=== PATIENT | male | born 1930 | race Caucasian/White ===

== ENCOUNTER → 2016-05-02 | Outpatient (CLI) | payer OTHER, MEDICARE ==
[~2016-05-02] MED LIST: ADVIN25050 INH; ASPCH81X PO; CARV12.52 PO; CZR25 PO; ERGO1CAP35 PO; FLM4 PO; FLUT0.15 NAE; FRRS300 PO; FRS/40 PO; HMLI SC; HYDR-5688 PO; INSDGIPEN SQ; INSU100I2 SC; INSUINJ4 SQ; IPRASOL4 INH; ISOS30TA13 PO; ISOS30TA35 PO; KETO2CRE14 TOP; LOSA1TAB PO; LSX20 PO; LSX40 PO; LSX80 PO; OMEP40CA PO; OMEP40CA41 PO; OXGN; POTA1TAB97 PO; POTA20TA13 PO; PRED1SUS3 OPL; PRVC40 PO; ROPI0.25 PO; SPRIN/30 INH; ZRX5 PO
[2016-05-02 10:17] LABS: ALT/SGPT 15 U/L (12-78); BLOOD UREA NITROGEN 44 mg/dl (7-18); BUN/CREATININE RATIO 25.9 (10-20); CALCIUM 8.9 mg/dl (8.5-10.1); CARBON DIOXIDE 29 mmol/L (21-32); CHLORIDE 101 mmol/L (98-107); CHOLESTEROL 156 mg/dl (0-200); GLUCOSE 115 mg/dl (70-99); POTASSIUM 4.3 mmol/L (3.5-5.1); SODIUM 139 mmol/L (136-145)
[2016-05-02 10:22] LABS: ESTIMATED AVERAGE GLUCOSE 154 mg/dl; HA1C FLAG Normal (Normal)
[2016-05-02 10:27] LABS: ALB/GLOB RATIO 0.9 (0.9-2); ALKALINE PHOSPHATASE 86 U/L (45-117); AST/SGOT 13 U/L (15-37); HDL CHOLESTEROL 39 mg/dl; LDL CHOLESTEROL CALCULATED 99 mg/dl; TRIGLYCERIDES 89 mg/dl (0-150); VERY LOW DENSITY LIPOPROT CALC 18 mg/dl
[2016-05-02 10:43] LABS: RATIO 17.4 mcg/mg (0-30.0)
== END | disposition home or self-care (01) ==
LOC: C.LABSPEC 10:38
PROVIDERS: ATTEND Nurse Practitioner Family
DX: E11.21 Type 2 diabetes mellitus with diabetic nephropathy (principal)

== ENCOUNTER → 2016-05-14 | Outpatient (CLI) | payer OTHER, MEDICARE ==
[2016-05-14 13:10] LABS: HEMATOCRIT 34.1 % (42-52); MEAN CELL VOLUME 93.4 fL (80-100); MEAN CORPUSCULAR HEMOGLOBIN 27.7 pg (25-34); MEAN CORPUSCULAR HGB CONC 29.6 g/dl (32-36); MEAN PLATELET VOLUME 11.5 fL (7.4-10.4); PLATELET COUNT 184 K/uL (130-400); RED BLOOD COUNT 3.65 M/uL (4.7-6.1); WHITE BLOOD COUNT 8.29 K/uL (4.8-10.8)
[2016-05-14 13:27] LABS: URINE APPEARANCE CLEAR (CLEAR); URINE BILIRUBIN NEG (NEG); URINE COLOR YELLOW; URINE EPITHELIAL CELL AUTO 0-5 /lpf (0-5); URINE NITRITE NEG (NEG); URINE SPECIFIC GRAVITY 1.011 (1.000-1.030); UROBILINOGEN NEG (NEG)
[2016-05-14 13:32] LABS: MANUAL MICROSCOPIC REQUIRED? NO; REVIEW REQ? NO
[2016-05-14 13:44] LABS: ALKALINE PHOSPHATASE 84 U/L (45-117); ALT/SGPT 16 U/L (12-78); AST/SGOT 12 U/L (15-37); BLOOD UREA NITROGEN 35 mg/dl (7-18); CALCIUM 9.5 mg/dl (8.5-10.1); CARBON DIOXIDE 33 mmol/L (21-32); CHLORIDE 103 mmol/L (98-107); GLUCOSE 42 mg/dl (70-99); POTASSIUM 4.3 mmol/L (3.5-5.1); SODIUM 142 mmol/L (136-145)
[2016-05-14 13:51] LABS: URINE PROTIEN/CREAT RATIO 0.1 (0-0.2); URINE TOTAL PROTEIN 7.1 mg/dl (0-11.9)
== END | disposition home or self-care (01) ==
LOC: C.LAB1850 11:15
PROVIDERS: ATTEND Internal Medicine Nephrology
DX: Z00.00 Encounter for general adult medical examination without abnormal findings (principal); E55.9 Vitamin D deficiency, unspecified; E11.22 Type 2 diabetes mellitus with diabetic chronic kidney disease; I12.9 Hypertensive chronic kidney disease with stage 1 through stage 4 chronic kidney disease, or unspecified chronic kidney disease; D64.9 Anemia, unspecified; R60.9 Edema, unspecified; N18.3 Chronic kidney disease, stage 3 (moderate)

== ENCOUNTER 2016-06-07 11:38 | Inpatient (IN) | payer OTHER, MEDICARE ==
[~2016-06-07] VITALS: Ht 177.8 cm; Wt 106.7 kg
[~2016-06-07 11:38] MED LIST changes: -ADVIN25050 INH; -CZR25 PO; -FLM4 PO; -FRRS300 PO; -INSDGIPEN SQ; -INSU100I2 SC; -ISOS30TA35 PO; -LSX20 PO; -LSX40 PO; -LSX80 PO; -OMEP40CA41 PO; -OXGN; -POTA20TA13 PO; -SPRIN/30 INH; -ZRX5 PO
--- NOTE | 2016-06-07 12:30 | EMERGENCY ROOM VISIT NOTE ---
History Report prepared by Lobo: Christopher Medina Under the Supervision of: Dr. Ilir Hampton M.D. First contact with patient: 12:18 Chief Complaint: RESPIRATORY DISTRESS Stated Complaint: SHORTNESS OF BREATH Nursing Triage Summary: Patient arrives via ALS from [facility] with complaints of SOB, worsens on exertion. HX of COPD and CHF. EMS reports patients pulse ox was in 80's at doc. office -- 2L applied and increased to 94% according to EMS. Bilateral wheezes noted along with dim lung sounds. History of Present Illness The patient is an 85 year old male with a history of COPD, CHF, a heart attack, and bypass surgery who presents to the Emergency Room via ALS with complaints of worsening shortness of breath that started a couple months ago. Per the patient's family, the patient is chronically short of breath, but his breathing has gotten much worse recently. The patient's shortness of breath is worsened on exertion. The patient has been treated for this shortness of breath in the past. 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 He notes that he has had a bit of coughing this morning, but not too much lately. The patient has anemia, and had blood work drawn yesterday. There is speculation that the patient is losing blood somehow, and he is very low on iron. His hemoglobin yesterday was 9. He does not wear oxygen at home, but he is in the high 80s currently. The patient denies any fevers, chest pain or new leg swelling. He does take at least 20 mg Lasix per day. He has used many inhalers, and has a nebulizer, which he uses 3 times per day. The patient is diabetic. He is not on any blood thinners. Source of History: patient, family Onset: A couple months ago Position: other (global - sob) Symptom Intensity: oxygen is in high 80s Timing: worsening Modifying Factors (Worsening): exertion Associated Symptoms: + cough, No chest pain, No fevers Note: Associated symptoms: Denies any new leg swelling. Review of Systems See HPI for pertinent positives & negatives. A total of 10 systems reviewed and were otherwise negative. Past Medical & Surgical Medical Problems: (1) CHF (congestive heart failure) (2) COPD (chronic obstructive pulmonary disease) (3) Diabetes (4) Heart disease Surgical Problems: (1) H/O heart bypass surgery Old medical records were reviewed. Nurse's notes were reviewed and I agree with. He does have a history of CHF. He is unsure if he has gained weight. He does not wear home oxygen Family History Family history omitted secondary to advanced age. Social History Smoking Status: Former Smoker Alcohol Use: none Drug Use: none Marital Status: Occupation Status: retired Current/Historical Medications Scheduled Aspirin (Aspirin Chewable), 81 MG PO QAM Carvedilol (Coreg), 12.5 MG PO BID Ergocalciferol (Vitamin D Cap), 50,000 INTER.UNIT PO WK Furosemide (Lasix), 1 TAB PO BID Insulin Glargine (Lantus Solostar Pen), 55 UNITS SQ HS Insulin Lispro (Humalog), 30 UNITS SC AC Isosorbide Mononitrate (Imdur), 30 MG PO QAM Ketoconazole 2% (Nizoral 2%), 1 APPLN TOP BID Losartan Potassium (Cozaar), 0.5 TAB PO QAM Omeprazole (Prilosec), 40 MG PO QAM Potassium Chloride (K-Tab), 1 TAB PO QAM Pravastatin Sod (Pravastatin Sodium), 1 TAB PO QPM Prednisolone Acetate 1% Oph (Pred Forte 1% Oph), 1 DROP OPL QAM Ropinirole (Requip), 0.25 MG PO HS Scheduled PRN Fluticasone Propionate (Nasal) (Flonase Allergy Relief), 2 SPRAY ELEUTERIO DAILY PRN for ALLERGY RELIEF Hydrocodone/Acetaminophen 5MG/325MG ([place] 5MG/325MG), 1-2 TABLET PO Q4H PRN for Pain Ipratropium-Albuterol (Duoneb), 1 TREATMENT INH Q6H PRN for Shortness of Breath Allergies Coded Allergies: Sulfa Antibiotics (Verified Allergy, Mild, RASH, 01/05/16) Atorvastatin (Verified Adverse Reaction, Mild, MYALGIA, 01/05/16) Enalapril (Verified Adverse Reaction, Mild, COUGH, 01/05/16) Simvastatin (Verified Adverse Reaction, Mild, MYALGIA, 01/05/16) Physical Exam Vital Signs Date Time Temp Pulse Resp B/P Pulse Ox O2 Delivery O2 Flow Rate FiO2 06/07/16 13:35 76 18 111/58 96 Nasal Cannula 2.0 06/07/16 13:05 74 20 114/58 96 Nasal Cannula 2.0 06/07/16 12:00 95 Nasal Cannula 2.0 06/07/16 11:54 97 Nasal Cannula 2.0 06/07/16 11:54 97 Nasal Cannula 2.0 06/07/16 11:54 36.8 87 20 127/68 86 Room Air 06/07/16 11:50 80 Physical Exam General: Well developed well nourished non ill appearing older male in no acute distress, resting comfortably on supplemental oxygen. Normal speech HEENT: Normal cephalic atraumatic. Pupils are equal round and reactive to light. Extraocular movements are intact. Oropharynx is pink with moist mucous membranes. No swelling of the mouth lips or tongue. Neck: Supple with a midline trachea. No meningeal signs or stiffness, no JVD or bruits. No Stridor. Chest: Crackles in bases, otherwise clear. Heart: regular rate and rhythm. Abdomen: Soft nontender, nondistended without rebound guarding or rigidity. Extremities: Bilateral pitting edema, left greater than right. No calf tenderness or assymetry Spine/Back. Non tender to palpation. No CVA tenderness Skin: Good turgor without rashes. Neurologic exam: Cranial nerves two through 12 are intact. Motor and sensation are intact and symmetrical throughout. Medical Decision & Procedures ER Provider Diagnostic Interpretation: X-ray results as stated below per interpretation by me and the radiologist: SINGLE VIEW CHEST CLINICAL HISTORY: Atypical chest pain. FINDINGS: An AP, portable, upright chest radiograph is compared to study dated 11/30/2014. The examination is degraded by portable technique and patient rotation. The patient is status post midline sternotomy. The heart is enlarged and there is atherosclerotic calcification of the thoracic aorta. There is pulmonary vascular congestion and mild interstitial edema. No focal airspace consolidation or large pleural effusion is identified. No pneumothorax is seen. The skeletal structures are osteopenic. Degenerative change is noted throughout the thoracic spine. IMPRESSION: Cardiomegaly with evidence of congestive failure and interstitial edema. Electronically signed by: Sheldon Oliva M.D. 06/07/2016 12:45 PM Dictated Date/Time: 06/07/2016 12:43 PM Laboratory Results 06/07/16 13:00 Red Blood Count 3.22, Mean Corpuscular Volume 93.5, Mean Corpuscular Hemoglobin 28.0, Mean Corpuscular Hemoglobin Concent 29.9, Mean Platelet Volume 10.6, Neutrophils (%) (Auto) 69.5, Lymphocytes (%) (Auto) 16.1, Monocytes (%) (Auto) 11.6, Eosinophils (%) (Auto) 1.5, Basophils (%) (Auto) 0.7, Neutrophils # (Auto ) 4.95, Lymphocytes # (Auto) 1.15, Monocytes # (Auto) 0.83, Eosinophils # (Auto ) 0.11, Basophils # (Auto) 0.05 06/07/16 13:00 Test 06/07/16 12:42 06/07/16 13:00 06/07/16 13:03 Bedside Glucose 174 mg/dl (70-99) White Blood Count 7.13 K/uL (4.8-10.8) Red Blood Count 3.22 M/uL (4.7-6.1) Hemoglobin 9.0 g/dL (14.0-18.0) Hematocrit 30.1 % (42-52) Mean Corpuscular Volume 93.5 fL (80-100) Mean Corpuscular Hemoglobin 28.0 pg (25-34) Mean Corpuscular Hemoglobin Concent 29.9 g/dl (32-36) Platelet Count 149 K/uL (130-400) Mean Platelet Volume 10.6 fL (7.4-10.4) Neutrophils (%) (Auto) 69.5 % Lymphocytes (%) (Auto) 16.1 % Monocytes (%) (Auto) 11.6 % Eosinophils (%) (Auto) 1.5 % Basophils (%) (Auto) 0.7 % Neutrophils # (Auto) 4.95 K/uL (1.4-6.5) Lymphocytes # (Auto) 1.15 K/uL (1.2-3.4) Monocytes # (Auto) 0.83 K/uL (0.11-0.59) Eosinophils # (Auto) 0.11 K/uL (0-0.5) Basophils # (Auto) 0.05 K/uL (0-0.2) RDW Standard Deviation 54.1 fL (36.4-46.3) RDW Coefficient of Variation 15.6 % (11.5-14.5) Immature Granulocyte % (Auto) 0.6 % Immature Granulocyte # (Auto) 0.04 K/uL (0.00-0.02) Prothrombin Time 12.7 SECONDS (9.0-12.0) Prothromb Time International Ratio 1.2 (0.9-1.1) Activated Partial Thromboplast Time 28.3 SECONDS (21.0-31.0) Partial Thromboplastin Ratio 1.1 Anion Gap 3.0 mmol/L (3-11) Est Creatinine Clear Calc Drug Dose 45.3 ml/min Estimated GFR () 48.2 Estimated GFR (Non- 41.6 BUN/Creatinine Ratio 28.7 (10-20) Calcium Level 9.0 mg/dl (8.5-10.1) Total Bilirubin 0.5 mg/dl (0.2-1) Direct Bilirubin 0.2 mg/dl (0-0.2) Aspartate Amino Transf (AST/SGOT) 17 U/L (15-37) Alanine Aminotransferase (ALT/SGPT) 18 U/L (12-78) Alkaline Phosphatase 82 U/L (45-117) Total Creatine Kinase 73 U/L (39-308) Creatine Kinase MB 4.6 ng/ml (0.5-3.6) Creatine Kinase MB Ratio 6.3 (0-3.0) Total Protein 7.1 gm/dl (6.4-8.2) Albumin 3.4 gm/dl (3.4-5.0) Lipase 120 U/L (73-393) Thyroid Stimulating Hormone (TSH) 4.590 uIu/ml (0.300-4.500) Bedside Troponin I 0.620 ng/ml (0-0.045) [id number]-Type Natriuretic Peptide 2851 pg/ml (0-1800) Laboratory studies as stated above per my review. Medications Administered Medications (Trade) Dose Ordered Sig/Dafne Route Start Time Stop Time Status Last Admin Dose Admin Albuterol Sulfate (Ventolin 0.083% 2.5MG/3ML Neb) 2.5 mg NOW STAT INH 06/07/16 12:31 06/07/16 12:33 DC 06/07/16 12:47 2.5 MG Furosemide (Lasix Inj) 20 mg NOW STAT IV 06/07/16 13:28 06/07/16 13:29 DC 06/07/16 13:34 20 MG ECG Indication: SOB/dyspnea Rate (beats per minute): 75 Findings: PAC (occasional), other (mild widening of QRS with nonspecific intraventricular conduction delay, nonspecific T-wave abnormalities) Comparison ECG Date: compared to May 19 2012, normal sinus rhythm has replaced atrial fibrillation ED Course 1219: Past medical records reviewed. The patient was evaluated in room A9B, and a complete history and physical examination were performed. 1231: Ordered Ventolin 0.083% 2.5MG/3ML Neb 2.5 mg INH. 1323: Upon reevaluation, the patient is resting comfortably. I discussed the results and treatment plan with the patient. She verbalized agreement of the treatment plan. The patient will be evaluated for further management. 1328: Ordered Lasix Inj 20 mg IV. 1344: I discussed the patient with Dr. Jolene SILVER hospitalist - he will evaluate the patient for further treatment. Medical Decision Differentials include, but are not limited to; CHF, COPD, cardiac disease, anemia, electrolyte or metabolic abnormality. This patient comes in as described above. He was placed in room A9. Here for treatment evaluation of increasing shortness of breath. He appears well on exam however when he exerts himself, he gets dyspnea on exertion. He does have some peripheral edema. He is on Lasix and he fdoes seem to take its intermittently. IV access established, EKG, and chest x-ray was obtained. He does have some crackles in the bases. On exam chest x-ray confirms CHF. BNP was also elevated troponin was also mildly elevated. He's had no chest pain. His EKG does not appear ischemic. He does have elevated BUN and creatinine however this is about baseline is potassium is mildly elevated at 5.2. He was given Lasix 20 mg IV. I do think he needs to be admitted for diuresis further treatment and evaluation and cardiac evaluation. I have consulted Dr. Stevenson who will see the patient and the ER and admit him for these measures. Consults Time Called: 1330 Consulting Physician: Dr. Jolene SILVER hospitalist Returned Call: 1342 I discussed the patient with Dr. Jolene dai - he will evaluate the patient for further treatment. Impression Primary Impression: CHF (congestive heart failure) Additional Impressions: Shortness of breath Hypoxemia Scribe Attestation The scribe's documentation has been prepared under my direction and personally reviewed by me in its entirety. I confirm that the note above accurately reflects all work, treatment, procedures, and medical decision making performed by me. Departure Information Dispostion Being Evaluated By Hospitalist Eren Ross M.D. (PCP) Patient Instructions Asthma - [facility], COPD - [facility], Croup - [facility], My [facility] Problem Qualifiers
[2016-06-07] MEDS ORDERED: ALBUTEROL 0.083% NEBU SOLN 3 ML VIAL INH STA (12:31)
--- NOTE | 2016-06-07 12:47 | DIAGNOSTIC IMAGING REPORT ---
SINGLE VIEW CHEST CLINICAL HISTORY: Atypical chest pain. FINDINGS: An AP, portable, upright chest radiograph is compared to study dated 11/30/2014. The examination is degraded by portable technique and patient rotation. The patient is status post midline sternotomy. The heart is enlarged and there is atherosclerotic calcification of the thoracic aorta. There is pulmonary vascular congestion and mild interstitial edema. No focal airspace consolidation or large pleural effusion is identified. No pneumothorax is seen. The skeletal structures are osteopenic. Degenerative change is noted throughout the thoracic spine. IMPRESSION: Cardiomegaly with evidence of congestive failure and interstitial edema. Electronically signed by: Sheldon Oliva M.D. 06/07/2016 12:45 PM Dictated Date/Time: 06/07/2016 12:43 PM
[2016-06-07 13:22] LABS: BASO % 0.7 %; BASO ABS # 0.05 K/uL (0-0.2); COMPLETE YES; EOS % 1.5 %; HEMATOCRIT 30.1 % (42-52); IG% 0.6 %; LYMPH % 16.1 %; LYMPH ABS # 1.15 K/uL (1.2-3.4); MEAN CELL VOLUME 93.5 fL (80-100); MEAN CORPUSCULAR HGB CONC 29.9 g/dl (32-36); MEAN PLATELET VOLUME 10.6 fL (7.4-10.4); MONO % 11.6 %; NEUT % 69.5 %; PLATELET COUNT 149 K/uL (130-400); RED BLOOD COUNT 3.22 M/uL (4.7-6.1); WHITE BLOOD COUNT 7.13 K/uL (4.8-10.8)
[2016-06-07 13:24] LABS: POINT OF CARE TROPONIN I 0.62 ng/ml (0-0.045)
[2016-06-07] MEDS ORDERED: FUROSEMIDE 40 MG/4 ML VIAL IV STA (13:28)
[2016-06-07 13:32] LABS: INR 1.2 (0.9-1.1); PARTIAL THROMBOPLASTIN RATIO 1.1; PROTHROMBIN TIME (PATIENT) 12.7 SECONDS (9.0-12.0)
[2016-06-07 13:39] LABS: BUN/CREATININE RATIO 28.7 (10-20); CREATININE 1.5 mg/dl (0.60-1.40); POTASSIUM 5.2 mmol/L (3.5-5.1)
[2016-06-07 13:50] LABS: CKMB/CK RATIO 6.3 (0-3.0); THYROID STIMULATING HORMONE 4.59 uIu/ml (0.300-4.500)
--- NOTE | 2016-06-07 14:54 | History and Physical ---
History & Physical Date & Time of Service: Jun 07, 2016 at 14:03 Chief Complaint: Shortness Of Breath Primary Care Physician: Eren Turner M.D. History of Present Illness Source: patient 85 year old male presents with 6 week history of progressively worsening SOB and lightheaded/dizziness, without LOC/falls. Associated with mild nausea, but no vomiting. Patient admits to having low energy. At baseline, patient denies exertional symptoms. He was able to walk and perform activities of daily living. Stairs were avoided, but patient claims he was able to do them slowly. Patient denies chest pain, diaphoresis, palpitations, cyanosis. Patient has had issues with sleep, he feels restless, which has been ongoing for a couple of months. Sleeps with a CPAP every night. Does not have home oxygen. Unable to lie flat in bed, but otherwise denies PND. Patient was prescribed Lasix 40mg, but has only been taking 40mg intermittently. On most days he is only taking 20mg to avoid spending excessive times in the bathroom urinating. Some education of patient required as patient was told that he needs to take Lasix in the morning, but avoided the 40mg because urination was impeding morning plans. Patient advised to take the 40mg at home after he returns from morning errands. Patient weighs himself very sporadically. But admits that he has experienced leg swelling and his clothes fit more tightly in the last 2 months. Patient says his baseline iron levels are 9-10. He is not on iron supplementation, but does take centrum multivitamin OTC. Patient denies blood in stool or urine, excessive bruising or bleeds otherwise. Previously similar episode of SOB 3-4 years ago, patient was found to have low iron then. Patient was given IV iron weekly x 6 weeks. He denies cause of low iron found at that time. He had a colonoscopy at the time, and patient states nothing abnormal was detected. Rent And Miscellaneous Remittance Clerk: Dr. Gann Solar Installer: Dr. Ferreira Past Medical/Surgical History Medical Problems: (1) CHF (congestive heart failure) Status: Resolved (2) COPD (chronic obstructive pulmonary disease) Status: Chronic (3) Diabetes Status: Chronic (4) Heart disease Status: Resolved Surgical Problems: (1) H/O heart bypass surgery Status: Resolved Social History Smoking Status: Former Smoker (ex- smoker of 1 year. 35 pack year history) Drug Use: none Marital Status: Housing status: lives with significant other Occupational Status: retired Immunizations History of Influenza Vaccine: Yes Influenza Vaccine Date: Nov 26, 2011 History of Tetanus Vaccine?: Unknown History of Pneumococcal: Yes History of Hepatitis B Vaccine: Unknown Multi-Drug Resistant Organisms History of MDRO: No Allergies Coded Allergies: Sulfa Antibiotics (Verified Allergy, Intermediate, RASH, 06/07/16) Atorvastatin (Verified Adverse Reaction, Mild, MYALGIA, 06/07/16) Enalapril (Verified Adverse Reaction, Mild, COUGH, 06/07/16) Simvastatin (Verified Adverse Reaction, Mild, MYALGIA, 06/07/16) Home Medications Scheduled Aspirin (Aspirin Chewable), 81 MG PO QAM Carvedilol (Coreg), 12.5 MG PO BID Furosemide (Furosemide), 1 TAB PO BID Insulin Glargine (Lantus Solostar), 55 UNITS SQ HS Insulin Lispro (Human) (Humalog Kwikpen), 30 UNITS SC AC Isosorbide Mononitrate Ext Rel (Imdur Ext Rel), 1 TAB PO DAILY Losartan Potassium (Losartan Potassium), 1 TAB PO DAILY Metolazone (Metolazone), 1 TAB PO DAILY Omeprazole (Prilosec), 1 TAB PO DAILY Potassium Chloride Microencaps (Potassium Chloride Er), 1 TAB PO DAILY Tiotropium [place] (Spiriva Handihaler), 1 PUFF INH DAILY Scheduled PRN Fluticasone Propionate (Nasal) (Flonase Allergy Relief), 2 SPRAY ELEUTERIO DAILY PRN for ALLERGY RELIEF Ipratropium-Albuterol (Duoneb), 1 TREATMENT INH Q6H PRN for Shortness of Breath Review of Systems Constitutional: + fatigue, + weakness, No chills, No fever, No sweats Respiratory: + cough (present at baseline), + dyspnea on exertion, + shortness of breath, No dyspnea at rest Cardiovascular: + edema, + orthopnea, No PND, No chest pain Abdomen: + nausea, No GI bleeding, No constipation, No diarrhea, No vomiting Musculoskeletal: + joint pain (ongoing) Genitourinary - Male: No dysuria, No hematuria Allergic / Immunologic: No environmental allergies, No food allergies, No seasonal allergies Physical Exam Vital Signs Date Time Temp Pulse Resp B/P Pulse Ox O2 Delivery O2 Flow Rate FiO2 06/07/16 13:35 76 18 111/58 96 Nasal Cannula 2.0 06/07/16 13:05 74 20 114/58 96 Nasal Cannula 2.0 06/07/16 12:00 95 Nasal Cannula 2.0 06/07/16 11:54 97 Nasal Cannula 2.0 06/07/16 11:54 97 Nasal Cannula 2.0 06/07/16 11:54 36.8 87 20 127/68 86 Room Air 06/07/16 11:50 80 General Appearance: WD/WN, + mild distress Head: normocephalic, atraumatic Eyes: normal inspection, PERRL, EOMI, sclerae normal, + pertinent finding ( conjunctival pallor) ENT: pharynx normal Neck: supple, no adenopathy, thyroid normal, + JVD Respiratory/Chest: chest non-tender, no accessory muscle use, + respiratory distress, + decreased breath sounds (bibasilar), + crackles Cardiovascular: regular rate, rhythm, normal peripheral pulses, + JVD, + systolic murmur Abdomen/GI: normal bowel sounds, non tender, + distended Extremities/Musculoskelatal: no calf tenderness, + pedal edema, + swelling Neurologic/Psych: alert, normal mood/affect, oriented x 3 Skin: normal color, warm/dry, + pertinent finding (skin changes consistent with chronic venous inufficiency) Diagnostics Laboratory Results Results Past 24 Hours Test 06/07/16 12:42 06/07/16 13:00 06/07/16 13:03 Range/Units Bedside Glucose 174 70-99 mg/dl White Blood Count 7.13 4.8-10.8 K/uL Red Blood Count 3.22 4.7-6.1 M/uL Hemoglobin 9.0 14.0-18.0 g/dL Hematocrit 30.1 42-52 % Mean Corpuscular Volume 93.5 80-100 fL Mean Corpuscular Hemoglobin 28.0 25-34 pg Mean Corpuscular Hemoglobin Concent 29.9 32-36 g/dl Platelet Count 149 130-400 K/uL Mean Platelet Volume 10.6 7.4-10.4 fL Neutrophils (%) (Auto) 69.5 % Lymphocytes (%) (Auto) 16.1 % Monocytes (%) (Auto) 11.6 % Eosinophils (%) (Auto) 1.5 % Basophils (%) (Auto) 0.7 % Neutrophils # (Auto) 4.95 1.4-6.5 K/uL Lymphocytes # (Auto) 1.15 1.2-3.4 K/uL Monocytes # (Auto) 0.83 0.11-0.59 K/uL Eosinophils # (Auto) 0.11 0-0.5 K/uL Basophils # (Auto) 0.05 0-0.2 K/uL RDW Standard Deviation 54.1 36.4-46.3 fL RDW Coefficient of Variation 15.6 11.5-14.5 % Immature Granulocyte % (Auto) 0.6 % Immature Granulocyte # (Auto) 0.04 0.00-0.02 K/uL Prothrombin Time 12.7 9.0-12.0 SECONDS Prothromb Time International Ratio 1.2 0.9-1.1 Activated Partial Thromboplast Time 28.3 21.0-31.0 SECONDS Partial Thromboplastin Ratio 1.1 Sodium Level 142 136-145 mmol/L Potassium Level 5.2 3.5-5.1 mmol/L Chloride Level 107 98-107 mmol/L Carbon Dioxide Level 32 21-32 mmol/L Anion Gap 3.0 3-11 mmol/L Blood Urea Nitrogen 43 7-18 mg/dl Creatinine 1.50 0.60-1.40 mg/dl Est Creatinine Clear Calc Drug Dose 45.3 ml/min Estimated GFR () 48.2 Estimated GFR (Non- 41.6 BUN/Creatinine Ratio 28.7 10-20 Random Glucose 167 70-99 mg/dl Calcium Level 9.0 8.5-10.1 mg/dl Total Bilirubin 0.5 0.2-1 mg/dl Direct Bilirubin 0.2 0-0.2 mg/dl Aspartate Amino Transf (AST/SGOT) 17 15-37 U/L Alanine Aminotransferase (ALT/SGPT) 18 12-78 U/L Alkaline Phosphatase 82 45-117 U/L Total Creatine Kinase 73 39-308 U/L Creatine Kinase MB 4.6 0.5-3.6 ng/ml Creatine Kinase MB Ratio 6.3 0-3.0 Total Protein 7.1 6.4-8.2 gm/dl Albumin 3.4 3.4-5.0 gm/dl Lipase 120 73-393 U/L Thyroid Stimulating Hormone (TSH) 4.590 0.300-4.500 uIu/ml Bedside Troponin I 0.620 0-0.045 ng/ml [id number]-Type Natriuretic Peptide 2851 0-1800 pg/ml other (Cardiomegaly with evidence of congestive failure and interstitial) EKG Normal sinus rhythm with PACs, ST & T wave abnormality, , consider inferior ischemia T wave inversion less evident in Inferior leads T wave inversion now evident in Lateral leads Abnormal ECG Compared with ECG of 19-MAY-2012 15:07, Sinus rhythm has replaced Atrial fibrillation other (Normal sinus rhythm with PACs, T wave inversion in lateral leads) Impression Assessment and Plan 85 year old male admitted for acute on chronic CHF with elevated troponin and EKG changes noted. Acute CHF with hypoxemia - Switch from Lasix 40mg daily to Lasix IV 40mg BID - Continue metolazone 5mg half hour before morning dose of lasix - Continue KCl supplementation - Monitor BMP - Strict I/O's, daily weights, AHA and salt restricted diet - O2 via NC as per protocol Anemia - Anemia workup: ferritin, TIBC, retic count, ESR, B12, folate, FOBT - Monitor H/H - Consider hematology vs. GI consult BPH - Started on Tamsulosin 0.4mg HS upon admission COPD - Continue Spiriva and DuoNeb DM - Continue Glargine 55units HS and hold Humalog 30units before meals. Start insulin sliding scale ACHS MS s/p CABG in 1988 - Serial trops q8h x 2 more - Cardiology consult in view of elevated initial troponin - Repeat EKG - Echo - Continue aspirin 81mg daily, carvedilol 12.5mg BID, Imdur 30 mg qAM, pravastatin 40mg qPM, Losartan 12.5mg qAM ATILIO - CPAP overnight GERD - Pantoprazole PO 40mg qAM DVT prophylaxis - SCDs Code Status: Full code Dispo: Telemetry Level of Care Telemetry Advanced Directives Existing Advance Directive: No Existing Living Will: Yes Existing Power of Department Supervisor: No Existing Health Care Proxy: No Resuscitation Status FULL RESUSCITATION VTE Prophylaxis VTE Risk Assessment Done? Y/N: Yes Risk Level: Moderate Given or contraindicated: SCD's Social Service Consult None Apply Assessment and Plan Attending Addendum: I have physically seen and examined this patient, have directed their medical care, have supervised the medical residents activities, and agree with the H&P as noted above, with the following changes: NONE
[2016-06-07] MEDS ORDERED: ACETAMINOPHEN 325 MG TAB PO PRN (15:15)
[2016-06-07] MEDS ORDERED: ALBUT/IPRATROP 3MG/0.5MG NEB 3 ML VIAL INH PRN (15:15)
[2016-06-07] MEDS ORDERED: ALUMINUM/MAGNESIUM/SIMETH (MAALOX MAX) 30 ML UDC PO PRN (15:15)
[2016-06-07] MEDS ORDERED: MAGNESIUM HYDROXIDE SUSP 30 ML UDC PO PRN (15:15)
[2016-06-07] MEDS ORDERED: ONDANSETRON INJ 2 MG/ML 2 ML VIAL IV PRN (15:15)
[2016-06-07] MEDS ORDERED: HYDROCODONE/ACETAMOPHEN 5/325MG TAB PO PRN (15:15)
[2016-06-07] MEDS ORDERED: SPRIN/30 INH (15:23)
[2016-06-07] MEDS ORDERED: INSDGIPEN SQ (15:23)
[2016-06-07] MEDS ORDERED: ZRX5 PO (15:23)
[2016-06-07] MEDS ORDERED: INSU100I2 SC (15:23)
[2016-06-07] MEDS ORDERED: POTA20TA13 PO (15:23)
[2016-06-07] MEDS ORDERED: OMEP40CA41 PO (15:23)
[2016-06-07] MEDS ORDERED: ISOS30TA35 PO (15:23)
[2016-06-07] MEDS ORDERED: CZR25 PO (15:23)
[2016-06-07] MEDS ORDERED: LSX40 PO (15:23)
[2016-06-07] MEDS ORDERED: POLYETHYLENE (MIRALAX) 17 GM PACK PO PRN (16:00)
[2016-06-07] MEDS ORDERED: INSULIN ASPART 100 UNITS/ML 3 ML PEN SC SCH (16:00)
[2016-06-07] MEDS ORDERED: GLUCOSE 40% GEL 15 GM TUBE PO PRN (16:15)
[2016-06-07] MEDS ORDERED: GLUCOSE 10 TABS/TUBE PO PRN (16:15)
[2016-06-07] MEDS ORDERED: DEXTROSE 50% 50 ML SYR IV PRN (16:15)
[2016-06-07] MEDS ORDERED: GLUCAGON FOR INJ 1 MG VIAL SQ PRN (16:15)
[2016-06-07 17:01] VITALS: BP 132/74; PULSE 88; TEMP 36.5; O2SAT 98
[2016-06-07 17:04] VITALS: O2SAT 98; BMI 34.5
[2016-06-07 18:00] LABS: FERRITIN 31.2 ng/ml (8.0-388.0)
[2016-06-07] MEDS: INSULIN ASPART 100 UNITS/ML 3 ML PEN SC SCH ×2 (18:12→21:03)
[2016-06-07 18:21] VITALS: BP 132/74; PULSE 88; TEMP 36.5; O2SAT 98
[2016-06-07 19:34] VITALS: BP 139/76; PULSE 94; TEMP 36.5; O2SAT 97
[2016-06-07] MEDS: TAMSULOSIN HCL 0.4 MG CAP PO SCH (20:47)
[2016-06-07] MEDS: PRAVASTATIN SOD 40 MG TAB PO SCH (20:48)
[2016-06-07] MEDS: ROPINIROLE HCL 0.25 MG TAB PO SCH (20:48)
[2016-06-07] MEDS: CARVEDILOL 12.5 MG TAB PO SCH (20:49)
[2016-06-07] MEDS: FUROSEMIDE INJ 40 MG in SYRINGE 0 ML IV SCH (20:50)
[2016-06-07] MEDS: INSULIN GLARGINE SOLOSTAR 100 UNITS/ML 3 ML PEN SQ SCH (21:03)
[2016-06-07] MEDS: KETOCONAZOLE 2% CR 15 GM TUBE EXT SCH (21:06)
[2016-06-07 23:50] VITALS: BP 134/71; PULSE 87; TEMP 36.3; O2SAT 95
[2016-06-08] VITALS (8 sets, daily range): BP systolic 110–138; BP diastolic 58–72; PULSE 67–87; TEMP 35.8–36.6; O2SAT 90–98
[2016-06-08] MEDS: KETOCONAZOLE 2% CR 15 GM TUBE EXT SCH ×2 (07:29→20:55)
[2016-06-08 07:30] LABS: BUN/CREATININE RATIO 28.9 (10-20); CALCIUM 8.9 mg/dl (8.5-10.1); CREATININE 1.5 mg/dl (0.60-1.40); POTASSIUM 4.7 mmol/L (3.5-5.1)
[2016-06-08] MEDS: FUROSEMIDE INJ 40 MG in SYRINGE 0 ML IV SCH ×2 (07:30→17:22)
[2016-06-08] MEDS: ISOSORBIDE MONONITRATE 30 MG TABCR PO SCH (07:30)
[2016-06-08] MEDS: CARVEDILOL 12.5 MG TAB PO SCH ×2 (07:30→20:56)
[2016-06-08] MEDS: LOSARTAN POTASSIUM 25 MG TAB PO SCH (07:31)
[2016-06-08] MEDS: METOLAZONE 5 MG TAB PO SCH (07:32)
[2016-06-08] MEDS: PANTOprazole SOD 40 MG TAB PO SCH (07:32)
[2016-06-08] MEDS: ASPIRIN 81 MG ECTAB PO SCH (07:33)
[2016-06-08] MEDS: TIOTROPIUM BROMIDE 5 PUFF/90 MCG INH INH SCH (07:33)
[2016-06-08] MEDS: PrednisoLONE ACET 1% OP SUSP 5 ML BTL OPL SCH (07:34)
[2016-06-08 07:40] LABS: HEMATOCRIT 32.3 % (42-52); MEAN CELL VOLUME 95.8 fL (80-100); MEAN CORPUSCULAR HEMOGLOBIN 27.6 pg (25-34); MEAN CORPUSCULAR HGB CONC 28.8 g/dl (32-36); MEAN PLATELET VOLUME 11.3 fL (7.4-10.4); PLATELET COUNT 149 K/uL (130-400); RED BLOOD COUNT 3.37 M/uL (4.7-6.1); WHITE BLOOD COUNT 6.93 K/uL (4.8-10.8)
[2016-06-08 07:59] LABS: BASO % 0.6 %; BASO ABS # 0.04 K/uL (0-0.2); COMPLETE YES; IG% 0.4 %; LYMPH % 15.9 %; MONO % 9.4 %; NEUT % 72.7 %
[2016-06-08] MEDS ORDERED: POTASSIUM CHLORIDE 20 MEQ TABCR PO SCH (08:00)
[2016-06-08] MEDS: INSULIN ASPART 100 UNITS/ML 3 ML PEN SC SCH ×4 (08:30→20:59)
[2016-06-08] MEDS ORDERED: NON-FORMULARY MEDICATION (Omeprazole (Prilosec) 40 MG) PO SCH (09:00)
[2016-06-08] MEDS ORDERED: POTASSIUM CHLORIDE PO SCH (09:00)
[2016-06-08] MEDS ORDERED: FUROSEMIDE INJ 40 MG in SYRINGE 0 ML IV SCH (09:00)
--- NOTE | 2016-06-08 09:07 | Clinical Documentation Query ---
IVIS Castle : CLINICAL DOCUMENTATION QUERIES QUERY 1 OF 3 Patient is an 85 year old male admitted for evaluation and treatment of CHF, not otherwise specified. Most recent echocardiogram (05/07) demonstrated a moderately dilated LV with moderately reduced systolic function. Estimated LVEF at this time was 30-35%. Class I diastolic dysfunction also noted. He is being treated with IV Lasix, oral Metazolone, and will be monitored on telemetry with I/O, daily weights, a salt restricted diet, supplemental O2, and serial chemistries. Please specify as able. In your clinical opinion is this patient being managed for: (x ) Acute on chronic systolic congestive heart failure ( ) Other explanation of clinical findings (Please Explain) ( ) Unable to determine (Please Define) ( ) Need to Discuss ( ) Not Agree The medical record reflects the following clinical findings, treatment, and risk factors. Clinical Indicators: As above Treatment:He is being treated with IV Lasix, oral Metazolone, and will be monitored on telemetry with I/O, daily weights, a salt restricted diet, supplemental O2, and serial chemistries Risk Factors:Age, noncompliance, chronic systolic CHF QUERY 2 OF 3 Serum troponin noted to be elevated in the range of 0.807 ng/ml initially, down to 0.416 ng/ml. Initial EKG with ST and T wave abnormalities in inferior leads. Cardiology has been consulted, he is to have an echocardiogram, and is on ASA, Carvedilol, Imdur, Losartan, and Pravastatin in addition to supplemental oxygen. Please clarify as clinically appropriate when/as able. In your clinical opinion is this patient being managed for: ( x ) Myocardial demand ischemia ( ) NSTEMI ( ) Other explanation of clinical findings (Please Explain) ( ) Unable to determine (Please Define) ( ) Need to Discuss ( ) Not Agree The medical record reflects the following clinical findings, treatment, and risk factors. Clinical Indicators: As above Treatment:Cardiology has been consulted, he is to have an echocardiogram, and is on ASA, Carvedilol, Imdur, Losartan, and Pravastatin in addition to supplemental oxygen Risk Factors: Age, acute on chronic systolic CHF, DM, heart disease, COPD QUERY 3 OF 3 Admission BUN and creatinine of 43 mg/dl and 1.50 mg/dl. EMR review demonstrates an estimated GFR range of 36-51 ml/min dating back to 05/15/12. He is being monitored with serial chemistries. Please clarify as clinically appropriate. In your clinical opinion is this patient being managed for: (x ) Chronic kidney disease, stage 3 ( ) Other explanation of clinical findings (Please Explain) ( ) Unable to determine (Please Define) ( ) Need to Discuss ( ) Not Agree The medical record reflects the following clinical findings, treatment, and risk factors. Clinical Indicators: As above Treatment: Serial chemistries Risk Factors: Age, chronic systolic CHF, DM, medications Please clarify and document your clinical opinion in the progress notes and discharge summary. Terms such as "probable", "suspected", "likely", "questionable", "possible", or "still to be ruled out" are acceptable. IF IN AGREEMENT, YOU MUST DOCUMENT ABOVE DIAGNOSTIC STATEMENT IN DAILY PROGRESS NOTES AND DISCHARGE SUMMARY. This document is not part of the patient's record. Thank You, Ilir Zee, LARISSA [phone]
--- NOTE | 2016-06-08 10:17 | Cardiology Consultation ---
Cardiology Consultation Date of Consultation: Jun 08, 2016. Requesting Physician: Dr. Carlton Attending Physician: Dr. Gann Reason for Consultation: Elevated troponin, history of HI Pt evaluation today including: conversation w/ patient, physical exam, chart review, lab review, review of studies, review of inpatient medication list, conversation w/ attending History of Present Illness Mr. Rivera is an 85-year-old male with a past medical history significant for coronary artery disease (CABG x2 in 1996), cardiomyopathy (EF 40-45%), chronic combined systolic and diastolic CHF, mild aortic stenosis, hypertension, hypercholesterolemia, chronic renal insufficiency, insulin dependent diabetes mellitus, and obstructive sleep apnea who presented to the ED yesterday with complaints of worsening dyspnea on exertion over the previous month. Patient has chronic dyspnea with more exertional activities, but over the last few weeks , he has been noting dyspnea with his activities of daily living. He has also noted lower extremity edema as well as abdominal bloating. He denies shortness of breath at rest, orthopnea, or PND. He does not weigh himself regularly at home. He has not been following a low sodium diet and admits to eating potato chips. He has only been taking 40 mg Lasix daily instead of his prescribed 80 mg daily due to frequent urination. He continues with Metolazone 5 mg daily. He denies any chest discomfort or other anginal type symptoms. He notes lightheadedness upon initially standing, which resolves within 1 minute. This has been an ongoing complaint and is stable in nature. He denies syncope, presyncope, palpitations, abnormal bleeding, or cerebrovascular symptoms. Review of Systems: As noted in HPI. All other 10 point ROS otherwise negative. Family History Noncontributory given his own disease. Social History Smoking Status: Former Smoker History of Alcohol Use: Yes (1 DRINK PER DAY) Quit smoking 1 year ago, but previously smoked for 75 years. He drinks 1 alcoholic beverage daily. He denies drug use. Allergies Coded Allergies: Sulfa Antibiotics (Verified Allergy, Intermediate, RASH, 06/07/16) Atorvastatin (Verified Adverse Reaction, Mild, MYALGIA, 06/07/16) Enalapril (Verified Adverse Reaction, Mild, COUGH, 06/07/16) Simvastatin (Verified Adverse Reaction, Mild, MYALGIA, 06/07/16) Medications Current Inpatient Medications Medications (Trade) Dose Ordered Sig/[place] Route Start Time Stop Time Status Last Admin Dose Admin Acetaminophen (Tylenol Tab) 650 mg Q4H PRN PO 06/07/16 15:15 07/07/16 15:14 Al Hydrox/Mg Hydrox/Simethicone (Maalox Max Susp) 15 ml Q4H PRN PO 06/07/16 15:15 07/07/16 15:14 Magnesium Hydroxide (Milk Of Magnesia Susp) 30 ml Q6H PRN PO 06/07/16 15:15 07/07/16 15:14 Polyethylene (Miralax Powder Packet) 17 gm DAILY PRN PO 06/07/16 16:00 07/07/16 15:59 Ondansetron HCl (Zofran Inj) 4 mg Q6H PRN IV 06/07/16 15:15 07/07/16 15:14 Aspirin (Ecotrin Tab) 81 mg QAM PO 06/08/16 08:00 07/08/16 08:59 06/08/16 07:33 81 MG Carvedilol (Coreg Tab) 12.5 mg BID PO 06/07/16 20:00 07/07/16 20:59 06/08/16 07:30 12.5 MG Ergocalciferol (Vitamin D Cap) 50,000 interunit Th@0900 PO 06/14/16 09:00 07/14/16 08:59 Fluticasone Propionate (Flonase Nasal [place]) 2 sprays DAILY PRN ELEUTERIO 06/07/16 15:15 07/07/16 15:14 Acetaminophen/ Hydrocodone Bitart ([place] 5/325 Tab) 1 tab Q4H PRN PO 06/07/16 15:15 06/21/16 15:14 Insulin Glargine (Lantus Solostar Pen) 55 unit HS SQ 06/07/16 21:00 07/07/16 20:59 06/07/16 21:03 55 UNIT Albuterol/ Ipratropium (Duoneb) 3 ml Q6R PRN INH 06/07/16 15:15 07/07/16 15:14 Isosorbide Mononitrate (Imdur Ext Rel Tab) 30 mg QAM PO 06/08/16 08:00 07/08/16 08:59 06/08/16 07:30 30 MG Ketoconazole (Nizoral 2% Crm) 1 appln BID EXT 06/07/16 20:00 06/17/16 20:59 06/08/16 07:29 1 APPLN Losartan Potassium (coZAAR TAB) 12.5 mg QAM PO 06/08/16 08:00 07/08/16 08:59 06/08/16 07:31 12.5 MG Pravastatin Sodium (Pravachol Tab) 40 mg QPM PO 06/07/16 21:00 07/07/16 20:59 06/07/16 20:48 40 MG Prednisolone Acetate (Pred Forte 1% Oph Susp) 1 drops QAM OPL 06/08/16 08:00 07/08/16 08:59 06/08/16 07:34 1 DROPS Ropinirole HCl 0.25 mg 0.25 mg HS PO 06/07/16 21:00 07/07/16 20:59 06/07/16 20:48 0.25 MG Furosemide/Syringe (Lasix Inj/ Syringe) 4 ml @ 4 mls/min BID17 IV 06/07/16 21:00 07/07/16 20:59 06/08/16 07:30 4 MLS/MIN Tiotropium [place] (Spiriva Handihaler Inhaler) 1 puff DAILY INH 06/08/16 08:00 07/08/16 08:59 06/08/16 07:33 1 PUFF Tamsulosin HCl (Flomax Cap) 0.4 mg HS PO 06/07/16 21:00 07/07/16 20:59 06/07/16 20:47 0.4 MG Metolazone (Zaroxolyn Tab) 5 mg DAILY@0830 PO 06/08/16 08:30 07/08/16 08:29 06/08/16 07:32 5 MG Insulin Aspart (novoLOG ASPART) SLIDING SCALE If C... ACHS SC 06/07/16 21:00 07/07/16 20:59 06/08/16 08:30 5 UNITS Glucose (Glucose 40% Gel) UD PRN PO 06/07/16 16:15 07/07/16 16:14 Glucose (Glucose Chew Tab) 1 tabs UD PRN PO 06/07/16 16:15 07/07/16 16:14 Dextrose (Dextrose 50% 50ML Syringe) 50 ml UD PRN IV 06/07/16 16:15 07/07/16 16:14 Glucagon (Glucagon Inj) 1 mg UD PRN SQ 06/07/16 16:15 07/07/16 16:14 Pantoprazole Sodium (Protonix Tab) 40 mg QAM PO 06/08/16 08:00 07/08/16 08:59 06/08/16 07:32 40 MG Physical Exam Vital Signs Past 12 Hours Date Time Temp Pulse Resp B/P Pulse Ox O2 Delivery O2 Flow Rate FiO2 06/08/16 09:07 93 Nasal Cannula 2.0 06/08/16 07:15 36.5 87 16 138/69 90 2.0 06/08/16 04:50 35.8 67 18 110/71 98 BiPAP 06/08/16 04:00 CPAP 2.0 06/08/16 00:01 CPAP 2.0 06/07/16 23:50 36.3 87 18 134/71 95 CPAP Constitutional: Alert, oriented, in no acute distress HEENT: Head is atraumatic and normocephalic. EOMs intact. Sclera anicteric. Face is symmetric. No perioral cyanosis. Mucous membranes moist. Neck: Supple, jugular venous pressure difficult to asses given thick neck Pulmonary: Normal respiratory effort, bibasilar crackles Cardiac: Regular rate and rhythm, normal S1 and S2, no gallops, no rubs, 1/6 basal systolic murmur Extremities: Trace right lower extremity edema. +1 left lower extremity edema. No clubbing or cyanosis. Pulses intact. Abdomen: Obese. Normal bowel sounds, soft, non-tender, no abdominal mass palpated Skin: Chronic venous stasis skin changes of bilateral lower extremities Neurological: Oriented to person, place, and time Data Laboratory Results: Last 24 Hours Test 06/07/16 12:42 06/07/16 13:00 06/07/16 13:03 06/07/16 17:20 Bedside Glucose 174 mg/dl White Blood Count 7.13 K/uL Red Blood Count 3.22 M/uL Hemoglobin 9.0 g/dL Hematocrit 30.1 % Mean Corpuscular Volume 93.5 fL Mean Corpuscular Hemoglobin 28.0 pg Mean Corpuscular Hemoglobin Concent 29.9 g/dl Platelet Count 149 K/uL Mean Platelet Volume 10.6 fL Neutrophils (%) (Auto) 69.5 % Lymphocytes (%) (Auto) 16.1 % Monocytes (%) (Auto) 11.6 % Eosinophils (%) (Auto) 1.5 % Basophils (%) (Auto) 0.7 % Neutrophils # (Auto) 4.95 K/uL Lymphocytes # (Auto) 1.15 K/uL Monocytes # (Auto) 0.83 K/uL Eosinophils # (Auto) 0.11 K/uL Basophils # (Auto) 0.05 K/uL RDW Standard Deviation 54.1 fL RDW Coefficient of Variation 15.6 % Immature Granulocyte % (Auto) 0.6 % Immature Granulocyte # (Auto) 0.04 K/uL Erythrocyte Sedimentation Rate 10 mm/hr Absolute Reticulocyte Count 0.09 10^6/uL Percent Reticulocyte Count 2.8 % Prothrombin Time 12.7 SECONDS Prothromb Time International Ratio 1.2 Activated Partial Thromboplast Time 28.3 SECONDS Partial Thromboplastin Ratio 1.1 Sodium Level 142 mmol/L Potassium Level 5.2 mmol/L Chloride Level 107 mmol/L Carbon Dioxide Level 32 mmol/L Anion Gap 3.0 mmol/L Blood Urea Nitrogen 43 mg/dl Creatinine 1.50 mg/dl Est Creatinine Clear Calc Drug Dose 45.3 ml/min Estimated GFR () 48.2 Estimated GFR (Non- 41.6 BUN/Creatinine Ratio 28.7 Random Glucose 167 mg/dl Calcium Level 9.0 mg/dl Total Bilirubin 0.5 mg/dl Direct Bilirubin 0.2 mg/dl Aspartate Amino Transf (AST/SGOT) 17 U/L Alanine Aminotransferase (ALT/SGPT) 18 U/L Alkaline Phosphatase 82 U/L Total Creatine Kinase 73 U/L Creatine Kinase MB 4.6 ng/ml Creatine Kinase MB Ratio 6.3 Troponin I 0.807 ng/ml 0.869 ng/ml Total Protein 7.1 gm/dl Albumin 3.4 gm/dl Lipase 120 U/L Thyroid Stimulating Hormone (TSH) 4.590 uIu/ml Bedside Troponin I 0.620 ng/ml UT-Xbi-T-Type Natriuretic Peptide 2851 pg/ml Total Iron Binding Capacity 437 mcg/dl Ferritin 31.2 ng/ml Test 06/07/16 17:36 06/07/16 19:40 06/07/16 20:27 06/07/16 22:23 Bedside Glucose 220 mg/dl 199 mg/dl Vitamin B12 Level 614 pg/mL Folate 18.57 ng/mL Troponin I 0.666 ng/ml Test 06/08/16 00:29 06/08/16 06:26 06/08/16 07:57 Bedside Glucose 165 mg/dl 135 mg/dl White Blood Count 6.93 K/uL Red Blood Count 3.37 M/uL Hemoglobin 9.3 g/dL Hematocrit 32.3 % Mean Corpuscular Volume 95.8 fL Mean Corpuscular Hemoglobin 27.6 pg Mean Corpuscular Hemoglobin Concent 28.8 g/dl Platelet Count 149 K/uL Mean Platelet Volume 11.3 fL Neutrophils (%) (Auto) 72.7 % Lymphocytes (%) (Auto) 15.9 % Monocytes (%) (Auto) 9.4 % Eosinophils (%) (Auto) 1.0 % Basophils (%) (Auto) 0.6 % Neutrophils # (Auto) 5.04 K/uL Lymphocytes # (Auto) 1.10 K/uL Monocytes # (Auto) 0.65 K/uL Eosinophils # (Auto) 0.07 K/uL Basophils # (Auto) 0.04 K/uL RDW Standard Deviation 54.2 fL RDW Coefficient of Variation 15.6 % Immature Granulocyte % (Auto) 0.4 % Immature Granulocyte # (Auto) 0.03 K/uL Nucleated RBC Absolute Count (auto) 0.02 K/uL Nucleated Red Blood Cells % 0.3 % Sodium Level 141 mmol/L Potassium Level 4.7 mmol/L Chloride Level 104 mmol/L Carbon Dioxide Level 33 mmol/L Anion Gap 4.0 mmol/L Blood Urea Nitrogen 43 mg/dl Creatinine 1.50 mg/dl Est Creatinine Clear Calc Drug Dose 44.3 ml/min Estimated GFR () 48.2 Estimated GFR (Non- 41.6 BUN/Creatinine Ratio 28.9 Random Glucose 129 mg/dl Calcium Level 8.9 mg/dl Troponin I 0.416 ng/ml CXR: Cardiomegaly with evidence of congestive failure and interstitial edema. EKG 06/07/16: Normal sinus rhythm with PACs. Inferior T wave abnormality. EKG 06/08/16: Normal sinus rhythm. Inferior T wave abnormality. Telemetry reviewed: Sinus rhythm with occasional PVCs Echo 09/18/16: Mildly reduced LV systolic function. EF 40-45%. Inferior wall motion abnormality. Mild aortic stenosis, mitral regurgitation, and tricuspid regurgitation. Assessment & Plan ASSESSMENT/PLAN: 1. Acute on chronic combined systolic and diastolic CHF: He presented with increased SANCHEZ, edema, and abdominal bloating. CXR shows pulmonary vascular congestion, and his BNP was elevated at 2851. The exacerbation is likely due to dietary indiscretion as well as noncompliance with his medication since he has only been taking half his prescribed Lasix dose. He continues to appear hypervolemic on exam. Agree with echocardiogram to ensure his LV systolic function is stable and there are no new wall motion abnormalities. Continue Lasix 40 mg IV BID and Metolazone 5 mg daily 30 mins prior to morning Lasix dose. If he does not received adequate diuresis with this dose, recommending increasing his Lasix to 80 mg IV BID. Recommend close monitoring of I&O's as well as PRP. He was educated on the importance of low sodium diet and daily weights. 2. Elevated troponin: His Troponin peaked at 0.869 and has subsequently trended down. The elevation is likely due to hypervolemia. He denies anginal symptoms, and ECG shows no acute ischemic change. Continue with diuresis as noted above. Echocardiogram pending. 3. Coronary artery disease: He denies angina. Continue aspirin, statin, beta eladio, long acting nitrate, and ARB. Echocardiogram pending. 4. Hypertension: His blood pressure has been well controlled. Continue current therapy. Thank you for allowing us to see this patient in consultation. The patient was seen and discussed with Dr. Gann, and the plan was made in collaboration with him. Attending Pt seen and examined. Agree with Ms. Bobo's assessment and plan.
--- NOTE | 2016-06-08 11:16 | Hospitalist Progress Note ---
Hospitalist Progress Note Date of Service Jun 08, 2016. (Dafne Allred PA-C) Subjective Pt evaluation today including: conversation w/ patient, physical exam, chart review, lab review, review of studies, review of inpatient medication list Patient admits to feeling slightly lightheaded upon standing. Still feeling somewhat short of breath. Particularly winded with exertion. Denies any chest pain or pressure. No heart palpitations. Denies any cough. No fever or chills. Additional Comments: 6 system review negative. Please see pertinent positives in the history of present illness section. (Dafne Allred PA-C) Objective Vital Signs Date Time Temp Pulse Resp B/P Pulse Ox O2 Delivery O2 Flow Rate FiO2 06/08/16 09:07 93 Nasal Cannula 2.0 06/08/16 07:15 36.5 87 16 138/69 90 2.0 06/08/16 04:50 35.8 67 18 110/71 98 BiPAP 06/08/16 04:00 CPAP 2.0 06/08/16 00:01 CPAP 2.0 06/07/16 23:50 36.3 87 18 134/71 95 CPAP 06/07/16 20:20 Nasal Cannula 2.0 06/07/16 19:34 36.5 94 18 139/76 97 Nasal Cannula 2.0 06/07/16 18:21 36.5 88 22 98 2.0 06/07/16 17:04 98 Nasal Cannula 2.0 06/07/16 17:01 36.5 88 22 132/74 98 Nasal Cannula 2.0 06/07/16 15:10 81 22 113/57 97 Nasal Cannula 2.0 06/07/16 13:35 76 18 111/58 96 Nasal Cannula 2.0 06/07/16 13:05 74 20 114/58 96 Nasal Cannula 2.0 06/07/16 12:00 95 Nasal Cannula 2.0 06/07/16 11:54 97 Nasal Cannula 2.0 06/07/16 11:54 97 Nasal Cannula 2.0 06/07/16 11:54 36.8 87 20 127/68 86 Room Air 06/07/16 11:50 80 (Dafne Allred PA-C) Physical Exam General Appearance: + mild distress (mild respiratory distress) Eyes: EOMI ENT: + pertinent finding (oral mucosa slightly dry. No exudate noted.) Neck: no JVD Respiratory/Chest: + pertinent finding (decreased breath sounds at the bases bilaterally. No wheezing or rhonchi.) Cardiovascular: + pertinent finding (occasionally irregular. No murmur auscultated.) Abdomen: normal bowel sounds, non tender, soft Extremities: + pertinent finding (pitting edema in the lower extremities left greater than right. No erythema, warmth or tenderness appreciated.) Neurologic/Psychiatric: no motor/sensory deficits, oriented x 3 Skin: warm/dry (Dafne Allred PA-C) Laboratory Results 06/08/16 06:26 Red Blood Count 3.37, Mean Corpuscular Volume 95.8, Mean Corpuscular Hemoglobin 27.6, Mean Corpuscular Hemoglobin Concent 28.8, Mean Platelet Volume 11.3, Neutrophils (%) (Auto) 72.7, Lymphocytes (%) (Auto) 15.9, Monocytes (%) (Auto) 9.4, Eosinophils (%) (Auto) 1.0, Basophils (%) (Auto) 0.6, Neutrophils # (Auto) 5.04, Lymphocytes # (Auto) 1.10, Monocytes # (Auto) 0.65, Eosinophils # (Auto) 0.07, Basophils # (Auto) 0.04 06/08/16 06:26 Test 06/07/16 13:00 06/07/16 13:03 06/07/16 17:20 06/07/16 19:40 Erythrocyte Sedimentation Rate 10 mm/hr (0-14) Absolute Reticulocyte Count 0.09 10^6/uL (0.02-0.10) Percent Reticulocyte Count 2.8 % (0.5-2.0) Prothrombin Time 12.7 SECONDS (9.0-12.0) Prothromb Time International Ratio 1.2 (0.9-1.1) Activated Partial Thromboplast Time 28.3 SECONDS (21.0-31.0) Partial Thromboplastin Ratio 1.1 Total Bilirubin 0.5 mg/dl (0.2-1) Direct Bilirubin 0.2 mg/dl (0-0.2) Aspartate Amino Transf (AST/SGOT) 17 U/L (15-37) Alanine Aminotransferase (ALT/SGPT) 18 U/L (12-78) Alkaline Phosphatase 82 U/L (45-117) Total Creatine Kinase 73 U/L (39-308) Creatine Kinase MB 4.6 ng/ml (0.5-3.6) Creatine Kinase MB Ratio 6.3 (0-3.0) Total Protein 7.1 gm/dl (6.4-8.2) Albumin 3.4 gm/dl (3.4-5.0) Lipase 120 U/L (73-393) Thyroid Stimulating Hormone (TSH) 4.590 uIu/ml (0.300-4.500) Bedside Troponin I 0.620 ng/ml (0-0.045) AS-Jlc-[id number]-Type Natriuretic Peptide 2851 pg/ml (0-1800) Total Iron Binding Capacity 437 mcg/dl (250-450) Ferritin 31.2 ng/ml (8.0-388.0) Vitamin B12 Level 614 pg/mL (211-911) Folate 18.57 ng/mL (>5.38) Test 06/08/16 06:26 06/08/16 07:57 White Blood Count 6.93 K/uL (4.8-10.8) Red Blood Count 3.37 M/uL (4.7-6.1) Hemoglobin 9.3 g/dL (14.0-18.0) Hematocrit 32.3 % (42-52) Mean Corpuscular Volume 95.8 fL (80-100) Mean Corpuscular Hemoglobin 27.6 pg (25-34) Mean Corpuscular Hemoglobin Concent 28.8 g/dl (32-36) Platelet Count 149 K/uL (130-400) Mean Platelet Volume 11.3 fL (7.4-10.4) Neutrophils (%) (Auto) 72.7 % Lymphocytes (%) (Auto) 15.9 % Monocytes (%) (Auto) 9.4 % Eosinophils (%) (Auto) 1.0 % Basophils (%) (Auto) 0.6 % Neutrophils # (Auto) 5.04 K/uL (1.4-6.5) Lymphocytes # (Auto) 1.10 K/uL (1.2-3.4) Monocytes # (Auto) 0.65 K/uL (0.11-0.59) Eosinophils # (Auto) 0.07 K/uL (0-0.5) Basophils # (Auto) 0.04 K/uL (0-0.2) RDW Standard Deviation 54.2 fL (36.4-46.3) RDW Coefficient of Variation 15.6 % (11.5-14.5) Immature Granulocyte % (Auto) 0.4 % Immature Granulocyte # (Auto) 0.03 K/uL (0.00-0.02) Nucleated RBC Absolute Count (auto) 0.02 K/uL (0-0) Nucleated Red Blood Cells % 0.3 % Anion Gap 4.0 mmol/L (3-11) Est Creatinine Clear Calc Drug Dose 44.3 ml/min Estimated GFR () 48.2 Estimated GFR (Non- 41.6 BUN/Creatinine Ratio 28.9 (10-20) Calcium Level 8.9 mg/dl (8.5-10.1) Troponin I 0.416 ng/ml (0-0.045) Bedside Glucose 135 mg/dl (70-99) Last 24 Hours Test 06/07/16 12:42 06/07/16 13:00 06/07/16 13:03 06/07/16 17:20 Bedside Glucose 174 mg/dl White Blood Count 7.13 K/uL Red Blood Count 3.22 M/uL Hemoglobin 9.0 g/dL Hematocrit 30.1 % Mean Corpuscular Volume 93.5 fL Mean Corpuscular Hemoglobin 28.0 pg Mean Corpuscular Hemoglobin Concent 29.9 g/dl Platelet Count 149 K/uL Mean Platelet Volume 10.6 fL Neutrophils (%) (Auto) 69.5 % Lymphocytes (%) (Auto) 16.1 % Monocytes (%) (Auto) 11.6 % Eosinophils (%) (Auto) 1.5 % Basophils (%) (Auto) 0.7 % Neutrophils # (Auto) 4.95 K/uL Lymphocytes # (Auto) 1.15 K/uL Monocytes # (Auto) 0.83 K/uL Eosinophils # (Auto) 0.11 K/uL Basophils # (Auto) 0.05 K/uL RDW Standard Deviation 54.1 fL RDW Coefficient of Variation 15.6 % Immature Granulocyte % (Auto) 0.6 % Immature Granulocyte # (Auto) 0.04 K/uL Erythrocyte Sedimentation Rate 10 mm/hr Absolute Reticulocyte Count 0.09 10^6/uL Percent Reticulocyte Count 2.8 % Prothrombin Time 12.7 SECONDS Prothromb Time International Ratio 1.2 Activated Partial Thromboplast Time 28.3 SECONDS Partial Thromboplastin Ratio 1.1 Sodium Level 142 mmol/L Potassium Level 5.2 mmol/L Chloride Level 107 mmol/L Carbon Dioxide Level 32 mmol/L Anion Gap 3.0 mmol/L Blood Urea Nitrogen 43 mg/dl Creatinine 1.50 mg/dl Est Creatinine Clear Calc Drug Dose 45.3 ml/min Estimated GFR () 48.2 Estimated GFR (Non- 41.6 BUN/Creatinine Ratio 28.7 Random Glucose 167 mg/dl Calcium Level 9.0 mg/dl Total Bilirubin 0.5 mg/dl Direct Bilirubin 0.2 mg/dl Aspartate Amino Transf (AST/SGOT) 17 U/L Alanine Aminotransferase (ALT/SGPT) 18 U/L Alkaline Phosphatase 82 U/L Total Creatine Kinase 73 U/L Creatine Kinase MB 4.6 ng/ml Creatine Kinase MB Ratio 6.3 Troponin I 0.807 ng/ml 0.869 ng/ml Total Protein 7.1 gm/dl Albumin 3.4 gm/dl Lipase 120 U/L Thyroid Stimulating Hormone (TSH) 4.590 uIu/ml Bedside Troponin I 0.620 ng/ml QG-Atb-[id number]-Type Natriuretic Peptide 2851 pg/ml Total Iron Binding Capacity 437 mcg/dl Ferritin 31.2 ng/ml Test 06/07/16 17:36 06/07/16 19:40 06/07/16 20:27 06/07/16 22:23 Bedside Glucose 220 mg/dl 199 mg/dl Vitamin B12 Level 614 pg/mL Folate 18.57 ng/mL Troponin I 0.666 ng/ml Test 06/08/16 00:29 06/08/16 06:26 06/08/16 07:57 Bedside Glucose 165 mg/dl 135 mg/dl White Blood Count 6.93 K/uL Red Blood Count 3.37 M/uL Hemoglobin 9.3 g/dL Hematocrit 32.3 % Mean Corpuscular Volume 95.8 fL Mean Corpuscular Hemoglobin 27.6 pg Mean Corpuscular Hemoglobin Concent 28.8 g/dl Platelet Count 149 K/uL Mean Platelet Volume 11.3 fL Neutrophils (%) (Auto) 72.7 % Lymphocytes (%) (Auto) 15.9 % Monocytes (%) (Auto) 9.4 % Eosinophils (%) (Auto) 1.0 % Basophils (%) (Auto) 0.6 % Neutrophils # (Auto) 5.04 K/uL Lymphocytes # (Auto) 1.10 K/uL Monocytes # (Auto) 0.65 K/uL Eosinophils # (Auto) 0.07 K/uL Basophils # (Auto) 0.04 K/uL RDW Standard Deviation 54.2 fL RDW Coefficient of Variation 15.6 % Immature Granulocyte % (Auto) 0.4 % Immature Granulocyte # (Auto) 0.03 K/uL Nucleated RBC Absolute Count (auto) 0.02 K/uL Nucleated Red Blood Cells % 0.3 % Sodium Level 141 mmol/L Potassium Level 4.7 mmol/L Chloride Level 104 mmol/L Carbon Dioxide Level 33 mmol/L Anion Gap 4.0 mmol/L Blood Urea Nitrogen 43 mg/dl Creatinine 1.50 mg/dl Est Creatinine Clear Calc Drug Dose 44.3 ml/min Estimated GFR () 48.2 Estimated GFR (Non- 41.6 BUN/Creatinine Ratio 28.9 Random Glucose 129 mg/dl Calcium Level 8.9 mg/dl Troponin I 0.416 ng/ml (Dafne Allred PA-C) Assessment and Plan 85-year-old male presents emergency department with a few weeks of dyspnea on exertion Acute on chronic systolic/diastolic heart failure/acute respiratory failure with hypoxia -Continue diuresis with Lasix 40 mg IV BID -Strict I and O's -Appreciate cardiology consult. I will increase Lasix tomorrow to 80 IV twice a day if he is not adequately diuresing -Continue metolazone -Follow-up echo Elevated troponin-likely secondary to heart failure mixed with renal insufficiency. No anginal symptoms. Trending down. History of coronary artery disease, CABG 2 -Continue aspirin 81 mg daily, Imdur ER 30 mg daily, carvedilol 12.5 mg BID, pravastatin 40 mg daily and losartan 12.5 mg daily Anemia-normocytic normochromic -Vitamin B-12 and folate levels within normal limits -TIBC and ferritin also within normal limits -Follow up fecal occult blood -No need for transfusion at this point Chronic kidney disease stage III-creatinine is at baseline 1.5 Diabetes mellitus type 2 -Continue Lantus 55 units at night and Humalog 30 units TID with meals -Additional coverage with insulin sliding scale is provided DVT prophylaxis -Heparin 5000 u subQ BID -TEDS, SCDs CODE STATUS -LEVEL I FULL CODE (Dafne Allred, PATatyana) Attending Attestation: Pt seen/examined, chart reviewed, care plan d/w LUIS M Allred. I agree w/ the oates components of her documentation. Still w/ dyspnea at rest/exertion & orthopnea. tele stable overnight. VSS no fever minimal diuresis to date gen - dyspneic neck - due to neck size unable to assess JVD heart - RRR, s1, s2, 2/6 systolic murmur RUSB lungs - crackles bases, end-exp wheeze, tachypnea abd - distended, BS+, liver edge not palpable ext - edema present, 2-3+ on left, 1-2+ on right labs - Cr 1.5 noted minor elevations in troponins A/P: 1. acute/chronic systolic/diastolic CHF - due to med/diet noncompliance. Cont lasix diuresis. 2. anemia - ferritin level low-normal. Suspect iron deficiency. Start supplementation. 3. T2DM - cont basal-bolus insulin. 4. CKD stage 3 - daily BMP. 5. ATILIO - CPAP. updated PT, OT while here Lobo Heard MD (Lobo Heard MD)
--- NOTE | 2016-06-08 17:01 | ECHOCARDIOGRAM REPORT ---
*NOTICE TO RECEIVING [employer] This information is strictly Confidential and protected under [place] law. [place] law prohibits you from making any further disclosure of this information unless further disclosure is expressly permitted by the written consent of the person to whom it pertains or is authorized by law. A general authorization for the release of medical or other information is not sufficient for this purpose. Hospital accepts no responsibility if the information is made available to any other person, INCLUDING THE PATIENT. Interpretation Summary * Name: PARVEZ TUTTLE Study Date: 06/08/2016 02:30 PM BP: 118/58 mmHg * Patient Location: [facility] HR: 79 * : 1930 (M/d/yyyy) Gender: Male Height: 70 in * Age: 85 yrs Ethnicity: [place] Weight: 258 lb * Ordering Physician: Bertha Carlton. * Referring Physician: Self, Referred * Performed By: [facility] * * Reason For Study: CHF * BSA: 2.3 m2 * -- Conclusions -- * The left ventricle is moderately dilated. * There is mild concentric left ventricular hypertrophy. * Left ventricular systolic function is moderately reduced. * Diastolic dysfunction, Grade III, consistent with marked congestive heart failure. * There are regional wall motion abnormalities as specified. * The left atrium is borderline dilated. * Mild aortic regurgitation. * Mild valvular aortic stenosis. * Degree of may be underestimated due to reduced LV function * There is moderate mitral regurgitation. * Right ventricular systolic pressure is elevated at >60mmHg. * Mild aortic root dilatation. * Compared to a study from 2013, the aortic root measures larger and the pulmonary pressures are higher, otherwise minimal change Procedure Details * A complete two-dimensional transthoracic echocardiogram was performed (2D, M-mode, Doppler and color flow Doppler). Left Ventricle * The left ventricle is moderately dilated. * There is mild concentric left ventricular hypertrophy. * Ejection Fraction = 25-30%. * Left ventricular systolic function is moderately reduced. * Diastolic dysfunction, Grade III, consistent with marked congestive heart failure. * There are regional wall motion abnormalities as specified. * Inferior wall and septum are severely hypokinetic. Right Ventricle * The right ventricle is normal in size and function. Atria * The left atrium is borderline dilated. * Right atrial size is normal. Mitral Valve * The mitral valve is grossly normal. * There is moderate mitral regurgitation. Tricuspid Valve * The tricuspid valve is not well visualized, but is grossly normal. * There is mild tricuspid regurgitation. * Right ventricular systolic pressure is elevated at >60mmHg. Aortic Valve * Mild valvular aortic stenosis. * Degree of may be underestimated due to reduced LV function * Mild aortic regurgitation. Great Vessels * Mild aortic root dilatation. Pericardium/Pleural * There is no pericardial effusion. Great Vessels * Dilated inferior vena cava with reduced collapsability with sniff indicates an elevated right atrial pressure of 15 mmHg MMode 2D Measurements and Calculations IVSd 1.3 cm IVSs 1.6 cm LVIDd 6.5 cm LVIDs 5.8 cm LVPWd 1.2 cm LVPWs 1.5 cm IVS/LVPW 1.1 FS 9.9 % EDV(Teich) 212.5 ml ESV(Teich) 167.6 ml EF(Teich) 21.1 % EDV(cubed) 268.8 ml ESV(cubed) 196.8 ml EF(cubed) 26.8 % % IVS thick 24.5 % % LVPW thick 25.7 % LV mass(C)d 383.8 grams LV mass(C)dI 165.0 grams/m\S\2 LV mass(C)s 443.9 grams LV mass(C)sI 190.9 grams/m\S\2 SV(Teich) 44.9 ml SI(Teich) 19.3 ml/m\S\2 SV(cubed) 72.1 ml SI(cubed) 31.0 ml/m\S\2 Ao root diam 4.3 cm Ao root area 14.2 cm\S\2 ACS 1.3 cm LA dimension 4.0 cm LA/Ao 0.94 LVOT diam 2.1 cm LVOT area 3.5 cm\S\2 LVAd ap4 45.0 cm\S\2 LVLd ap4 9.6 cm EDV(MOD-sp4) 174.7 ml EDV(sp4-el) 178.7 ml LVAs ap4 38.9 cm\S\2 LVLs ap4 8.6 cm ESV(MOD-sp4) 143.5 ml ESV(sp4-el) 149.7 ml EF(MOD-sp4) 17.9 % EF(sp4-el) 16.2 % LVAd ap2 58.1 cm\S\2 LVLd ap2 9.9 cm EDV(MOD-sp2) 277.9 ml EDV(sp2-el) 290.5 ml LVAs ap2 50.8 cm\S\2 LVLs ap2 10.0 cm ESV(MOD-sp2) 211.4 ml ESV(sp2-el) 219.3 ml EF(MOD-sp2) 23.9 % EF(sp2-el) 24.5 % LVLd %diff 2.5 % EDV(MOD-bp) 221.7 ml LVLs %diff 13.9 % ESV(MOD-bp) 189.6 ml EF(MOD-bp) 14.5 % SV(MOD-sp4) 31.2 ml SI(MOD-sp4) 13.4 ml/m\S\2 SV(MOD-sp2) 66.5 ml SI(MOD-sp2) 28.6 ml/m\S\2 SV(MOD-bp) 32.1 ml SI(MOD-bp) 13.8 ml/m\S\2 SV(sp4-el) 28.9 ml SI(sp4-el) 12.4 ml/m\S\2 SV(sp2-el) 71.2 ml SI(sp2-el) 30.6 ml/m\S\2 Doppler Measurements and Calculations MV E max erinn 146.0 cm/sec MV A max erinn 71.0 cm/sec MV E/A 2.1 MV P1/2t max erinn 146.0 cm/sec MV P1/2t 55.1 msec MVA(P1/2t) 4.0 cm\S\2 MV dec slope 775.4 cm/sec\S\2 MV dec time 0.14 sec Ao V2 max 224.7 cm/sec Ao max PG 20.2 mmHg Ao max PG (full) 17.6 mmHg Ao V2 mean 150.3 cm/sec Ao mean PG 10.7 mmHg Ao V2 VTI 48.0 cm LAURIE(V,A) 1.2 cm\S\2 LAURIE(V,D) 1.2 cm\S\2 AI max erinn 359.5 cm/sec AI max PG 51.7 mmHg AI dec slope 405.7 cm/sec\S\2 AI P1/2t 259.6 msec LV V1 max PG 2.6 mmHg LV V1 max 80.9 cm/sec MR max erinn 453.3 cm/sec MR max PG 82.2 mmHg SV(Ao) 682.3 ml SI(Ao) 293.3 ml/m\S\2 PA V2 max 96.5 cm/sec PA max PG 3.7 mmHg TR max erinn 333.9 cm/sec
[2016-06-08] MEDS: ROPINIROLE HCL 0.25 MG TAB PO SCH (20:56)
[2016-06-08] MEDS: TAMSULOSIN HCL 0.4 MG CAP PO SCH (20:56)
[2016-06-08] MEDS: PRAVASTATIN SOD 40 MG TAB PO SCH (20:57)
[2016-06-08] MEDS: INSULIN GLARGINE SOLOSTAR 100 UNITS/ML 3 ML PEN SQ SCH (21:00)
[2016-06-08] MEDS: HEPARIN SOD 5000 UNIT/0.5 ML CARP SQ SCH (21:00)
[2016-06-09] VITALS (9 sets, daily range): BP systolic 111–122; BP diastolic 54–68; PULSE 71–83; TEMP 36.3–36.8; O2SAT 90–98
[2016-06-09 05:58] LABS: HEMATOCRIT 30.8 % (42-52); MEAN CELL VOLUME 94.2 fL (80-100); MEAN CORPUSCULAR HEMOGLOBIN 27.2 pg (25-34); MEAN CORPUSCULAR HGB CONC 28.9 g/dl (32-36); MEAN PLATELET VOLUME 10.7 fL (7.4-10.4); PLATELET COUNT 143 K/uL (130-400); RED BLOOD COUNT 3.27 M/uL (4.7-6.1); WHITE BLOOD COUNT 5.66 K/uL (4.8-10.8)
[2016-06-09 06:14] LABS: BUN/CREATININE RATIO 34.4 (10-20); CALCIUM 8.9 mg/dl (8.5-10.1); CREATININE 1.4 mg/dl (0.60-1.40); POTASSIUM 4.2 mmol/L (3.5-5.1)
[2016-06-09 06:15] LABS: BASO % 0.7 %; BASO ABS # 0.04 K/uL (0-0.2); COMPLETE YES; EOS % 1.8 %; HYPOCHROMIA PRESENT; IG% 0.2 %; LARGE PLATELETS 2+; LYMPH % 17.8 %; LYMPH ABS # 1.01 K/uL (1.2-3.4); MONO % 15.9 %; NEUT % 63.6 %
[2016-06-09] MEDS: INSULIN ASPART 100 UNITS/ML 3 ML PEN SC SCH ×4 (06:30→21:01)
[2016-06-09] MEDS: TIOTROPIUM BROMIDE 5 PUFF/90 MCG INH INH SCH (07:58)
[2016-06-09] MEDS: PrednisoLONE ACET 1% OP SUSP 5 ML BTL OPL SCH (07:58)
[2016-06-09] MEDS: METOLAZONE 5 MG TAB PO SCH (08:00)
[2016-06-09] MEDS: LOSARTAN POTASSIUM 25 MG TAB PO SCH (08:00)
[2016-06-09] MEDS: PANTOprazole SOD 40 MG TAB PO SCH (08:00)
[2016-06-09] MEDS: ASPIRIN 81 MG ECTAB PO SCH (08:02)
[2016-06-09] MEDS: ISOSORBIDE MONONITRATE 30 MG TABCR PO SCH (08:02)
[2016-06-09] MEDS: KETOCONAZOLE 2% CR 15 GM TUBE EXT SCH ×2 (08:03→20:55)
[2016-06-09] MEDS: CARVEDILOL 12.5 MG TAB PO SCH ×2 (08:03→20:55)
[2016-06-09] MEDS: HEPARIN SOD 5000 UNIT/0.5 ML CARP SQ SCH ×2 (08:06→21:03)
[2016-06-09] MEDS ORDERED: FUROSEMIDE INJ 80 MG in SYRINGE 0 ML IV SCH (09:00)
[2016-06-09] MEDS: BISACODYL 5 MG TABEC PO SCH (09:17)
[2016-06-09] MEDS: FERROUS SULFATE 325 MG TAB PO SCH ×2 (09:17→17:45)
[2016-06-09] MEDS: DOCUSATE SODIUM 100 MG CAP PO SCH ×2 (09:17→20:55)
--- NOTE | 2016-06-09 11:01 | Hospitalist Progress Note ---
Hospitalist Progress Note Date of Service Jun 09, 2016. (Dafne Allred PA-C) Subjective Pt evaluation today including: conversation w/ patient, conversation w/ family , physical exam, chart review, lab review, conversation w/ finance consultant, review of inpatient medication list Patient thinks that his breathing is much improved today. He does complain that he had a terrible night sleep. The bed was uncomfortable. He was woken up several times. He also had to urinate many times during the night. He very much wants to be discharged today. He denies any chest pain or pressure. He has not yet had a bowel movement. He denies any heart palpitations. Additional Comments: 6 system review negative. Please see pertinent positives in the history of present illness section. (Dafne Allred PA-C) Objective Vital Signs Date Time Temp Pulse Resp B/P Pulse Ox O2 Delivery O2 Flow Rate FiO2 06/09/16 08:00 92 Nasal Cannula 2.0 06/09/16 04:31 36.4 82 20 115/65 94 CPAP 06/09/16 04:17 CPAP 06/09/16 00:57 CPAP 06/08/16 23:57 36.3 77 18 124/72 96 CPAP 06/08/16 21:33 84 93 2.0 06/08/16 20:10 Nasal Cannula 2.0 06/08/16 19:42 36.4 80 20 110/68 96 Nasal Cannula 2.5 06/08/16 16:10 Nasal Cannula 2.0 06/08/16 15:44 36.3 83 16 124/65 97 Nasal Cannula 2.5 06/08/16 11:55 36.6 85 16 118/58 95 2.0 (Dafne Allred PA-C) Physical Exam General Appearance: no apparent distress ENT: + pertinent finding (oral mucosa dry. No exudate noted.) Neck: no JVD Respiratory/Chest: + pertinent finding (mildly decreased breath sounds at the bases bilaterally. No rales auscultated. No wheezing or rhonchi.) Cardiovascular: regular rate, rhythm, no murmur, + pertinent finding Abdomen: normal bowel sounds, non tender, soft Extremities: + pertinent finding (pedal edema in the lower extremities improved from yesterday. Trace pitting edema still present in the left lower extremity.) Neurologic/Psychiatric: no motor/sensory deficits, oriented x 3 Skin: warm/dry (Dafne Allred, TRENA) Laboratory Results 06/09/16 05:23 Red Blood Count 3.27, Mean Corpuscular Volume 94.2, Mean Corpuscular Hemoglobin 27.2, Mean Corpuscular Hemoglobin Concent 28.9, Mean Platelet Volume 10.7, Neutrophils (%) (Auto) 63.6, Lymphocytes (%) (Auto) 17.8, Monocytes (%) (Auto) 15.9, Eosinophils (%) (Auto) 1.8, Basophils (%) (Auto) 0.7, Neutrophils # (Auto ) 3.60, Lymphocytes # (Auto) 1.01, Monocytes # (Auto) 0.90, Eosinophils # (Auto ) 0.10, Basophils # (Auto) 0.04 06/09/16 05:23 Test 06/09/16 05:23 06/09/16 08:08 White Blood Count 5.66 K/uL (4.8-10.8) Red Blood Count 3.27 M/uL (4.7-6.1) Hemoglobin 8.9 g/dL (14.0-18.0) Hematocrit 30.8 % (42-52) Mean Corpuscular Volume 94.2 fL (80-100) Mean Corpuscular Hemoglobin 27.2 pg (25-34) Mean Corpuscular Hemoglobin Concent 28.9 g/dl (32-36) Platelet Count 143 K/uL (130-400) Mean Platelet Volume 10.7 fL (7.4-10.4) Neutrophils (%) (Auto) 63.6 % Lymphocytes (%) (Auto) 17.8 % Monocytes (%) (Auto) 15.9 % Eosinophils (%) (Auto) 1.8 % Basophils (%) (Auto) 0.7 % Neutrophils # (Auto) 3.60 K/uL (1.4-6.5) Lymphocytes # (Auto) 1.01 K/uL (1.2-3.4) Monocytes # (Auto) 0.90 K/uL (0.11-0.59) Eosinophils # (Auto) 0.10 K/uL (0-0.5) Basophils # (Auto) 0.04 K/uL (0-0.2) RDW Standard Deviation 52.9 fL (36.4-46.3) RDW Coefficient of Variation 15.4 % (11.5-14.5) Immature Granulocyte % (Auto) 0.2 % Immature Granulocyte # (Auto) 0.01 K/uL (0.00-0.02) Large Platelets 2+ Hypochromasia PRESENT Anion Gap 3.0 mmol/L (3-11) Est Creatinine Clear Calc Drug Dose 47.4 ml/min Estimated GFR () 52.4 Estimated GFR (Non- 45.2 BUN/Creatinine Ratio 34.4 (10-20) Calcium Level 8.9 mg/dl (8.5-10.1) Bedside Glucose 84 mg/dl (70-99) Last 24 Hours Test 06/08/16 11:21 06/08/16 17:09 06/08/16 20:09 06/09/16 05:23 Bedside Glucose 205 mg/dl 219 mg/dl 198 mg/dl White Blood Count 5.66 K/uL Red Blood Count 3.27 M/uL Hemoglobin 8.9 g/dL Hematocrit 30.8 % Mean Corpuscular Volume 94.2 fL Mean Corpuscular Hemoglobin 27.2 pg Mean Corpuscular Hemoglobin Concent 28.9 g/dl Platelet Count 143 K/uL Mean Platelet Volume 10.7 fL Neutrophils (%) (Auto) 63.6 % Lymphocytes (%) (Auto) 17.8 % Monocytes (%) (Auto) 15.9 % Eosinophils (%) (Auto) 1.8 % Basophils (%) (Auto) 0.7 % Neutrophils # (Auto) 3.60 K/uL Lymphocytes # (Auto) 1.01 K/uL Monocytes # (Auto) 0.90 K/uL Eosinophils # (Auto) 0.10 K/uL Basophils # (Auto) 0.04 K/uL RDW Standard Deviation 52.9 fL RDW Coefficient of Variation 15.4 % Immature Granulocyte % (Auto) 0.2 % Immature Granulocyte # (Auto) 0.01 K/uL Large Platelets 2+ Hypochromasia PRESENT Sodium Level 142 mmol/L Potassium Level 4.2 mmol/L Chloride Level 102 mmol/L Carbon Dioxide Level 37 mmol/L Anion Gap 3.0 mmol/L Blood Urea Nitrogen 48 mg/dl Creatinine 1.40 mg/dl Est Creatinine Clear Calc Drug Dose 47.4 ml/min Estimated GFR () 52.4 Estimated GFR (Non- 45.2 BUN/Creatinine Ratio 34.4 Random Glucose 75 mg/dl Calcium Level 8.9 mg/dl Test 06/09/16 07:43 06/09/16 08:08 Bedside Glucose 58 mg/dl 84 mg/dl (Dafne Allred PA-C) Assessment and Plan 85-year-old male presents emergency department with a few weeks of dyspnea on exertion Acute on chronic systolic/diastolic heart failure/acute respiratory failure with hypoxia -Echo reviewed. Diastolic dysfunction III. EF reduced from a previous echo to 25-30%. Inferior wall and septum severely hypokinetic -Patient was noncompliant with Lasix at home. His home dose is supposed to be 40 mg twice daily. He admits to skipping doses altogether. It caused him to urinate too much. -Currently patient is on Lasix 80 mg IV BID. Only diuresed 700 mL's. -Discussed with cardiology, Begin Lasix drip Elevated troponin-probably secondary to HF. No anginal sx History of coronary artery disease, CABG 2 -Continue aspirin 81 mg daily, Imdur ER 30 mg daily, carvedilol 12.5 mg BID, pravastatin 40 mg daily and losartan 12.5 mg daily Anemia-normocytic normochromic. Slight decrease in Hgb 8.9 -Vitamin B-12 and folate levels within normal limits -TIBC and ferritin also within normal limits, however ferritin is on the low side -Begin FeSO4 325 mg BID -Patient apparently gets iron transfusions as an outpt -Patient had a normal colonoscopy in 2012 -Follow up fecal occult blood Chronic kidney disease stage III-stable Diabetes mellitus type 2-got hypoglycemic this am. Didn't eat much dinner last night. Usually has breakfast at 6 AM -Decrease Lantus to 45 units at night -Patient is not getting his Humalog, which I agree with -Insulin sliding scale -Resume Lantus 55 units at night upon DC DVT prophylaxis -Heparin 5000 u subQ BID -TEDS, SCDs CODE STATUS -LEVEL I FULL CODE (Dafne Allred PA-C) Attending Attestation: Pt seen/examined, chart reviewed, care plan d/w LUIS M Allred. I agree w/ the oates components of her documentation. Pt feels better w/ less dyspnea. Still w/ o2 requirement. No bowel movement yet. VSS no fever still w minimal diuresis to date gen - dyspneic but less than yesterday neck - due to neck size unable to assess JVD heart - RRR, s1, s2, 2/6 systolic murmur RUSB lungs - crackles bases, end-exp wheeze - no change from prior abd - distended, BS+, liver edge not palpable ext - edema present, 2+ on left, trace on right labs - Cr 1.4 A/P: 1. acute/chronic systolic/diastolic CHF - due to med/diet noncompliance. Cont lasix diuresis but change to lasix drip 10mg/hr due to poor diuresis to date. Consider BB, ARB, metazolone. 2. anemia - ferritin level low-normal. Suspect iron deficiency. Start supplementation. 3. T2DM - cont basal-bolus insulin. Had hypoglycemia overnight - agree w/ reduction in lantus dosing. 4. CKD stage 3 - daily BMP. 5. ATILIO - CPAP. 6. constipation - bowel regimen. 7. type 2 IN / myocardial demand ischemia - 2nd to #1 above. PT, OT while here Lobo Heard MD (Lobo Heard MD)
[2016-06-09] MEDS ORDERED: FUROSEMIDE INJ 100 MG in DEXTROSE 5% 100ML 90 ML IV PRN (11:45)
[2016-06-09] MEDS ORDERED: NURSING VERBAL MED ORDER ONE (17:45)
[2016-06-09] MEDS: PRAVASTATIN SOD 40 MG TAB PO SCH (20:55)
[2016-06-09] MEDS: ROPINIROLE HCL 0.25 MG TAB PO SCH (20:55)
[2016-06-09] MEDS: TAMSULOSIN HCL 0.4 MG CAP PO SCH (20:55)
[2016-06-09] MEDS ORDERED: INSULIN GLARGINE SOLOSTAR 100 UNITS/ML 3 ML PEN SQ SCH (21:00)
[2016-06-10] VITALS (8 sets, daily range): BP systolic 103–127; BP diastolic 52–68; PULSE 77–90; TEMP 36.4–36.8; O2SAT 90–98
[2016-06-10 06:12] LABS: BUN/CREATININE RATIO 31.9 (10-20); CALCIUM 8.9 mg/dl (8.5-10.1); CREATININE 1.6 mg/dl (0.60-1.40); MAGNESIUM 2.3 mg/dl (1.8-2.4)
[2016-06-10] MEDS: ASPIRIN 81 MG ECTAB PO SCH (07:51)
[2016-06-10] MEDS: DOCUSATE SODIUM 100 MG CAP PO SCH ×2 (07:52→20:36)
[2016-06-10] MEDS: CARVEDILOL 12.5 MG TAB PO SCH ×2 (07:52→20:36)
[2016-06-10] MEDS: PANTOprazole SOD 40 MG TAB PO SCH (07:52)
[2016-06-10] MEDS: LOSARTAN POTASSIUM 25 MG TAB PO SCH (07:53)
[2016-06-10] MEDS: METOLAZONE 5 MG TAB PO SCH (07:53)
[2016-06-10] MEDS: FERROUS SULFATE 325 MG TAB PO SCH ×2 (07:53→17:55)
[2016-06-10] MEDS: BISACODYL 5 MG TABEC PO SCH (07:54)
[2016-06-10] MEDS: PrednisoLONE ACET 1% OP SUSP 5 ML BTL OPL SCH (07:54)
[2016-06-10] MEDS: ISOSORBIDE MONONITRATE 30 MG TABCR PO SCH (07:54)
[2016-06-10] MEDS: TIOTROPIUM BROMIDE 5 PUFF/90 MCG INH INH SCH (07:57)
[2016-06-10] MEDS: KETOCONAZOLE 2% CR 15 GM TUBE EXT SCH ×2 (07:58→20:37)
[2016-06-10] MEDS: HEPARIN SOD 5000 UNIT/0.5 ML CARP SQ SCH ×2 (08:10→20:30)
[2016-06-10] MEDS ORDERED: FUROSEMIDE INJ 40 MG in SYRINGE 0 ML IV STA (08:12)
[2016-06-10] MEDS: INSULIN ASPART 100 UNITS/ML 3 ML PEN SC SCH ×4 (08:35→20:29)
[2016-06-10] MEDS ORDERED: FUROSEMIDE INJ 100 MG in DEXTROSE 5% 100ML 90 ML IV SCH (10:15)
--- NOTE | 2016-06-10 10:16 | Hospitalist Progress Note ---
Hospitalist Progress Note Date of Service Jun 10, 2016. (Dafne Allred PA-C) Subjective Pt evaluation today including: conversation w/ patient, conversation w/ family , physical exam, chart review, lab review, review of inpatient medication list Pt reports breathing has much improved. Beginning slightly winded with physical exertion like walking in the hallway. Denies any chest pain or shortness of breath. No fever or chills. Denies any cough. Admits to some burning coming from the catheter. Additional Comments: 6 system review negative. Please see pertinent positives in the history of present illness section. (Dafne Allred PA-C) Objective Vital Signs Date Time Temp Pulse Resp B/P Pulse Ox O2 Delivery O2 Flow Rate FiO2 06/10/16 07:30 36.7 84 20 103/52 93 Nasal Cannula 3.0 06/10/16 04:00 36.6 80 20 117/64 97 CPAP 06/10/16 04:00 CPAP 06/10/16 00:22 CPAP 06/10/16 00:12 36.6 77 18 127/62 98 CPAP 06/09/16 21:29 76 94 2.0 06/09/16 20:12 Nasal Cannula 2.0 06/09/16 19:35 36.6 80 18 122/56 97 3.0 06/09/16 16:52 71 114/68 06/09/16 16:00 94 Nasal Cannula 2.0 06/09/16 15:11 36.8 83 20 114/54 98 06/09/16 12:09 36.3 81 20 111/65 90 2.0 06/09/16 12:00 93 Nasal Cannula 2.0 (Dafne Allred PA-C) Physical Exam General Appearance: no apparent distress Eyes: EOMI ENT: + pertinent finding (oral mucosa slightly dry) Neck: no JVD Respiratory/Chest: + pertinent finding (mild Rales at the bases bilaterally. No wheezing. Mild tachypnea noted. Overall improved from yesterday.) Cardiovascular: regular rate, rhythm Abdomen: normal bowel sounds, non tender, soft Extremities: + pertinent finding (trace pitting edema in the left lower extremity. No significant edema noted in the right lower extremity.) Neurologic/Psychiatric: no motor/sensory deficits, oriented x 3 Skin: warm/dry (Dafne Allred PA-C) Laboratory Results 06/10/16 05:18 Test 06/10/16 05:18 06/10/16 07:50 Anion Gap 2.0 mmol/L (3-11) Est Creatinine Clear Calc Drug Dose 41.5 ml/min Estimated GFR () 44.6 Estimated GFR (Non- 38.4 BUN/Creatinine Ratio 31.9 (10-20) Calcium Level 8.9 mg/dl (8.5-10.1) Magnesium Level 2.3 mg/dl (1.8-2.4) Bedside Glucose 86 mg/dl (70-99) Last 24 Hours Test 06/09/16 11:23 06/09/16 16:27 06/09/16 20:12 06/10/16 05:18 Bedside Glucose 198 mg/dl 259 mg/dl 298 mg/dl Sodium Level 140 mmol/L Potassium Level 4.0 mmol/L Chloride Level 98 mmol/L Carbon Dioxide Level 40 mmol/L Anion Gap 2.0 mmol/L Blood Urea Nitrogen 51 mg/dl Creatinine 1.60 mg/dl Est Creatinine Clear Calc Drug Dose 41.5 ml/min Estimated GFR () 44.6 Estimated GFR (Non- 38.4 BUN/Creatinine Ratio 31.9 Random Glucose 95 mg/dl Calcium Level 8.9 mg/dl Magnesium Level 2.3 mg/dl Test 06/10/16 07:50 Bedside Glucose 86 mg/dl (Dafne Allred PA-C) Assessment and Plan 85-year-old male presents emergency department with a few weeks of dyspnea on exertion Acute on chronic systolic/diastolic heart failure/acute respiratory failure with hypoxia -Echo reviewed. Diastolic dysfunction III. EF reduced from a previous echo to 25-30%. Inferior wall and septum severely hypokinetic -Patient was noncompliant with Lasix at home. His home dose is supposed to be 40 mg twice daily. He admits to skipping doses altogether. It caused him to urinate too much. -Lasix 80 mg IV BID changed to a Lasix drip yesterday. It was discontinued last night due to high urine output -Resume Lasix drip at decreased rate 5 mg per hour--> titrated up 2 mg as need for urine output approx 55 ml per hr Elevated troponin-probably secondary to HF. No anginal sx History of coronary artery disease, CABG 2 -Continue aspirin 81 mg daily, Imdur ER 30 mg daily, carvedilol 12.5 mg BID, pravastatin 40 mg daily and losartan 12.5 mg daily Anemia-normocytic normochromic. Hgb stable -follows with heme/onc and occasionally gets Fe infusions. Hasn't had one in several weeks -Continue FeS04 325 mg po BID with stool softener -follow H&H daily -f/u with heme/onc next week already scheduled-->may need Fe infusion at that time Chronic kidney disease stage III-mild bump in Cr to 1.6. Overall handling diuresis well -Follow PRP Diabetes mellitus type 2-no further hypoglycemia -resume home dose of Lantus 55 u HS -Continue Insulin sliding scale -Resume humalog with meals upon d/c DVT prophylaxis -Heparin 5000 u subQ BID -TEDS, SCDs CODE STATUS -LEVEL I FULL CODE (Dafne Allred, PAChadC) Attending Attestation: Pt seen/examined, chart reviewed, care plan d/w LUIS M Allred. I agree w/ the oates components of her documentation. Pt again feels better today. Less dyspnea. PT notes suggest his O2 sats dropped to the 80s during ambulation. He is anxious to return home. Denies chest pain. VSS no fever neg 1.8 liters last 24 hrs gen - mildly dyspneic but no increased work of breathing neck - due to neck size difficult to determine JVD but appears he does have JVD heart - RRR, s1, s2, 2/6 systolic murmur RUSB lungs - crackles bases - about 1/[address] up back, wheezes improved/less abd - distended but improved in comparison to yesterday, BS+, liver edge not palpable ext - edema trace on right, 1-2+ on left skin - stasis changes b/l legs labs - Cr 1.6 A/P: 1. acute/chronic systolic/diastolic CHF - due to med/diet noncompliance. Cont lasix diuresis with lasix drip Drip was stopped overnight due to brisk diuresis Would resume but cut rate to 5mg/hr Consider BB, ARB, metazolone. 2. anemia - ferritin level low-normal c/w Fe deficiency apparently gets Fe infusions by heme/onc Will give oral supplementation while hospitalized 3. T2DM - cont basal-bolus insulin. Hypoglycemia resolved so resume outpatient regimen/dosing. 4. CKD stage 3 - daily BMP. Cr slightly up today - follow. 5. ATILIO - CPAP. 6. constipation - bowel regimen. 7. type 2 [place] / myocardial demand ischemia - 2nd to #1 above. PT, OT evals appreciated -- too early to tell about home vs rehab left message for on home answering machine on 06/10/16 Lobo Heard MD (Lobo Heard MD)
[2016-06-10 15:19] LABS: URINE APPEARANCE CLEAR (CLEAR); URINE BILIRUBIN NEG (NEG); URINE COLOR YELLOW; URINE EPITHELIAL CELL AUTO 0-5 /lpf (0-5); URINE NITRITE NEG (NEG); UROBILINOGEN NEG (NEG)
[2016-06-10 15:25] LABS: MANUAL MICROSCOPIC REQUIRED? NO; REVIEW REQ? NO
[2016-06-10] MEDS ORDERED: PHENAZOPYRIDINE HCL 100 MG TAB PO ONE (17:30)
[2016-06-10] MEDS: INSULIN GLARGINE SOLOSTAR 100 UNITS/ML 3 ML PEN SQ SCH (20:30)
[2016-06-10] MEDS: TAMSULOSIN HCL 0.4 MG CAP PO SCH (20:36)
[2016-06-10] MEDS: PRAVASTATIN SOD 40 MG TAB PO SCH (20:36)
[2016-06-10] MEDS: ROPINIROLE HCL 0.25 MG TAB PO SCH (20:37)
[2016-06-10] MEDS: FUROSEMIDE INJ 100 MG in DEXTROSE 5% 100ML 90 ML IV PRN (23:32)
[2016-06-11] VITALS (13 sets, daily range): BP systolic 95–134; BP diastolic 51–69; PULSE 74–83; TEMP 36.3–37.1; O2SAT 80–96
[2016-06-11] MEDS: INSULIN ASPART 100 UNITS/ML 3 ML PEN SC SCH ×4 (06:30→21:08)
[2016-06-11] MEDS: KETOCONAZOLE 2% CR 15 GM TUBE EXT SCH ×2 (07:46→21:00)
[2016-06-11] MEDS: TIOTROPIUM BROMIDE 5 PUFF/90 MCG INH INH SCH (07:47)
[2016-06-11] MEDS: PrednisoLONE ACET 1% OP SUSP 5 ML BTL OPL SCH (07:48)
[2016-06-11] MEDS: PANTOprazole SOD 40 MG TAB PO SCH (07:49)
[2016-06-11] MEDS: CARVEDILOL 12.5 MG TAB PO SCH ×2 (07:49→21:00)
[2016-06-11] MEDS: LOSARTAN POTASSIUM 25 MG TAB PO SCH (07:49)
[2016-06-11] MEDS: METOLAZONE 5 MG TAB PO SCH (07:49)
[2016-06-11] MEDS: DOCUSATE SODIUM 100 MG CAP PO SCH ×2 (07:50→20:59)
[2016-06-11] MEDS: FERROUS SULFATE 325 MG TAB PO SCH ×2 (07:50→17:15)
[2016-06-11] MEDS: ISOSORBIDE MONONITRATE 30 MG TABCR PO SCH (07:50)
[2016-06-11 07:51] LABS: BUN/CREATININE RATIO 33.1 (10-20); CALCIUM 9.1 mg/dl (8.5-10.1); CREATININE 1.5 mg/dl (0.60-1.40); MAGNESIUM 2.1 mg/dl (1.8-2.4); POTASSIUM 3.5 mmol/L (3.5-5.1)
[2016-06-11] MEDS: ASPIRIN 81 MG ECTAB PO SCH (07:51)
[2016-06-11] MEDS: HEPARIN SOD 5000 UNIT/0.5 ML CARP SQ SCH ×2 (07:52→21:06)
[2016-06-11] MEDS: BISACODYL 5 MG TABEC PO SCH (07:52)
--- NOTE | 2016-06-11 09:45 | CARDIOLOGY PROGRESS NOTE ---
DATE: 06/11/2016 SUBJECTIVE: Mr. Rivera is resting in the bedside chair without complaints of chest pain or dyspnea. He had a restless night sleep. OBJECTIVE: VITAL SIGNS: Blood pressure is 116/64 with a regular pulse of 77. Respiratory rate is 18. The patient is afebrile at 36.9 degrees Celsius. Saturations are 90% on 1.5 liters nasal cannula. NECK: Supple with full carotid upstrokes. No obvious bruits. Jugular venous pressure is flat at 90 degrees. No thyromegaly. CARDIOVASCULAR: Reveals a regular rhythm with distant heart sounds. A 2/6 basal systolic ejection murmur is noted. LUNGS: Clear without rales, rhonchi, or wheezes. ABDOMEN: Benign without bruits. EXTREMITIES: Reveal intact radial artery pulses bilaterally. 1+ pretibial edema is noted. Hypopigmentation also noted. LABORATORY DATA: Electrolytes note a sodium of 141, potassium 3.5, chloride 97, bicarbonate 42, BUN 50, creatinine 1.5, and glucose 66. medical scientist notes sinus rhythm with occasional PACs and PVCs. IMPRESSION AND PLAN: 1. 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 He has noticed a significant diuresis. We have had a long discussion regarding salt and fluid restricted diet. We have also discussed the importance of compliance with his diuretic regimen. Daily weights and sliding scale diuretics also explained in detail. The patient's son is at the bedside and voices an understanding. 2. Ischemic cardiomyopathy -- ejection fraction 25%-30%. Continue carvedilol and losartan. 3. Coronary artery disease -- echocardiogram notes an inferior wall motion abnormality. 4. Mild aortic stenosis -- with mild aortic insufficiency. 5. Hypertension -- controlled. 6. Hypercholesterolemia -- continue pravastatin. 7. Status post coronary artery bypass graft x2 -- 1996. 8. Chronic renal failure. 9. Diabetes mellitus. 10. Obstructive sleep apnea.
--- NOTE | 2016-06-11 10:54 | Hospitalist Progress Note ---
Hospitalist Progress Note Date of Service Jun 11, 2016. (Winter Lazaro ., PA-C) Subjective Pt evaluation today including: conversation w/ patient, conversation w/ family (Son ), physical exam, chart review, lab review, review of studies, review of inpatient medication list Voiding: vuong catheter in place (draining yellow/clear urine ) Patient states he is feeling well. He is eating and drinking OK. He worked with PT this AM without significant difficulty. +SOB- improving Patient denies any fever, chills, sweats, lightheadedness, dizziness, vision changes, CP, palpitations, edema, wheezing, cough, abdominal pain, nausea, vomiting, diarrhea, urinary symptoms, melena, numbness/tingling, weakness, muscle/joint pain, anxiety/depression, active bleeding, or new skin discoloration/changes. (Winter Lazaro ., PA-C) Medications Current Inpatient Medications Medications (Trade) Dose Ordered Sig/Dafne Route Start Time Stop Time Status Last Admin Dose Admin Acetaminophen (Tylenol Tab) 650 mg Q4H PRN PO 06/07/16 15:15 07/07/16 15:14 Al Hydrox/Mg Hydrox/Simethicone (Maalox Max Susp) 15 ml Q4H PRN PO 06/07/16 15:15 07/07/16 15:14 Magnesium Hydroxide (Milk Of Magnesia Susp) 30 ml Q6H PRN PO 06/07/16 15:15 07/07/16 15:14 Polyethylene (Miralax Powder Packet) 17 gm DAILY PRN PO 06/07/16 16:00 07/07/16 15:59 Ondansetron HCl (Zofran Inj) 4 mg Q6H PRN IV 06/07/16 15:15 07/07/16 15:14 Aspirin (Ecotrin Tab) 81 mg QAM PO 06/08/16 08:00 07/08/16 08:59 06/11/16 07:51 81 MG Carvedilol (Coreg Tab) 12.5 mg BID PO 06/07/16 20:00 07/07/16 20:59 06/11/16 07:49 12.5 MG Ergocalciferol (Vitamin D Cap) 50,000 interunit Th@0900 PO 06/14/16 09:00 07/14/16 08:59 Fluticasone Propionate (Flonase Nasal [place]) 2 sprays DAILY PRN ELEUTERIO 06/07/16 15:15 07/07/16 15:14 Acetaminophen/ Hydrocodone Bitart ([place] 5/325 Tab) 1 tab Q4H PRN PO 06/07/16 15:15 06/21/16 15:14 Albuterol/ Ipratropium (Duoneb) 3 ml Q6R PRN INH 06/07/16 15:15 07/07/16 15:14 Isosorbide Mononitrate (Imdur Ext Rel Tab) 30 mg QAM PO 06/08/16 08:00 07/08/16 08:59 06/11/16 07:50 30 MG Ketoconazole (Nizoral 2% Crm) 1 appln BID EXT 06/07/16 20:00 06/17/16 20:59 06/11/16 07:46 1 APPLN Losartan Potassium (coZAAR TAB) 12.5 mg QAM PO 06/08/16 08:00 07/08/16 08:59 06/11/16 07:49 12.5 MG Pravastatin Sodium (Pravachol Tab) 40 mg QPM PO 06/07/16 21:00 07/07/16 20:59 06/10/16 20:36 40 MG Prednisolone Acetate (Pred Forte 1% Oph Susp) 1 drops QAM OPL 06/08/16 08:00 07/08/16 08:59 06/11/16 07:48 1 DROPS Ropinirole HCl (Requip Tab) 0.25 mg HS PO 06/07/16 21:00 07/07/16 20:59 06/10/16 20:37 0.25 MG Tiotropium [place] (Spiriva Handihaler Inhaler) 1 puff DAILY INH 06/08/16 08:00 07/08/16 08:59 06/11/16 07:47 1 PUFF Tamsulosin HCl (Flomax Cap) 0.4 mg HS PO 06/07/16 21:00 07/07/16 20:59 06/10/16 20:36 0.4 MG Metolazone (Zaroxolyn Tab) 5 mg DAILY@0830 PO 06/08/16 08:30 07/08/16 08:29 06/11/16 07:49 5 MG Insulin Aspart (novoLOG ASPART) SLIDING SCALE If C... ACHS SC 06/07/16 21:00 07/07/16 20:59 06/10/16 20:29 3 UNITS Glucose (Glucose 40% Gel) UD PRN PO 06/07/16 16:15 07/07/16 16:14 Glucose (Glucose Chew Tab) 1 tabs UD PRN PO 06/07/16 16:15 07/07/16 16:14 Dextrose (Dextrose 50% 50ML Syringe) 50 ml UD PRN IV 06/07/16 16:15 07/07/16 16:14 Glucagon (Glucagon Inj) 1 mg UD PRN SQ 06/07/16 16:15 07/07/16 16:14 Pantoprazole Sodium (Protonix Tab) 40 mg QAM PO 06/08/16 08:00 07/08/16 08:59 06/11/16 07:49 40 MG Heparin Sodium (Porcine) (Heparin Sq 5000 Unit/0.5ml) 5,000 unit Q12 SQ 06/08/16 21:00 07/08/16 20:59 06/11/16 07:52 5,000 UNIT Ferrous Sulfate (Feosol Tab) 325 mg BIDM PO 06/09/16 09:00 07/09/16 08:59 06/11/16 07:50 325 MG Bisacodyl (Dulcolax Tab) 5 mg DAILY PO 06/09/16 09:00 07/09/16 08:59 06/11/16 07:52 5 MG Docusate Sodium (coLACE CAP) 100 mg BID PO 06/09/16 09:00 07/09/16 08:59 06/11/16 07:50 100 MG Insulin Glargine 55 unit 55 unit HS SQ 06/10/16 21:00 07/10/16 20:59 06/10/16 20:30 55 UNIT Furosemide/ Dextrose (Lasix Inj/D5 100ml) 100 ml @ 0 mls/hr Q0M PRN IV 06/10/16 23:30 07/10/16 23:29 06/10/16 23:32 5 MLS/HR (Winter Lazaro, PINAC) Objective Vital Signs Date Time Temp Pulse Resp B/P Pulse Ox O2 Delivery O2 Flow Rate FiO2 06/11/16 08:00 92 CPAP 1.5 06/11/16 07:05 36.9 77 18 116/64 90 CPAP 06/11/16 04:30 37.1 81 20 116/64 93 CPAP 1.5 06/11/16 04:00 94 CPAP 06/11/16 00:00 94 CPAP 06/10/16 23:06 36.4 90 18 120/68 90 BiPAP 06/10/16 21:40 CPAP 06/10/16 21:32 80 94 2.0 06/10/16 20:05 Nasal Cannula 1.5 06/10/16 19:28 36.8 90 18 121/66 95 2.0 06/10/16 16:00 Nasal Cannula 1.5 06/10/16 15:53 36.5 84 18 125/62 94 Room Air 06/10/16 12:00 Nasal Cannula 1.5 06/10/16 11:08 36.5 80 18 113/66 93 2.0 (Winter Lazaro, PA-C) Physical Exam General Appearance: no apparent distress, + obese Eyes: normal inspection, PERRL ENT: hearing grossly normal Neck: supple Respiratory/Chest: lungs clear, no respiratory distress, no accessory muscle use Cardiovascular: regular rate, rhythm, + systolic murmur Abdomen: normal bowel sounds, non tender, soft Extremities: no calf tenderness, + swelling (trace pitting edema noted to bilateral lower extremities ), + pertinent finding (chronic stasis dermatitis changes noted to bilateral lower extremities ) Neurologic/Psychiatric: alert, normal mood/affect, oriented x 3 Skin: normal color, warm/dry, no rash (Winter Lazaro ., PA-C) Laboratory Results Last 24 Hours Test 06/10/16 10:42 06/10/16 11:40 06/10/16 14:55 06/10/16 15:00 Stool Occult Blood NEGATIVE Bedside Glucose 187 mg/dl 236 mg/dl Urine Color YELLOW Urine Appearance CLEAR Urine pH 5.0 Urine Specific [place] 1.010 Urine Protein NEG Urine Glucose (UA) NEG Urine Ketones NEG Urine Occult Blood 2+ Urine Nitrite NEG Urine Bilirubin NEG Urine Urobilinogen NEG Urine Leukocyte Esterase SMALL Urine WBC (Auto) 1-5 /hpf Urine RBC (Auto) 10-30 /hpf Urine Hyaline Casts (Auto) 1-5 /lpf Urine Epithelial Cells (Auto) 0-5 /lpf Urine Bacteria (Auto) NEG Test 06/10/16 16:23 06/10/16 20:21 06/11/16 06:58 06/11/16 07:34 Bedside Glucose 225 mg/dl 239 mg/dl 66 mg/dl Sodium Level 141 mmol/L Potassium Level 3.5 mmol/L Chloride Level 97 mmol/L Carbon Dioxide Level 42 mmol/L Anion Gap 3.0 mmol/L Blood Urea Nitrogen 50 mg/dl Creatinine 1.50 mg/dl Est Creatinine Clear Calc Drug Dose 43.6 ml/min Estimated GFR () 48.2 Estimated GFR (Non- 41.6 BUN/Creatinine Ratio 33.1 Random Glucose 58 mg/dl Calcium Level 9.1 mg/dl Magnesium Level 2.1 mg/dl Test 06/11/16 07:59 Bedside Glucose 87 mg/dl (Winter Lazaro, PAChadC) Assessment and Plan 85-year-old male presents emergency department with a few weeks of dyspnea on exertion Acute on chronic systolic/diastolic heart failure/acute respiratory failure with hypoxia- IMPROVING: - Admit to tele for cardiac monitoring- reviewed- NSR w/ HR 70-80s - Echo reviewed. Diastolic dysfunction III. EF reduced from a previous echo to 25-30%. Inferior wall and septum severely hypokinetic - Discussed importance of compliance w/ Lasix home dosage - Lasix drip yesterday-- > rate 5 mg per hour--> titrated up 2 mg as need for urine output approx 55 ml per hr - Monitor I&Os/daily weights--> continues to have significant negative UO balance - O2 protocol, wean as tolerated- does NOT wear O2 supplement at home - Consult cardiology, appreciate recommendations Elevated troponin- peak at 0.869, ?probably secondary to HF History of coronary artery disease, CABG 2: Continue aspirin 81 mg daily, Imdur ER 30 mg daily, Carvedilol 12.5 mg BID, and Losartan 12.5 mg daily Hypercholesterolemia: Continue Pravastatin 40 mg daily Anemia-normocytic normochromic- STABLE: - Continue FeS04 325 mg po BID with stool softener - Follow H&H daily - Follows w/ heme/onc and occasionally gets Fe infusions- f/u with heme/onc next week already scheduled-->may need Fe infusion at that time Chronic kidney disease stage III- STABLE: Follow PRP T2DM: - Lantus 55 u HS - BSG ACHS w/ sliding insulin scale - Resume Humalog with meals upon d/c ATILIO: Continue CPAP use GI Prophylaxis: Maalox PRN, IV Zofran PRN, Colace and/or Milk of Mag PRN DVT prophylaxis: Heparin 5000 u subQ BID, TEDS, SCDs CODE STATUS: LEVEL I FULL CODE Dispo: - PT/OT recommendations- pt OK to resume home - Return to home once medically stable (Winter Lazaro ., PA-C) PA Physician Supervision Note: I interviewed and examined the patient. Discussed with Winter Lazaro PAC and agree with findings and plan as documented in the note. Any exceptions or clarifications are listed here: None My Rivera says he feels much better, he as some rales and is still diuresing on lasix gtt vitals stable acute systolic heart failure, will continue iv lasix until rise in Cr, look to change to po lasix in next day or so(keeping metolozone) continue cozaar, coreg and imdur supplemental oxygen and cpap at high diabetes on basal bolus with scale Documented By: Moshe Palmer (Moshe Palmer M.D.)
[2016-06-11] MEDS: FUROSEMIDE INJ 100 MG in DEXTROSE 5% 100ML 90 ML IV PRN (18:29)
[2016-06-11] MEDS: PRAVASTATIN SOD 40 MG TAB PO SCH (20:59)
[2016-06-11] MEDS: TAMSULOSIN HCL 0.4 MG CAP PO SCH (21:00)
[2016-06-11] MEDS: ROPINIROLE HCL 0.25 MG TAB PO SCH (21:00)
[2016-06-11] MEDS: INSULIN GLARGINE SOLOSTAR 100 UNITS/ML 3 ML PEN SQ SCH (21:07)
[2016-06-12] VITALS (13 sets, daily range): BP systolic 101–126; BP diastolic 50–70; PULSE 78–90; TEMP 36.6–37.4; O2SAT 90–97; Ht 177.8 cm; Wt 106.7 kg
[2016-06-12 06:16] LABS: BASO % 0.2 %; BASO ABS # 0.02 K/uL (0-0.2); HEMATOCRIT 30.5 % (42-52); IG% 0.4 %; LYMPH % 16.5 %; LYMPH ABS # 1.35 K/uL (1.2-3.4); MEAN CELL VOLUME 94.7 fL (80-100); MEAN CORPUSCULAR HEMOGLOBIN 27.6 pg (25-34); MEAN CORPUSCULAR HGB CONC 29.2 g/dl (32-36); MEAN PLATELET VOLUME 10.8 fL (7.4-10.4); MONO % 15.6 %; NEUT % 66.3 %; PLATELET COUNT 152 K/uL (130-400); RED BLOOD COUNT 3.22 M/uL (4.7-6.1); WHITE BLOOD COUNT 8.19 K/uL (4.8-10.8)
[2016-06-12 06:45] LABS: COMPLETE YES
[2016-06-12 06:58] LABS: BUN/CREATININE RATIO 32.2 (10-20); CALCIUM 8.9 mg/dl (8.5-10.1); CREATININE 1.5 mg/dl (0.60-1.40); POTASSIUM 3.4 mmol/L (3.5-5.1)
[2016-06-12] MEDS: ASPIRIN 81 MG ECTAB PO SCH (08:25)
[2016-06-12] MEDS: BISACODYL 5 MG TABEC PO SCH (08:25)
[2016-06-12] MEDS: METOLAZONE 5 MG TAB PO SCH (08:25)
[2016-06-12] MEDS: PANTOprazole SOD 40 MG TAB PO SCH (08:25)
[2016-06-12] MEDS: DOCUSATE SODIUM 100 MG CAP PO SCH ×2 (08:26→21:09)
[2016-06-12] MEDS: FERROUS SULFATE 325 MG TAB PO SCH ×2 (08:26→17:44)
[2016-06-12] MEDS: CARVEDILOL 12.5 MG TAB PO SCH ×2 (08:27→21:09)
[2016-06-12] MEDS: LOSARTAN POTASSIUM 25 MG TAB PO SCH (08:28)
[2016-06-12] MEDS: ISOSORBIDE MONONITRATE 30 MG TABCR PO SCH (08:28)
[2016-06-12] MEDS: TIOTROPIUM BROMIDE 5 PUFF/90 MCG INH INH SCH (08:32)
[2016-06-12] MEDS: PrednisoLONE ACET 1% OP SUSP 5 ML BTL OPL SCH (08:32)
[2016-06-12] MEDS: KETOCONAZOLE 2% CR 15 GM TUBE EXT SCH ×2 (08:33→21:00)
[2016-06-12] MEDS: INSULIN ASPART 100 UNITS/ML 3 ML PEN SC SCH ×4 (08:38→21:11)
[2016-06-12] MEDS: HEPARIN SOD 5000 UNIT/0.5 ML CARP SQ SCH ×2 (08:39→21:24)
[2016-06-12] MEDS ORDERED: POTASSIUM CHLORIDE 20 MEQ TABCR PO ONE (09:00)
--- NOTE | 2016-06-12 09:59 | CARDIOLOGY PROGRESS NOTE ---
DATE: 06/12/2016 DATE: 06/12/2016. SUBJECTIVE: Mr. Rivera is resting comfortably in bedside chair without complaints of chest pain or dyspnea. He is anxious for hospital discharge. OBJECTIVE: VITAL SIGNS: Blood pressure is 124/70 with a regular pulse of 86. Respiratory rate is 20. The patient is afebrile at 36.3 degrees Celsius. Saturation is 91% on 1.5 liters nasal cannula. NECK: Supple with full carotid upstrokes. No obvious bruits or transmitted murmurs. Jugular venous pressure is flat at 90 degrees. There is no thyromegaly. CARDIOVASCULAR EXAMINATION: Reveals a regular rhythm with distant heart sounds. A 2/6 basal systolic ejection murmur is noted. LUNGS: Clear without rales, rhonchi, or wheezes. ABDOMEN: Benign without bruits. EXTREMITIES: Reveal intact radial artery pulses bilaterally. 1+ pretibial edema is noted. Hypopigmentation changes again noted. LABORATORY DATA: CBC notes hemoglobin of 8.9, hematocrit 30.5, white count 8.1, platelet count 152,000. Electrolytes note a sodium of 139, potassium 3.4, chloride 93, bicarb 43, BUN 48, creatinine 1.5, glucose 117. classroom monitor notes sinus rhythm with occasional PACs and PVCs. IMPRESSION AND PLAN: 1. 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 Weight has stabilized over the last 2 days. He may have reached steady state. Again, discussed the importance of daily weights and sliding scale diuretics. 2. Ischemic cardiomyopathy -- ejection fraction of 25-30%. Continue with current medical regimen. 3. Coronary artery disease -- with an inferior wall motion abnormality on recent echocardiogram. 4. Mild aortic stenosis -- with mild aortic insufficiency. 5. Hypertension -- controlled. 6. Hypercholesterolemia -- continue pravastatin. 7. Status post coronary artery bypass graft x2 -- 1996. 8. Chronic renal failure. 9. Diabetes mellitus. 10. Obstructive sleep apnea.
--- NOTE | 2016-06-12 10:02 | Hospitalist Progress Note ---
Hospitalist Progress Note Date of Service Jun 12, 2016. (Winter Lazaro ., PA-C) Subjective Pt evaluation today including: conversation w/ patient, physical exam, chart review, lab review, review of studies, review of inpatient medication list Voiding: vuong catheter in place (draining clear/yellow urine ) Patient states he is feeling well. He is eating and drinking OK. +SOB, but improving. +bilateral heel pain- patient attributes it to lying in bed w/ pressure on heels all day. Patient denies any fever, chills, sweats, lightheadedness, dizziness, vision changes, CP, palpitations, edema, wheezing, cough, abdominal pain, nausea, vomiting, diarrhea, urinary symptoms, melena, numbness/tingling, weakness, muscle/joint pain, anxiety/depression, active bleeding, or new skin discoloration/changes. (Winter Lazaro ., PA-C) Medications Current Inpatient Medications Medications (Trade) Dose Ordered Sig/[place] Route Start Time Stop Time Status Last Admin Dose Admin Acetaminophen (Tylenol Tab) 650 mg Q4H PRN PO 06/07/16 15:15 07/07/16 15:14 Al Hydrox/Mg Hydrox/Simethicone (Maalox Max Susp) 15 ml Q4H PRN PO 06/07/16 15:15 07/07/16 15:14 Magnesium Hydroxide (Milk Of Magnesia Susp) 30 ml Q6H PRN PO 06/07/16 15:15 07/07/16 15:14 Polyethylene (Miralax Powder Packet) 17 gm DAILY PRN PO 06/07/16 16:00 07/07/16 15:59 Ondansetron HCl (Zofran Inj) 4 mg Q6H PRN IV 06/07/16 15:15 07/07/16 15:14 Aspirin (Ecotrin Tab) 81 mg QAM PO 06/08/16 08:00 07/08/16 08:59 06/12/16 08:25 81 MG Carvedilol (Coreg Tab) 12.5 mg BID PO 06/07/16 20:00 07/07/16 20:59 06/12/16 08:27 12.5 MG Ergocalciferol (Vitamin D Cap) 50,000 interunit Th@0900 PO 06/14/16 09:00 07/14/16 08:59 Fluticasone Propionate (Flonase Nasal [place]) 2 sprays DAILY PRN ELEUTERIO 06/07/16 15:15 07/07/16 15:14 Acetaminophen/ Hydrocodone Bitart ([place] 5/325 Tab) 1 tab Q4H PRN PO 06/07/16 15:15 06/21/16 15:14 Albuterol/ Ipratropium (Duoneb) 3 ml Q6R PRN INH 06/07/16 15:15 07/07/16 15:14 Isosorbide Mononitrate (Imdur Ext Rel Tab) 30 mg QAM PO 06/08/16 08:00 07/08/16 08:59 06/12/16 08:28 30 MG Ketoconazole (Nizoral 2% Crm) 1 appln BID EXT 06/07/16 20:00 06/17/16 20:59 06/12/16 08:33 1 APPLN Losartan Potassium (coZAAR TAB) 12.5 mg QAM PO 06/08/16 08:00 07/08/16 08:59 06/12/16 08:28 12.5 MG Pravastatin Sodium (Pravachol Tab) 40 mg QPM PO 06/07/16 21:00 07/07/16 20:59 06/11/16 20:59 40 MG Prednisolone Acetate (Pred Forte 1% Oph Susp) 1 drops QAM OPL 06/08/16 08:00 07/08/16 08:59 06/12/16 08:32 1 DROPS Ropinirole HCl (Requip Tab) 0.25 mg HS PO 06/07/16 21:00 07/07/16 20:59 06/11/16 21:00 0.25 MG Tiotropium [place] (Spiriva Handihaler Inhaler) 1 puff DAILY INH 06/08/16 08:00 07/08/16 08:59 06/12/16 08:32 1 PUFF Tamsulosin HCl (Flomax Cap) 0.4 mg HS PO 06/07/16 21:00 07/07/16 20:59 06/11/16 21:00 0.4 MG Metolazone (Zaroxolyn Tab) 5 mg DAILY@0830 PO 06/08/16 08:30 07/08/16 08:29 06/12/16 08:25 5 MG Insulin Aspart (novoLOG ASPART) SLIDING SCALE If C... ACHS SC 06/07/16 21:00 07/07/16 20:59 06/12/16 08:38 5 UNITS Glucose (Glucose 40% Gel) UD PRN PO 06/07/16 16:15 07/07/16 16:14 Glucose (Glucose Chew Tab) 1 tabs UD PRN PO 06/07/16 16:15 07/07/16 16:14 Dextrose (Dextrose 50% 50ML Syringe) 50 ml UD PRN IV 06/07/16 16:15 07/07/16 16:14 Glucagon (Glucagon Inj) 1 mg UD PRN SQ 06/07/16 16:15 07/07/16 16:14 Pantoprazole Sodium (Protonix Tab) 40 mg QAM PO 06/08/16 08:00 07/08/16 08:59 06/12/16 08:25 40 MG Heparin Sodium (Porcine) (Heparin Sq 5000 Unit/0.5ml) 5,000 unit Q12 SQ 06/08/16 21:00 07/08/16 20:59 06/12/16 08:39 5,000 UNIT Ferrous Sulfate (Feosol Tab) 325 mg BIDM PO 06/09/16 09:00 07/09/16 08:59 06/12/16 08:26 325 MG Bisacodyl (Dulcolax Tab) 5 mg DAILY PO 06/09/16 09:00 07/09/16 08:59 06/12/16 08:25 5 MG Docusate Sodium (coLACE CAP) 100 mg BID PO 06/09/16 09:00 07/09/16 08:59 06/12/16 08:26 100 MG Insulin Glargine 55 unit 55 unit HS SQ 06/10/16 21:00 07/10/16 20:59 06/11/16 21:07 55 UNIT Furosemide/ Dextrose (Lasix Inj/D5 100ml) 100 ml @ 0 mls/hr Q0M PRN IV 06/10/16 23:30 07/10/16 23:29 06/11/16 18:29 5 MLS/HR (Winter Lazaro, PINAC) Objective Vital Signs Date Time Temp Pulse Resp B/P Pulse Ox O2 Delivery O2 Flow Rate FiO2 06/12/16 08:00 91 Nasal Cannula 1.5 06/12/16 07:51 37.3 88 20 124/70 91 Nasal Cannula 1.5 06/12/16 07:13 94 2.0 06/12/16 04:00 36.6 81 20 121/60 91 CPAP 06/12/16 04:00 97 Nasal Cannula 1.5 CPAP 06/12/16 00:00 97 Nasal Cannula 1.5 CPAP 06/12/16 00:00 36.8 85 18 112/66 97 CPAP 1.5 06/11/16 22:08 94 2.0 06/11/16 20:00 96 Nasal Cannula 1.5 06/11/16 19:44 36.7 81 16 108/51 96 Nasal Cannula 2.0 06/11/16 16:00 96 Nasal Cannula 1.5 06/11/16 15:34 36.6 79 16 121/61 96 Nasal Cannula 2.0 06/11/16 12:00 92 CPAP 1.5 06/11/16 11:36 83 80 06/11/16 11:06 36.3 74 18 134/69 96 Nasal Cannula 2.0 (Winter Lazaro, PA-C) Physical Exam General Appearance: no apparent distress, + obese Eyes: normal inspection, PERRL ENT: hearing grossly normal Neck: supple Respiratory/Chest: no respiratory distress, no accessory muscle use, + decreased breath sounds (throughout ), + crackles (bilateral lung bases ) Cardiovascular: regular rate, rhythm Abdomen: normal bowel sounds, non tender, soft Extremities: no pedal edema, no calf tenderness, + pertinent finding (no obvious sores/wounds or bruising on bilateral heels; no tenderness to palaption of bilateral heels ) Neurologic/Psychiatric: alert, normal mood/affect, oriented x 3 Skin: normal color, warm/dry, no rash (Winter Lazaro ., PA-C) Laboratory Results Last 24 Hours Test 06/11/16 11:20 06/11/16 15:32 06/11/16 20:27 06/12/16 05:55 Bedside Glucose 186 mg/dl 183 mg/dl 206 mg/dl White Blood Count 8.19 K/uL Red Blood Count 3.22 M/uL Hemoglobin 8.9 g/dL Hematocrit 30.5 % Mean Corpuscular Volume 94.7 fL Mean Corpuscular Hemoglobin 27.6 pg Mean Corpuscular Hemoglobin Concent 29.2 g/dl Platelet Count 152 K/uL Mean Platelet Volume 10.8 fL Neutrophils (%) (Auto) 66.3 % Lymphocytes (%) (Auto) 16.5 % Monocytes (%) (Auto) 15.6 % Eosinophils (%) (Auto) 1.0 % Basophils (%) (Auto) 0.2 % Neutrophils # (Auto) 5.43 K/uL Lymphocytes # (Auto) 1.35 K/uL Monocytes # (Auto) 1.28 K/uL Eosinophils # (Auto) 0.08 K/uL Basophils # (Auto) 0.02 K/uL RDW Standard Deviation 54.2 fL RDW Coefficient of Variation 16.0 % Immature Granulocyte % (Auto) 0.4 % Immature Granulocyte # (Auto) 0.03 K/uL Red Blood Cell Morphology Unremarkable Sodium Level 139 mmol/L Potassium Level 3.4 mmol/L Chloride Level 93 mmol/L Carbon Dioxide Level 43 mmol/L Anion Gap 4.0 mmol/L Blood Urea Nitrogen 48 mg/dl Creatinine 1.50 mg/dl Est Creatinine Clear Calc Drug Dose 43.6 ml/min Estimated GFR () 48.2 Estimated GFR (Non- 41.6 BUN/Creatinine Ratio 32.2 Random Glucose 55 mg/dl Calcium Level 8.9 mg/dl Test 06/12/16 07:37 06/12/16 07:52 06/12/16 08:13 Bedside Glucose 63 mg/dl 59 mg/dl 117 mg/dl (Winter Lazaro, PA-C) Assessment and Plan 85-year-old male presents emergency department with a few weeks of dyspnea on exertion Acute on chronic systolic/diastolic heart failure/acute respiratory failure with hypoxia- IMPROVING: - Admit to tele for cardiac monitoring- reviewed- NSR w/ HR 70-80s w/ PVCs/PACS/ couplets - Echo reviewed- Diastolic dysfunction III. EF reduced from a previous echo to 25-30%. Inferior wall and septum severely hypokinetic - Discussed importance of compliance w/ Lasix home dosage - Lasix drip yesterday-- > rate 5 mg per hour--> titrated up 2 mg as need for urine output approx 55 ml per hr -- d/c Lasix drip, begin Lasix 60 mg PO BID on 06/12 - d/c Vuong on 06/12 - Monitor I&Os/daily weights--> continues negative UO balance - O2 protocol, wean as tolerated- does NOT wear O2 supplement at home - Consult cardiology, appreciate recommendations Bilateral heel/lower extremity pain: - Oxycodone PRN for pain management - Check uric acid Mild hypokalemia at 3.4 on 06/12: Start Potassium 20 mEq daily Elevated troponin- peak at 0.869, ?probably secondary to HF History of coronary artery disease, CABG 2: Continue aspirin 81 mg daily, Imdur ER 30 mg daily, Carvedilol 12.5 mg BID, and Losartan 12.5 mg daily Hypercholesterolemia: Continue Pravastatin 40 mg daily Anemia-normocytic normochromic- STABLE: - Continue FeS04 325 mg BID with stool softener - Follow H&H daily - Follows w/ heme/onc and occasionally gets Fe infusions- f/u with heme/onc next week already scheduled-->may need Fe infusion at that time Chronic kidney disease stage III- STABLE: Follow PRP T2DM w/ episodes of symptomatic hypoglycemia: - Lantus 55 u HS - BSG ACHS w/ sliding insulin scale - Resume Humalog with meals upon d/c ATILIO: Continue CPAP use GI Prophylaxis: Maalox PRN, IV Zofran PRN, Colace and/or Milk of Mag PRN DVT prophylaxis: Heparin 5000 u subQ BID, TEDS, SCDs CODE STATUS: LEVEL I FULL CODE Dispo: - PT/OT recommendations- pt OK to resume home - Return to home once medically stable- hopefully w/in the next 1-2 days (Winter Lazaro ., PA-C) PA Physician Supervision Note: I interviewed and examined the patient. Discussed with Winter Lazaro PAC and agree with findings and plan as documented in the note. Any exceptions or clarifications are listed here: None My Rivera says he feels not well today, did have some hypoglycemia, c/o legs aching, but does say he is much less short of breath and his SANCHEZ has resolved vitals stable acute systolic heart failure, change to po lasix has stable Cr and seems dry weight is around 108 kg(keeping metolozone) continue cozaar, coreg and imdur supplemental oxygen and cpap at high diabetes on basal bolus with scale, reduce lantus and loosen scale if stable on po lasix consider home 06/13 if does well at PT/OT Documented By: Moshe Palmer (Moshe Palmer M.D.)
[2016-06-12] MEDS ORDERED: OXYCODONE HCL IR 5 MG TAB (IMMEDIATE RELEASE) PO PRN (11:30)
[2016-06-12] MEDS: FUROSEMIDE 20 MG TAB PO SCH ×2 (13:03→17:43)
[2016-06-12] MEDS: ROPINIROLE HCL 0.25 MG TAB PO SCH (21:08)
[2016-06-12] MEDS: PRAVASTATIN SOD 40 MG TAB PO SCH (21:09)
[2016-06-12] MEDS: TAMSULOSIN HCL 0.4 MG CAP PO SCH (21:09)
[2016-06-12] MEDS: INSULIN GLARGINE SOLOSTAR 100 UNITS/ML 3 ML PEN SQ SCH (21:10)
[2016-06-12] MEDS: FLUTICASONE PROPIONATE NA SPR 16 GM BTL NAE PRN (21:24)
[2016-06-13] VITALS (10 sets, daily range): BP systolic 103–130; BP diastolic 59–67; PULSE 73–87; TEMP 36.2–36.7; O2SAT 91–97
[2016-06-13 06:50] LABS: BUN/CREATININE RATIO 34.3 (10-20); CREATININE 1.6 mg/dl (0.60-1.40); POTASSIUM 3.6 mmol/L (3.5-5.1); URIC ACID 14.6 mg/dl (2.6-7.2)
[2016-06-13] MEDS ORDERED: COLCHICINE 0.6 MG TAB PO ONE ×2 (08:00→09:00)
[2016-06-13] MEDS: ASPIRIN 81 MG ECTAB PO SCH (08:18)
[2016-06-13] MEDS: BISACODYL 5 MG TABEC PO SCH (08:18)
[2016-06-13] MEDS: PANTOprazole SOD 40 MG TAB PO SCH (08:18)
[2016-06-13] MEDS: METOLAZONE 5 MG TAB PO SCH (08:19)
[2016-06-13] MEDS: FUROSEMIDE 20 MG TAB PO SCH (08:19)
[2016-06-13] MEDS: POTASSIUM CHLORIDE 20 MEQ TABCR PO SCH (08:20)
[2016-06-13] MEDS: FERROUS SULFATE 325 MG TAB PO SCH ×2 (08:21→17:30)
[2016-06-13] MEDS: ISOSORBIDE MONONITRATE 30 MG TABCR PO SCH (08:21)
[2016-06-13] MEDS: PrednisoLONE ACET 1% OP SUSP 5 ML BTL OPL SCH (08:22)
[2016-06-13] MEDS: KETOCONAZOLE 2% CR 15 GM TUBE EXT SCH ×2 (08:23→20:51)
[2016-06-13] MEDS: CARVEDILOL 12.5 MG TAB PO SCH ×2 (08:24→20:39)
[2016-06-13] MEDS: DOCUSATE SODIUM 100 MG CAP PO SCH ×2 (08:24→20:38)
[2016-06-13] MEDS: LOSARTAN POTASSIUM 25 MG TAB PO SCH (08:25)
[2016-06-13] MEDS: INSULIN ASPART 100 UNITS/ML 3 ML PEN SC SCH ×4 (08:32→20:43)
[2016-06-13] MEDS: HEPARIN SOD 5000 UNIT/0.5 ML CARP SQ SCH ×2 (08:33→20:49)
[2016-06-13] MEDS ORDERED: LSX20 PO (09:37)
[2016-06-13] MEDS ORDERED: FRRS300 PO (09:37)
[2016-06-13] MEDS ORDERED: PRVC40 PO (09:37)
[2016-06-13] MEDS ORDERED: CZR25 PO (09:37)
[2016-06-13] MEDS ORDERED: FLM4 PO (09:37)
[2016-06-13] MEDS: TIOTROPIUM BROMIDE 5 PUFF/90 MCG INH INH SCH (09:40)
--- NOTE | 2016-06-13 09:46 | Discharge Instructions ---
Discharge Instructions Date of Service Jun 14, 2016. Admission Reason for Admission: Chf, Elevated Troponin Discharge Discharge Diagnosis / Problem: CHF; elevated trop, hypoxia Discharge Goals Goal(s): Decrease discomfort, Improve function, Increase independence, Learn about illness, Diagnostic testing, Therapeutic intervention, Prevent Disease Progression Activity Recommendations Activity Limitations: resume your previous activity . Instructions / Follow-Up Instructions / Follow-Up New/changed medications: 1. Lasix 80 mg by mouth twice per day 2. Tamsulosin 0.4 mg by mouth at bedtime This medication is to help with difficulty of urination caused by enlarged prostate 3. Ferrous sulfate supplement 325 mg by mouth twice per day This medication is an iron supplement 4. Oxygen 2 liters continuous 3 liters with exertion 5. advair 250/50 twice a day Resume all other regular home medications as prescribed Please follow-up with your PCP within 5-7 days Please follow-up with Cardiology as instructed by Dr. Gann Please keep scheduled follow-up appointment with Pulmonary Please follow-up/keep all of your subspecialty appointments Current Hospital Diet Patient's current hospital diet: Diabetes Type 2 Diet, AHA Diet (Heart Healthy) , Low Sodium Diet (2gm Na) Discharge Diet Recommended Diet: AHA Diet (Heart Healthy), Low Sodium Diet (2gm Na), Diabetes Type 2 Diet Pending Studies Studies pending at discharge: no Laboratory Results Last 24 Hours Test 06/12/16 11:32 06/12/16 16:44 06/12/16 19:55 06/13/16 05:27 Bedside Glucose 165 mg/dl 135 mg/dl 227 mg/dl Sodium Level 138 mmol/L Potassium Level 3.6 mmol/L Chloride Level 90 mmol/L Carbon Dioxide Level 44 mmol/L Anion Gap 4.0 mmol/L Blood Urea Nitrogen 55 mg/dl Creatinine 1.60 mg/dl Est Creatinine Clear Calc Drug Dose 40.7 ml/min Estimated GFR () 44.6 Estimated GFR (Non- 38.4 BUN/Creatinine Ratio 34.3 Random Glucose 149 mg/dl Uric Acid 14.6 mg/dl Calcium Level 9.0 mg/dl Test 06/13/16 07:35 Bedside Glucose 139 mg/dl Hemoglobin A1c Test 05/02/16 09:45 Range/Units Estimated Average Glucose 154 mg/dl Hemoglobin A1c 7.0 H 4.5-5.6 % Lipid Panel Test 05/02/16 09:45 Range/Units Triglycerides Level 89 0-150 mg/dl Cholesterol Level 156 0-200 mg/dl HDL Cholesterol 39 mg/dl Cholesterol/HDL Ratio 4.0 LDL Cholesterol, Calculated 99 mg/dl Medical Emergencies . Who to Call and When: Medical Emergencies: If at any time you feel your situation is an emergency, please call 911 immediately. . Non-Emergent Contact Non-Emergency issues call your: Primary Care Provider . . "Provider Documentation" section prepared by Winter Lazaro. . VTE Core Measure Inpt VTE Proph given/why not?: Unfractionated heparin SQ, SCD's
--- NOTE | 2016-06-13 09:56 | Discharge Summary ---
Discharge Summary Date of Service Jun 13, 2016. (Winter Lazaro, TRENA) Discharge Summary Admission Date: Jun 07, 2016 at 16:13 Discharge Date: Jun 13, 2016 Discharge Disposition: Home with services Principal Diagnosis: CHF; hypoxia Problems/Secondary Diagnoses: Acute on chronic systolic/diastolic heart failure/acute respiratory failure with hypoxia Bilateral heel/lower extremity pain, ?gout flare secondary to IV Lasix treatment Mild hypokalemia Elevated troponin History of coronary artery disease, CABG 2 Hypercholesterolemia Anemia-normocytic normochromic Chronic kidney disease stage III T2DM w/ episodes of symptomatic hypoglycemia COPD ATILIO Immunizations: Have You Had Influenza Vaccine: Yes Influenza Vaccine Date: Nov 26, 2011 History of Tetanus Vaccine?: Unknown History of Pneumococcal: Yes History of Hepatitis B Vaccine: Unknown Procedures: ECHOCARDIOGRAM: Interpretation Summary * Name: PARVEZ TUTTLE Study Date: 06/08/2016 02:30 PM BP: 118/58 mmHg * Patient Location: [facility] HR: 79 * : 1930 (M/d/yyyy) Gender: Male Height: 70 in * Age: 85 yrs Ethnicity: [place] Weight: 258 lb * Ordering Physician: Bertha Carlton. * Referring Physician: Self, Referred * Performed By: Aziza Mills RCS * * Reason For Study: CHF * BSA: 2.3 m2 * -- Conclusions -- * The left ventricle is moderately dilated. * There is mild concentric left ventricular hypertrophy. * Left ventricular systolic function is moderately reduced. * Diastolic dysfunction, Grade III, consistent with marked congestive heart failure. * There are regional wall motion abnormalities as specified. * The left atrium is borderline dilated. * Mild aortic regurgitation. * Mild valvular aortic stenosis. * Degree of may be underestimated due to reduced LV function * There is moderate mitral regurgitation. * Right ventricular systolic pressure is elevated at >60mmHg. * Mild aortic root dilatation. * Compared to a study from 2013, the aortic root measures larger and the pulmonary pressures are higher, otherwise minimal change Procedure Details * A complete two-dimensional transthoracic echocardiogram was performed (2D, M- mode, Doppler and color flow Doppler). Left Ventricle * The left ventricle is moderately dilated. * There is mild concentric left ventricular hypertrophy. * Ejection Fraction = 25-30%. * Left ventricular systolic function is moderately reduced. * Diastolic dysfunction, Grade III, consistent with marked congestive heart failure. * There are regional wall motion abnormalities as specified. * Inferior wall and septum are severely hypokinetic. Right Ventricle * The right ventricle is normal in size and function. Atria * The left atrium is borderline dilated. * Right atrial size is normal. Mitral Valve * The mitral valve is grossly normal. * There is moderate mitral regurgitation. Tricuspid Valve * The tricuspid valve is not well visualized, but is grossly normal. * There is mild tricuspid regurgitation. * Right ventricular systolic pressure is elevated at >60mmHg. Aortic Valve * Mild valvular aortic stenosis. * Degree of may be underestimated due to reduced LV function * Mild aortic regurgitation. Great Vessels * Mild aortic root dilatation. Pericardium/Pleural * There is no pericardial effusion. Great Vessels * Dilated inferior vena cava with reduced collapsability with sniff indicates an elevated right atrial pressure of 15 mmHg MMode 2D Measurements and Calculations IVSd 1.3 cm IVSs 1.6 cm LVIDd 6.5 cm LVIDs 5.8 cm LVPWd 1.2 cm LVPWs 1.5 cm IVS/LVPW 1.1 FS 9.9 % EDV(Teich) 212.5 ml ESV(Teich) 167.6 ml EF(Teich) 21.1 % EDV(cubed) 268.8 ml ESV(cubed) 196.8 ml EF(cubed) 26.8 % % IVS thick 24.5 % % LVPW thick 25.7 % LV mass(C)d 383.8 grams LV mass(C)dI 165.0 grams/m\S\2 LV mass(C)s 443.9 grams LV mass(C)sI 190.9 grams/m\S\2 SV(Teich) 44.9 ml SI(Teich) 19.3 ml/m\S\2 SV(cubed) 72.1 ml SI(cubed) 31.0 ml/m\S\2 Ao root diam 4.3 cm Ao root area 14.2 cm\S\2 ACS 1.3 cm LA dimension 4.0 cm LA/Ao 0.94 LVOT diam 2.1 cm LVOT area 3.5 cm\S\2 LVAd ap4 45.0 cm\S\2 LVLd ap4 9.6 cm EDV(MOD-sp4) 174.7 ml EDV(sp4-el) 178.7 ml LVAs ap4 38.9 cm\S\2 LVLs ap4 8.6 cm ESV(MOD-sp4) 143.5 ml ESV(sp4-el) 149.7 ml EF(MOD-sp4) 17.9 % EF(sp4-el) 16.2 % LVAd ap2 58.1 cm\S\2 LVLd ap2 9.9 cm EDV(MOD-sp2) 277.9 ml EDV(sp2-el) 290.5 ml LVAs ap2 50.8 cm\S\2 LVLs ap2 10.0 cm ESV(MOD-sp2) 211.4 ml ESV(sp2-el) 219.3 ml EF(MOD-sp2) 23.9 % EF(sp2-el) 24.5 % LVLd %diff 2.5 % EDV(MOD-bp) 221.7 ml LVLs %diff 13.9 % ESV(MOD-bp) 189.6 ml EF(MOD-bp) 14.5 % SV(MOD-sp4) 31.2 ml SI(MOD-sp4) 13.4 ml/m\S\2 SV(MOD-sp2) 66.5 ml SI(MOD-sp2) 28.6 ml/m\S\2 SV(MOD-bp) 32.1 ml SI(MOD-bp) 13.8 ml/m\S\2 SV(sp4-el) 28.9 ml SI(sp4-el) 12.4 ml/m\S\2 SV(sp2-el) 71.2 ml SI(sp2-el) 30.6 ml/m\S\2 Doppler Measurements and Calculations MV E max erinn 146.0 cm/sec MV A max erinn 71.0 cm/sec MV E/A 2.1 MV P1/2t max erinn 146.0 cm/sec MV P1/2t 55.1 msec MVA(P1/2t) 4.0 cm\S\2 MV dec slope 775.4 cm/sec\S\2 MV dec time 0.14 sec Ao V2 max 224.7 cm/sec Ao max PG 20.2 mmHg Ao max PG (full) 17.6 mmHg Ao V2 mean 150.3 cm/sec Ao mean PG 10.7 mmHg Ao V2 VTI 48.0 cm LAURIE(V,A) 1.2 cm\S\2 LAURIE(V,D) 1.2 cm\S\2 AI max erinn 359.5 cm/sec AI max PG 51.7 mmHg AI dec slope 405.7 cm/sec\S\2 AI P1/2t 259.6 msec LV V1 max PG 2.6 mmHg LV V1 max 80.9 cm/sec MR max erinn 453.3 cm/sec MR max PG 82.2 mmHg SV(Ao) 682.3 ml SI(Ao) 293.3 ml/m\S\2 PA V2 max 96.5 cm/sec PA max PG 3.7 mmHg TR max erinn 333.9 cm/sec Created: Initialized: 06/08/16; 1701 <Electronically signed by Tyrone Carr MD> Signed: 06/12/16 0844 Tyrone Carr MD The status of this report is Signed. Draft = Not yet reviewed or approved by [employer]. Signed = Reviewed and approved by [employer]. SINGLE VIEW CHEST CLINICAL HISTORY: Atypical chest pain. FINDINGS: An AP, portable, upright chest radiograph is compared to study dated 11/30/2014. The examination is degraded by portable technique and patient rotation. The patient is status post midline sternotomy. The heart is enlarged and there is atherosclerotic calcification of the thoracic aorta. There is pulmonary vascular congestion and mild interstitial edema. No focal airspace consolidation or large pleural effusion is identified. No pneumothorax is seen. The skeletal structures are osteopenic. Degenerative change is noted throughout the thoracic spine. IMPRESSION: Cardiomegaly with evidence of congestive failure and interstitial edema. Electronically signed by: Sheldon Oliva M.D. 06/07/2016 12:45 PM Dictated Date/Time: 06/07/2016 12:43 PM The status of this report is Signed. Draft = Not yet reviewed or approved by Radiologist. Signed = Reviewed and approved by Radiologist. Consultations: Cardiology (Winter Lazaro, TRENA) Discharge Date: Jun 14, 2016 Discharge Disposition: Home with services Principal Diagnosis: acute systolic heart failure, acute on chronic hypoxic respiratory failure Procedures: 2 step resp eval showing need for continuous oxygen (Moshe Palmer M.D.) Medication Reconciliation New Medications: Oxygen (Oxygen) Gas 2 LITERS NA UD for 365 Days 2 liters at rest/sleep and 3 liters with exertion Ferrous Sulfate (Ferrous Sulfate) 325 Mg Tab 325 MG PO BIDM for 30 Days, #60 TAB Fluticasone Prop/Salmeterol (Advair Diskus 250-50 Mcg/Dose) 14 Puff/1 Inhaler Aerp 1 PUFF INH BID, #1 INHALER 6 Refills Furosemide (Furosemide) 80 Mg Tab 80 MG PO BID17, #60 TAB please cancel the 60 mg dose Losartan Potassium (Losartan Potassium) 25 Mg Tab 12.5 MG PO QAM for 30 Days, #15 TAB Pravastatin Sod (Pravastatin Sodium) 40 Mg Tab 40 MG PO QPM for 30 Days, #30 TAB Tamsulosin HCl (Tamsulosin HCl) 0.4 Mg Cap 0.4 MG PO HS for 30 Days, #30 CAP Continued Medications: Aspirin (Aspirin Chewable) 81 Mg Chew 81 MG PO QAM, TAB Carvedilol (Coreg) 12.5 Mg Tab 12.5 MG PO BID, TAB Fluticasone Propionate (Nasal) (Flonase Allergy Relief) 50 Mcg/Act Spr 2 SPRAY ELEUTERIO DAILY PRN for ALLERGY RELIEF Insulin Glargine (Lantus Solostar) 100 Unit/Ml Inj 55 UNITS SQ HS, #30 Insulin Lispro (Human) (Humalog Kwikpen) 100 Unit/Ml Inj 30 UNITS SC AC, #45 sliding scale. 30unitsb 25lunch 40dinner 125daily sc Ipratropium-Albuterol (Duoneb) 3 Ml Nebu 1 TREATMENT INH Q6H PRN for Shortness of Breath, INHA Isosorbide Mononitrate Ext Rel (Imdur Ext Rel) 30 Mg Tabcr 1 TAB PO DAILY, #90 Metolazone (Metolazone) 5 Mg Tab 1 TAB PO DAILY, #30 30 mins before lasix Omeprazole (Prilosec) 40 Mg Cap 1 TAB PO DAILY, #30 Potassium Chloride Microencaps (Potassium Chloride Er) 20 Meq Tab 1 TAB PO DAILY, #30 Tiotropium [place] (Spiriva Handihaler) 30 Puff/540 Mcg Aerp 1 PUFF INH DAILY, #30 Discontinued Medications: Furosemide (Furosemide) 40 Mg Tab 1 TAB PO BID, #60 Losartan Potassium (Losartan Potassium) 25 Mg Tab 1 TAB PO DAILY, #30 Referrals At Discharge Follow up Referrals: Family Practice Referral - Within 1 Week with Eren Turner M.D. Discharge Exam Review of Systems: Constitutional: No chills, No fatigue, No fever, No sweats, No weakness Respiratory: + shortness of breath (w/ exertion ), No cough, No hemoptysis Cardiovascular: No chest pain, No edema, No palpitations Abdomen: No constipation, No diarrhea, No nausea, No pain, No vomiting Musculoskeletal: + joint pain (bilateal heel buck ), No calf pain, No muscle pain, No swelling Genitourinary - Male: No dysuria, No hematuria Neurologic: No numbness/tingling, No weakness Psychiatric: No anxiety, No depression symptoms Hematologic / Lymphatic: No abnormal bleeding/bruising Integumentary: No itch, No new/changing skin lesions, No rash Physical Exam: General Appearance: no apparent distress, + obese Eyes: normal inspection, PERRL ENT: hearing grossly normal Neck: supple Respiratory/Chest: lungs clear, no respiratory distress, no accessory muscle use, + decreased breath sounds (throughout all lung alergia ) Cardiovascular: regular rate, rhythm Abdomen / GI: normal bowel sounds, non tender, soft Extremities: no calf tenderness, no pedal edema Neurologic/Psychiatric: alert, normal mood/affect, oriented x 3 Skin: normal color, warm/dry, no rash (Winter Lazaro, PA-C) Review of Systems: Constitutional: No chills, No fever Respiratory: + cough, + dyspnea on exertion, No dyspnea at rest, No shortness of breath, No sputum, No wheezing Cardiovascular: No PND, No chest pain, No edema, No orthopnea Abdomen: No diarrhea, No nausea, No pain, No vomiting Musculoskeletal: + muscle pain, No calf pain, No joint pain, No swelling Genitourinary - Male: No dysuria, No hematuria Neurologic: + memory loss, + weakness Psychiatric: + anhedonism, No depression symptoms Physical Exam: General Appearance: WD/WN Eyes: PERRL, EOMI Neck: supple, no JVD Respiratory/Chest: chest non-tender, lungs clear, + respiratory distress ( mild ), + accessory muscle use Cardiovascular: regular rate, rhythm, + systolic murmur Abdomen / GI: normal bowel sounds, non tender, soft Extremities: normal range of motion, + pedal edema Neurologic/Psychiatric: alert, oriented x 3 (Moshe Palmer M.D.) Hospital Course 85-year-old male presents emergency department with a few weeks of dyspnea on exertion Acute on chronic systolic/diastolic heart failure/acute respiratory failure with hypoxia- IMPROVING: - Admit to tele for cardiac monitoring- reviewed- NSR w/ HR 70-80s w/ PVCs/PACS/ couplets - Echo reviewed- Diastolic dysfunction III. EF reduced from a previous echo to 25-30%. Inferior wall and septum severely hypokinetic - Discussed importance of compliance w/ Lasix home dosage - Lasix drip yesterday-- > rate 5 mg per hour--> titrated up 2 mg as need for urine output approx 55 ml per hr -- d/c Lasix drip, begin Lasix 60 mg PO BID on 06/12 - d/c Ortiz on 06/12 - Monitor I&Os/daily weights--> continues negative UO balance - O2 protocol, wean as tolerated- does NOT wear O2 supplement at home - Consult cardiology, appreciate recommendations - Reenforced daily weight and medication compliance Bilateral heel/lower extremity pain, ?gout flare secondary to IV Lasix treatment : - Oxycodone PRN for pain management - Elevated uric acid- treated with Colchicine 1.2 mg x1 dose, then 0.6 mg x1 dose Mild hypokalemia at 3.4 on 06/12- RESOLVED: Start Potassium 20 mEq daily Elevated troponin- peak at 0.869, ?probably secondary to HF History of coronary artery disease, CABG 2: Continue aspirin 81 mg daily, Imdur ER 30 mg daily, Carvedilol 12.5 mg BID, and Losartan 12.5 mg daily Hypercholesterolemia: Continue Pravastatin 40 mg daily Anemia-normocytic normochromic- STABLE: - Continue FeS04 325 mg BID with stool softener - Follow H&H daily - Follows w/ heme/onc and occasionally gets Fe infusions- f/u with heme/onc next week already scheduled--> may need Fe infusion at that time Chronic kidney disease stage III- STABLE: Follow PRP T2DM w/ episodes of symptomatic hypoglycemia: - Lantus 55 u HS - BSG ACHS w/ sliding insulin scale - Resume Humalog with meals upon d/c COPD (smoking history of 75 years): - Continue home inhalers - Per patient/son, patient was to have appointment w/ Dee Scott PA-C w/ pulmonary on 06/08- has been in contact w/ office and arranging another appointment ATILIO: Continue CPAP use GI Prophylaxis: Maalox PRN, IV Zofran PRN, Colace and/or Milk of Mag PRN DVT prophylaxis: Heparin 5000 u subQ BID, TEDS, SCDs CODE STATUS: LEVEL I FULL CODE Dispo: Discharge to home w/ [facility] Total Time Spent: Greater than 30 minutes This includes examination of the patient, discharge planning, medication reconciliation, and communication with other providers. (Winter Lazaro PA-C) 85 M with acute systolic heart failure, and acute on chronic hypoxic respiratory failure My Tuttle says he feels much better today, elevated uric acid, legs not aching acute systolic heart failure, increase po lasix to 80 mg bid Crhas stable Cr ( keeping metolozone) continue cozaar, coreg and imdur copd will add advair, continue inhaled meds and 2 step shows need for supplemental oxygen 2 liters continuous and 3 with exertion using 2 w cpap, enocuraged cpap use even with sleeping diabetes on basal bolus close hospital follow up is risk of readmission Documented By: Moshe Palmer Total Time Spent: Greater than 30 minutes (Moshe Palmer M.D.) Discharge Instructions Please refer to the electronic Patient Visit Report (Discharge Instructions) for additional information. (Winter Lazaro PA-C) Follow-Up Please follow-up with your PCP within 5-7 days Please follow-up with Cardiology as instructed by Dr. Gann Keep scheduled follow-up appointment with Pulmonary Please follow-up/keep all of your subspecialty appointments (Winter Lazaro PA-C) Additional Copies To Eren Turner M.D.
--- NOTE | 2016-06-13 10:09 | CARDIOLOGY PROGRESS NOTE ---
DATE: 06/13/2016 SUBJECTIVE: Mr. Rivera is resting comfortably at the bedside without complaints of chest pain or dyspnea. Anxious for hospital discharge. OBJECTIVE: VITAL SIGNS: Blood pressure is 114/66 with a regular pulse of 76. Respiratory rate is 20. The patient is afebrile at 36.3 degrees Celsius. Saturations 91% on room air. NECK: Supple with full carotid upstrokes. No obvious bruits or transmitted murmurs. Jugular venous pressure is flat at 90 degrees. There is no thyromegaly. CARDIOVASCULAR: Reveals a regular rhythm with distant heart sounds. A 2/6 basal systolic ejection murmur is noted. LUNGS: Clear without rales, rhonchi, or wheezes. ABDOMEN: Benign without bruits. EXTREMITIES: Reveal intact radial artery pulses bilaterally. Trace pretibial edema is noted. Hyperpigmentation changes again noted. DATA: Electrolytes note a sodium of 138, potassium 3.6, chloride 90, bicarbonate 44, BUN 55, creatinine 1.6, glucose 149. Weight is down another 1.3 kilograms from yesterday. monitoring engineer is benign. IMPRESSION AND PLAN: 1. 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 b.i.d. Had been on 80 mg b.i.d. as an outpatient. We will make adjustments as necessary. We have again stressed the importance of daily weights and sliding scale diuretics. 2. Ischemic cardiomyopathy -- ejection fraction of 25%-30%. 3. Coronary artery disease -- with inferior wall motion abnormality on recent echocardiogram. 4. Mild aortic stenosis/insufficiency. 5. Hypertension -- controlled. 6. Hypercholesterolemia -- continue pravastatin. 7. Status post coronary artery bypass graft x2 -- 1996. 8. Diabetes mellitus. 9. Obstructive sleep apnea. 10. Disposition -- stable for hospital discharge from a cardiac perspective.
--- NOTE | 2016-06-13 14:28 | Hospitalist Progress Note ---
Hospitalist Progress Note Date of Service Jun 13, 2016. (Winter Lazaro ., PA-C) Subjective Pt evaluation today including: conversation w/ patient, conversation w/ family , physical exam, chart review, lab review, review of inpatient medication list Voiding: no voiding problems, no incontinence Patient was feeling well this AM and ready for discharge. Around 1400, patient became very lethargic/ lightheaded and dizzy. +SOB. Reassessed patient, states he is feeling very weak and lightheaded. Checked pulse ox while speaking with patient and O2 at 83%- Continue O2 protocol/check CXR. Patient denies any fever, chills, sweats, vision changes, CP, palpitations, edema, wheezing, cough, abdominal pain, nausea, vomiting, diarrhea, urinary symptoms, melena, numbness/tingling, muscle/joint pain, anxiety/depression, active bleeding, or new skin discoloration/changes. (Winter Lazaro ., PA-C) Medications Current Inpatient Medications Medications (Trade) Dose Ordered Sig/Dafne Route Start Time Stop Time Status Last Admin Dose Admin Acetaminophen (Tylenol Tab) 650 mg Q4H PRN PO 06/07/16 15:15 07/07/16 15:14 06/12/16 19:30 650 MG Al Hydrox/Mg Hydrox/Simethicone (Maalox Max Susp) 15 ml Q4H PRN PO 06/07/16 15:15 07/07/16 15:14 Magnesium Hydroxide (Milk Of Magnesia Susp) 30 ml Q6H PRN PO 06/07/16 15:15 07/07/16 15:14 Polyethylene (Miralax Powder Packet) 17 gm DAILY PRN PO 06/07/16 16:00 07/07/16 15:59 Ondansetron HCl (Zofran Inj) 4 mg Q6H PRN IV 06/07/16 15:15 07/07/16 15:14 Aspirin (Ecotrin Tab) 81 mg QAM PO 06/08/16 08:00 07/08/16 08:59 06/13/16 08:18 81 MG Carvedilol (Coreg Tab) 12.5 mg BID PO 06/07/16 20:00 07/07/16 20:59 06/13/16 08:24 12.5 MG Ergocalciferol (Vitamin D Cap) 50,000 interunit Th@0900 PO 06/14/16 09:00 07/14/16 08:59 Fluticasone Propionate (Flonase Nasal [place]) 2 sprays DAILY PRN ELEUTERIO 06/07/16 15:15 07/07/16 15:14 06/12/16 21:24 2 SPRAYS Acetaminophen/ Hydrocodone Bitart (Lamont 5/325 Tab) 1 tab Q4H PRN PO 06/07/16 15:15 06/21/16 15:14 Isosorbide Mononitrate (Imdur Ext Rel Tab) 30 mg QAM PO 06/08/16 08:00 07/08/16 08:59 06/13/16 08:21 30 MG Ketoconazole (Nizoral 2% Crm) 1 appln BID EXT 06/07/16 20:00 06/17/16 20:59 06/13/16 08:23 1 APPLN Losartan Potassium (coZAAR TAB) 12.5 mg QAM PO 06/08/16 08:00 07/08/16 08:59 06/13/16 08:25 12.5 MG Pravastatin Sodium (Pravachol Tab) 40 mg QPM PO 06/07/16 21:00 07/07/16 20:59 06/12/16 21:09 40 MG Prednisolone Acetate (Pred Forte 1% Oph Susp) 1 drops QAM OPL 06/08/16 08:00 07/08/16 08:59 06/13/16 08:22 1 DROPS Ropinirole HCl (Requip Tab) 0.25 mg HS PO 06/07/16 21:00 07/07/16 20:59 06/12/16 21:08 0.25 MG Tiotropium [place] (Spiriva Handihaler Inhaler) 1 puff DAILY INH 06/08/16 08:00 07/08/16 08:59 06/13/16 09:40 1 PUFF Tamsulosin HCl (Flomax Cap) 0.4 mg HS PO 06/07/16 21:00 07/07/16 20:59 06/12/16 21:09 0.4 MG Metolazone (Zaroxolyn Tab) 5 mg DAILY@0830 PO 06/08/16 08:30 07/08/16 08:29 06/13/16 08:19 5 MG Insulin Aspart (novoLOG ASPART) SLIDING SCALE If C... ACHS SC 06/07/16 21:00 06/13/16 12:50 6 UNITS Glucose (Glucose 40% Gel) UD PRN PO 06/07/16 16:15 07/07/16 16:14 Glucose (Glucose Chew Tab) 1 tabs UD PRN PO 06/07/16 16:15 07/07/16 16:14 Dextrose (Dextrose 50% 50ML Syringe) 50 ml UD PRN IV 06/07/16 16:15 07/07/16 16:14 Glucagon (Glucagon Inj) 1 mg UD PRN SQ 06/07/16 16:15 07/07/16 16:14 Pantoprazole Sodium (Protonix Tab) 40 mg QAM PO 06/08/16 08:00 07/08/16 08:59 06/13/16 08:18 40 MG Heparin Sodium (Porcine) (Heparin Sq 5000 Unit/0.5ml) 5,000 unit Q12 SQ 06/08/16 21:00 07/08/16 20:59 06/13/16 08:33 5,000 UNIT Ferrous Sulfate (Feosol Tab) 325 mg BIDM PO 06/09/16 09:00 07/09/16 08:59 06/13/16 08:21 325 MG Bisacodyl (Dulcolax Tab) 5 mg DAILY PO 06/09/16 09:00 07/09/16 08:59 06/13/16 08:18 5 MG Docusate Sodium (coLACE CAP) 100 mg BID PO 06/09/16 09:00 07/09/16 08:59 06/13/16 08:24 100 MG Furosemide (Lasix Tab) 60 mg BID17 PO 06/12/16 10:00 07/12/16 09:59 06/13/16 08:19 60 MG Potassium Chloride (Klor-Con Tab) 20 meq QAM PO 06/13/16 09:00 07/13/16 08:59 06/13/16 08:20 20 MEQ Oxycodone HCl (Roxicodone Immediate Rel Tab) 10 mg Q6 PRN PO 06/12/16 11:30 06/26/16 11:29 Insulin Glargine (Lantus Solostar Pen) 48 unit HS SQ 06/12/16 21:00 5/18/17 20:59 06/12/16 21:10 48 UNIT Albuterol/ Ipratropium (Duoneb) 3 ml Q6R INH 06/13/16 15:00 07/13/16 14:59 UNV Salmeterol Xinafoate/ Fluticasone (Advair Diskus 250/50 Inh) 1 puff BID INH 06/13/16 21:00 07/13/16 20:59 UNV (Winter Lazaro, PA-C) Objective Vital Signs Date Time Temp Pulse Resp B/P Pulse Ox O2 Delivery O2 Flow Rate FiO2 06/13/16 13:13 36.3 76 20 92 CPAP 06/13/16 11:26 36.3 76 20 103/59 92 06/13/16 07:39 36.3 76 20 114/66 92 06/13/16 04:00 CPAP 1.5 06/13/16 03:09 36.2 73 20 130/64 96 CPAP 06/13/16 00:01 CPAP 1.5 06/12/16 23:10 36.9 88 18 101/50 92 CPAP 06/12/16 22:18 78 91 2.0 06/12/16 20:00 92 Nasal Cannula 1.5 06/12/16 18:59 37.2 87 20 118/60 91 06/12/16 16:00 95 Nasal Cannula 1.5 06/12/16 15:57 37.4 90 20 105/50 95 (Winter Lazaro, PA-C) Physical Exam General Appearance: no apparent distress Eyes: normal inspection, PERRL ENT: hearing grossly normal Neck: supple Respiratory/Chest: lungs clear, no respiratory distress, no accessory muscle use Cardiovascular: regular rate, rhythm Abdomen: normal bowel sounds, non tender, soft Extremities: no pedal edema, no calf tenderness Neurologic/Psychiatric: alert, normal mood/affect, oriented x 3, + pertinent finding (lethargic ) Skin: normal color, warm/dry, no rash (Winter Lazaro ., PA-C) Laboratory Results Last 24 Hours Test 06/12/16 16:44 06/12/16 19:55 06/13/16 05:27 06/13/16 07:35 Bedside Glucose 135 mg/dl 227 mg/dl 139 mg/dl Sodium Level 138 mmol/L Potassium Level 3.6 mmol/L Chloride Level 90 mmol/L Carbon Dioxide Level 44 mmol/L Anion Gap 4.0 mmol/L Blood Urea Nitrogen 55 mg/dl Creatinine 1.60 mg/dl Est Creatinine Clear Calc Drug Dose 40.7 ml/min Estimated GFR () 44.6 Estimated GFR (Non- 38.4 BUN/Creatinine Ratio 34.3 Random Glucose 149 mg/dl Uric Acid 14.6 mg/dl Calcium Level 9.0 mg/dl Test 06/13/16 11:16 06/13/16 13:36 Bedside Glucose 168 mg/dl 235 mg/dl (Winter Lazaro, PAChadC) Assessment and Plan 85-year-old male presents emergency department with a few weeks of dyspnea on exertion Acute on chronic systolic/diastolic heart failure/acute respiratory failure with hypoxia- IMPROVING: - Admit to tele for cardiac monitoring- reviewed- NSR w/ HR 70-80s w/ PVCs/PACS/ couplets - Echo reviewed- Diastolic dysfunction III. EF reduced from a previous echo to 25-30%. Inferior wall and septum severely hypokinetic - Discussed importance of compliance w/ Lasix home dosage - Lasix drip yesterday-- > rate 5 mg per hour--> titrated up 2 mg as need for urine output approx 55 ml per hr -- d/c Lasix drip, begin Lasix 60 mg PO BID on 06/12 - d/c Ortiz on 06/12 - Monitor I&Os/daily weights--> continues negative UO balance - O2 protocol, wean as tolerated- does NOT wear O2 supplement at home - Consult cardiology, appreciate recommendations - Reenforced daily weight and medication compliance Bilateral heel/lower extremity pain, ?gout flare secondary to IV Lasix treatment : - Oxycodone PRN for pain management - Elevated uric acid- treated with Colchicine 1.2 mg x1 dose, then 0.6 mg x1 dose Mild hypokalemia at 3.4 on 06/12- RESOLVED: Start Potassium 20 mEq daily Elevated troponin- peak at 0.869, ?probably secondary to HF History of coronary artery disease, CABG 2: Continue aspirin 81 mg daily, Imdur ER 30 mg daily, Carvedilol 12.5 mg BID, and Losartan 12.5 mg daily Hypercholesterolemia: Continue Pravastatin 40 mg daily Anemia-normocytic normochromic- STABLE: - Continue FeS04 325 mg BID with stool softener - Follow H&H daily - Follows w/ heme/onc and occasionally gets Fe infusions- f/u with heme/onc next week already scheduled--> may need Fe infusion at that time Chronic kidney disease stage III- STABLE: Follow PRP T2DM w/ episodes of symptomatic hypoglycemia: - Lantus 55 u HS- decreased Lantus to 48 u while inpatient to prevent hypoglycemia, likely secondary to diet changes - BSG ACHS w/ sliding insulin scale - Resume Humalog with meals upon d/c Hypoxia, ?secondary to COPD (smoking history of 75 years) (likely) vs. acute infection vs. PE: - Continue inhalers - DuoNebs - Repeat CXR - Per patient/son, patient was to have appointment w/ Dee Scott PA-C w/ pulmonary on 06/08- has been in contact w/ office- f/u scheduled for June 28 ATILIO: Continue CPAP use GI Prophylaxis: Maalox PRN, IV Zofran PRN, Colace and/or Milk of Mag PRN DVT prophylaxis: Heparin 5000 u subQ BID, TEDS, SCDs CODE STATUS: LEVEL I FULL CODE Dispo: - Discharge to home w/ [facility] when medically stable, hopefully within the next 1-2 days - 2 step prior to discharge - Continue PT/OT (Winter Lazaro ., PAChadC) PA Physician Supervision Note: I interviewed and examined the patient. Discussed with Winter HURLEY and agree with findings and plan as documented in the note. Any exceptions or clarifications are listed here: None My Rivera says he feels not well again today, elevated uric acid, c/o legs aching , and no help with colchicine did attempt to discharge and was found to be persistently hypoxic after awakening, checked CXR with persistent congestive changes and will increase lasix but also treat copd as pt has a significant tobacco history acute systolic heart failure, one dose of iv lasix and increase po lasix has stable Cr (keeping metolozone) continue cozaar, coreg and imdur copd will add nebs and advair, supplemental oxygen and cpap diabetes on basal bolus with scale, reduce lantus and loosen scale gout no help with colchicine may consider steroids PT/OT Documented By: Moshe Palmer (Moshe Palmer M.D.)
--- NOTE | 2016-06-13 14:41 | DIAGNOSTIC IMAGING REPORT ---
CHEST 2 VIEWS ROUTINE CLINICAL HISTORY: Shortness of breath. Hypoxia. COMPARISON STUDY: 06/07/2016 FINDINGS: There are postsurgical changes of a midline sternotomy. The heart remains mildly enlarged. There is persistent mild pulmonary vascular congestion. There are increased markings in the right upper lung zone. This may reflect focal edema although an inflammatory process could appear similar.. There is a suspected trace right pleural effusion. IMPRESSION: Cardiomegaly and suspected mild pulmonary vascular congestion. Trace right pleural effusion. Subtle increased markings within the right upper lung zone, possibly representing focal edema. Electronically signed by: Rodrick Story M.D. 06/13/2016 2:39 PM Dictated Date/Time: 06/13/2016 2:37 PM
[2016-06-13] MEDS: FLUTICASONE PROPIONATE NA SPR 16 GM BTL NAE PRN (15:37)
[2016-06-13] MEDS ORDERED: FUROSEMIDE INJ 80 MG in SYRINGE 0 ML IV STA (15:39)
[2016-06-13] MEDS: ALBUT/IPRATROP 3MG/0.5MG NEB 3 ML VIAL INH SCH (20:02)
[2016-06-13] MEDS: PRAVASTATIN SOD 40 MG TAB PO SCH (20:39)
[2016-06-13] MEDS: FLUTICASONE/SALMETEROL 250/50 (ADVAIR) 14 PUFF/1 INHALER INH SCH (20:39)
[2016-06-13] MEDS: TAMSULOSIN HCL 0.4 MG CAP PO SCH (20:39)
[2016-06-13] MEDS: ROPINIROLE HCL 0.25 MG TAB PO SCH (20:39)
[2016-06-13] MEDS: INSULIN GLARGINE SOLOSTAR 100 UNITS/ML 3 ML PEN SQ SCH (20:49)
[2016-06-14] VITALS (8 sets, daily range): BP systolic 97–117; BP diastolic 49–65; PULSE 73–82; TEMP 36.3–36.9; O2SAT 84–98
[2016-06-14] MEDS: ALBUT/IPRATROP 3MG/0.5MG NEB 3 ML VIAL INH SCH ×3 (02:27→14:24)
[2016-06-14 06:30] LABS: BLOOD UREA NITROGEN 62 mg/dl (7-18); BUN/CREATININE RATIO 41.2 (10-20); CALCIUM 8.9 mg/dl (8.5-10.1); CARBON DIOXIDE 45 mmol/L (21-32); CHLORIDE 90 mmol/L (98-107); GLUCOSE 120 mg/dl (70-99); POTASSIUM 3.5 mmol/L (3.5-5.1); SODIUM 139 mmol/L (136-145)
[2016-06-14] MEDS: PANTOprazole SOD 40 MG TAB PO SCH (08:24)
[2016-06-14] MEDS: POTASSIUM CHLORIDE 20 MEQ TABCR PO SCH (08:25)
[2016-06-14] MEDS: ISOSORBIDE MONONITRATE 30 MG TABCR PO SCH (08:26)
[2016-06-14] MEDS: ASPIRIN 81 MG ECTAB PO SCH (08:27)
[2016-06-14] MEDS: FERROUS SULFATE 325 MG TAB PO SCH (08:27)
[2016-06-14] MEDS: DOCUSATE SODIUM 100 MG CAP PO SCH (08:27)
[2016-06-14] MEDS: BISACODYL 5 MG TABEC PO SCH (08:27)
[2016-06-14] MEDS: CARVEDILOL 12.5 MG TAB PO SCH (08:28)
[2016-06-14] MEDS: PrednisoLONE ACET 1% OP SUSP 5 ML BTL OPL SCH (08:29)
[2016-06-14] MEDS: TIOTROPIUM BROMIDE 5 PUFF/90 MCG INH INH SCH (08:29)
[2016-06-14] MEDS: FLUTICASONE/SALMETEROL 250/50 (ADVAIR) 14 PUFF/1 INHALER INH SCH (08:30)
[2016-06-14] MEDS: LOSARTAN POTASSIUM 25 MG TAB PO SCH (08:30)
[2016-06-14] MEDS: KETOCONAZOLE 2% CR 15 GM TUBE EXT SCH (08:31)
[2016-06-14] MEDS: METOLAZONE 5 MG TAB PO SCH (08:31)
[2016-06-14] MEDS: INSULIN ASPART 100 UNITS/ML 3 ML PEN SC SCH ×2 (08:40→12:56)
[2016-06-14] MEDS: HEPARIN SOD 5000 UNIT/0.5 ML CARP SQ SCH (08:41)
[2016-06-14] MEDS ORDERED: ERGOCALCIFEROL 50,000 INTER.UNIT CAP PO SCH (09:00)
[2016-06-14] MEDS ORDERED: FUROSEMIDE 80 MG TAB PO SCH (09:00)
--- NOTE | 2016-06-14 09:56 | CARDIOLOGY PROGRESS NOTE ---
DATE: 06/14/2016 SUBJECTIVE: Mr. Rivera is resting comfortably in bed without complaints of chest pain or dyspnea. Events of yesterday noted. The patient is anxious for hospital discharge. OBJECTIVE: VITAL SIGNS: Blood pressure is 110/63 with a regular pulse of 70. Respiratory rate is 20. The patient is afebrile at 36.9 degrees Celsius. Saturations 95% on room air. NECK: Supple with full carotid upstrokes. A quiet transmitted murmur is noted bilaterally. Jugular venous pressure is flat at 90 degrees. CARDIOVASCULAR: Reveals a regular rhythm with a 2/6 basal systolic ejection murmur. No S3 or S4. LUNGS: Clear without rales, rhonchi, or wheezes. ABDOMEN: Obese without bruits. EXTREMITIES: Reveal intact radial artery pulses bilaterally. Trace pretibial edema is noted. Hyperpigmentation changes again noted. DATA: CBC notes hemoglobin of 8.9, hematocrit 30.5, white count 8.2, platelet count 152,000. Electrolytes note a sodium of 139, potassium 3.5, chloride 90, bicarbonate 45, BUN 62, creatinine 1.5, glucose 120. Notes one brief episode of a wide complex tachycardia. IMPRESSION AND PLAN: 1. Acute on chronic combined diastolic and systolic congestive heart failure -- patient now stable on Lasix 80 mg b.i.d. We have again discussed the importance of daily weights and sliding scale diuretics. Tomorrow's weight at home will be considered his "dry" weight. Should he gain more than 3 pounds over the "dry" weight, patient is to administer an additional dose of his Lasix for a total of 80 mg t.i.d. on that particular day. 2. Ischemic cardiomyopathy -- ejection fraction 25-30%. 3. Coronary artery disease -- with an inferior wall motion abnormality on recent echocardiogram. 4. Status post coronary artery bypass graft x2 -- 1996. 5. Mild aortic stenosis/insufficiency. 6. Hypertension -- controlled. 7. Hypercholesterolemia -- continue pravastatin. 8. Diabetes mellitus. 9. Obstructive sleep apnea. 10. Disposition -- stable for hospital discharge from a cardiac perspective.
[2016-06-14] MEDS ORDERED: OXGN (11:49)
[2016-06-14] MEDS ORDERED: ADVIN25050 INH (11:49)
--- NOTE | 2016-06-14 11:50 | Discharge Instructions ---
Discharge Instructions Date of Service Jun 14, 2016. Admission Reason for Admission: Chf, Elevated Troponin Discharge Discharge Diagnosis / Problem: acute systolic /diastolic heart failure Discharge Goals Goal(s): Diagnostic testing, Therapeutic intervention Activity Recommendations Activity Limitations: resume your previous activity . Instructions / Follow-Up Instructions / Follow-Up Call your Primary Care doctor if any of the following symptoms or problems start or get worse: * Shortness of breath or difficulty breathing * Wake up at night short of breath * Chest pain * Cough * Swelling of your hands, feet, or legs * More fatigued or tired with your normal activity * Palpitations - sudden fast heart beats WEIGHT * Weigh yourself every morning after using the bathroom. * Use the same scale. * Wear the same amount of clothing. * Write your weight down on a chart. * Call your Primary Care doctor if you gain more than 2-3 pounds in 1-2 days. MEDICATIONS * Use this discharge instruction sheet for medication instructions. * Take your medications at the time your doctor ordered. * Do not skip a dose of your medicines. * If you miss a dose of medicine, take it as soon as possible, but DO NOT DOUBLE A DOSE. * Read your medicine information when you get home. * Know all of the side effects of your medicine. If in doubt, ask your pharmacist * Call your Primary Care doctor's office if you have any side effects. * Be sure all of your doctors know what medicine and herbs you take (including cold, flu, and herbal medicine). Take the following with you to your follow-up doctor appointments: * Weight Chart * Medication List * List of questions Do not drink excessive alcohol, beer or wine. Current Hospital Diet Patient's current hospital diet: Diabetes Type 2 Diet, AHA Diet (Heart Healthy) , Low Sodium Diet (2gm Na) Discharge Diet Recommended Diet: Low Sodium Diet (2gm Na) Pending Studies Studies pending at discharge: no Laboratory Results Hemoglobin A1c Test 05/02/16 09:45 Range/Units Estimated Average Glucose 154 mg/dl Hemoglobin A1c 7.0 H 4.5-5.6 % Lipid Panel Test 05/02/16 09:45 Range/Units Triglycerides Level 89 0-150 mg/dl Cholesterol Level 156 0-200 mg/dl HDL Cholesterol 39 mg/dl Cholesterol/HDL Ratio 4.0 LDL Cholesterol, Calculated 99 mg/dl Medical Emergencies . Who to Call and When: Call 911 or go to the Emergency Room if: * If at any time you feel your situation is an emergency * You have tightness or pain in your chest that does not go away with rest or Nitroglycerin * You are very short of breath even with rest . Non-Emergent Contact Non-Emergency issues call your: Primary Care Provider, [employer] . . "Provider Documentation" section prepared by Moshe Palmer. . VTE Core Measure Inpt VTE Proph given/why not?: Unfractionated heparin SQ, SCD's
[2016-06-14] MEDS ORDERED: LSX20 PO (11:53)
[2016-06-14] MEDS ORDERED: LSX80 PO (11:53)
== END 2016-06-14 14:48 | disposition home health service (06) | DRG 291 ==
LOC: ENRESERVDT → ENRESERVTM → EDBD 11:38 → C.EDA 11:39 → C.4E 16:13 → C.MED 18:44
PROVIDERS: ADMIT Hospitalist; ATTEND Internal Medicine
DX: I13.0 Hypertensive heart and chronic kidney disease with heart failure and stage 1 through stage 4 chronic kidney disease, or unspecified chronic kidney disease (principal); I50.43 Acute on chronic combined systolic (congestive) and diastolic (congestive) heart failure; J96.01 Acute respiratory failure with hypoxia; J44.9 Chronic obstructive pulmonary disease, unspecified; E11.22 Type 2 diabetes mellitus with diabetic chronic kidney disease; Z95.1 Presence of aortocoronary bypass graft; Z87.891 Personal history of nicotine dependence; Z88.8 Allergy status to other drugs, medicaments and biological substances; Z88.0 Allergy status to penicillin; Z79.82 Long term (current) use of aspirin; Z79.899 Other long term (current) drug therapy; Z79.4 Long term (current) use of insulin; D64.9 Anemia, unspecified; N40.0 Benign prostatic hyperplasia without lower urinary tract symptoms; I25.2 Old myocardial infarction; G47.33 Obstructive sleep apnea (adult) (pediatric); K21.9 Gastro-esophageal reflux disease without esophagitis; I25.10 Atherosclerotic heart disease of native coronary artery without angina pectoris; Z88.2 Allergy status to sulfonamides; Z91.11 Patient's noncompliance with dietary regimen; Z91.14 Patient's other noncompliance with medication regimen; E11.649 Type 2 diabetes mellitus with hypoglycemia without coma; K59.00 Constipation, unspecified; N18.3 Chronic kidney disease, stage 3 (moderate); I25.5 Ischemic cardiomyopathy; E78.00 Pure hypercholesterolemia, unspecified; I35.2 Nonrheumatic aortic (valve) stenosis with insufficiency; M10.9 Gout, unspecified; E87.6 Hypokalemia; C91.Z0 Other lymphoid leukemia not having achieved remission

== ENCOUNTER → 2016-07-16 | Outpatient (CLI) | payer OTHER, MEDICARE ==
[~2016-07-16] MED LIST changes: +ADVIN25050 INH; +CZR25 PO; -ERGO1CAP35 PO; +FLM4 PO; +FRRS300 PO; -FRS/40 PO; -HMLI SC; -HYDR-5688 PO; +INSDGIPEN SQ; +INSU100I2 SC; -INSUINJ4 SQ; -ISOS30TA13 PO; +ISOS30TA35 PO; -KETO2CRE14 TOP; -LOSA1TAB PO; +LSX80 PO; -OMEP40CA PO; +OMEP40CA41 PO; +OXGN; -POTA1TAB97 PO; +POTA20TA13 PO; -PRED1SUS3 OPL; -ROPI0.25 PO; +SPRIN/30 INH; +ZRX5 PO
--- NOTE | 2016-07-18 08:54 | PULMONARY FUNCTION TEST ---
Interpretation based on ATS criteria. SPIROMETRY: Severe obstructive ventilatory disease with no significant reversibility. LUNG VOLUMES: Signs of hyperinflation with an elevated residual volume at 126%. DIFFUSION CAPACITY: Mildly decreased but corrects off alveolar volume. INTERPRETATION: Severe obstructive ventilatory disease.
== END | disposition home or self-care (01) ==
LOC: C.RC 13:40
PROVIDERS: ATTEND Physician Assistant
DX: J44.9 Chronic obstructive pulmonary disease, unspecified (principal)

== ENCOUNTER → 2016-07-19 | Outpatient (CLI) | payer OTHER, MEDICARE ==
--- NOTE | 2016-07-19 13:19 | DIAGNOSTIC IMAGING REPORT ---
LEFT LOWER EXTREMITY VENOUS DOPPLER CLINICAL HISTORY: Left lower extremity edema. COMPARISON STUDY: Left lower external venous Doppler ultrasound November 28, 2012. TECHNIQUE: Sonography of the deep venous system of the left lower extremity was performed. Compression and augmentation were evaluated. FINDINGS: The common femoral, superficial femoral and popliteal veins were compressible. Augmentation was normal. Flow was shown within the deep calf vessels. IMPRESSION: No evidence of deep venous thrombus within the left lower extremity. Electronically signed by: Magen Watson M.D. 07/19/2016 1:17 PM Dictated Date/Time: 07/19/2016 1:17 PM
== END | disposition home or self-care (01) ==
LOC: C.ULTR 12:51
PROVIDERS: ATTEND Physician Assistant
DX: R60.9 Edema, unspecified (principal)

== ENCOUNTER → 2016-08-22 | Outpatient (CLI) | payer OTHER, MEDICARE ==
[2016-08-22 11:58] LABS: BLOOD UREA NITROGEN 54 mg/dl (7-18); BUN/CREATININE RATIO 29.8 (10-20); CALCIUM 9.5 mg/dl (8.5-10.1); CARBON DIOXIDE 31 mmol/L (21-32); CHLORIDE 99 mmol/L (98-107); GLUCOSE 159 mg/dl (70-99); POTASSIUM 3.5 mmol/L (3.5-5.1); SODIUM 138 mmol/L (136-145)
== END | disposition home or self-care (01) ==
LOC: C.LABSPEC 10:01
PROVIDERS: ATTEND Family Medicine
DX: I50.9 Heart failure, unspecified (principal); D64.9 Anemia, unspecified; C91.Z0 Other lymphoid leukemia not having achieved remission

== ENCOUNTER → 2016-09-21 | Outpatient (CLI) | payer OTHER, MEDICARE ==
--- NOTE | 2016-09-21 09:54 | DIAGNOSTIC IMAGING REPORT ---
RIGHT WRIST MIN 3 VIEWS ROUTINE CLINICAL HISTORY: 85 years-old Male presenting with bilateral hand and wrist pain secondary to osteoarthritis. TECHNIQUE: Frontal, bilateral oblique, and lateral views of the right wrist were obtained. COMPARISON: Correlation made to plain radiographs of the right hand from 09/06/2015. FINDINGS: Osteopenia. Ossification at the ulnar styloid likely old fracture. Cystic change in the trapezium and base of the first metacarpal consistent with degenerative changes of the first carpometacarpal joint. Radiocarpal and intercarpal articulations preserved. No acute fracture or malalignment. IMPRESSION: Osteopenia with degenerative changes of the first carpometacarpal joint. This is similar to prior exam. Signed report Electronically signed by: Bernardo Cordoba M.D. 09/21/2016 9:53 AM Dictated Date/Time: 09/21/2016 9:50 AM
--- NOTE | 2016-09-21 09:56 | DIAGNOSTIC IMAGING REPORT ---
LEFT WRIST MIN 3 VIEWS ROUTINE CLINICAL HISTORY: 85 years-old Male presenting with M19.249 Localized, secondary osteoarthritis of the hand, unspeci. TECHNIQUE: Frontal, bilateral oblique, and lateral views of the wrist were obtained. COMPARISON: None. FINDINGS: Suggestion of cystic change at the radial styloid, which may suggest degenerative changes of the radiocarpal articulation. Radiocarpal joint space is preserved. Osteopenia. Joint space loss, subchondral sclerosis and subchondral cystic change in the trapezium and first metacarpal base consistent with degenerative changes. Intercarpal articulations preserved. No acute fracture or malalignment. IMPRESSION: Degenerative changes of the first carpometacarpal joint with joint space loss, subchondral sclerosis, and subchondral cystic change. Possible mild degenerative changes at the radiocarpal articulation. Electronically signed by: Bernardo Cordoba M.D. 09/21/2016 9:55 AM Dictated Date/Time: 09/21/2016 9:53 AM
--- NOTE | 2016-09-21 09:59 | DIAGNOSTIC IMAGING REPORT ---
RIGHT HAND 3 VIEWS CLINICAL HISTORY: Osteoarthritis. FINDINGS: 3 views of the right hand are compared to study dated 09/06/2015. The skeletal structures are osteopenic. No fracture is seen. There is degenerative narrowing at the radiocarpal joint, with arthritic change at the distal radioulnar articulation. There is degenerative spurring at the ulnar styloid with a probable chronic avulsion injury. There is advanced erosive osteoarthritic change involving the distal interphalangeal joints. Marginal erosions are seen involving the heads of the third, fourth, and fifth middle phalanges, as well as the heads of the fourth and fifth proximal phalanges. Moderate osteoarthritic change is present involving the first metacarpophalangeal joint and the proximal to phalangeal joints. Moderate arthritic changes present the first carpometacarpal articulation with bony sclerosis, mild overgrowth, and subchondral cyst formation. Soft tissue edema is present throughout the fingers. IMPRESSION: 1. No acute bony at about is identified in the right hand. 2. Osteopenia with advanced osteoarthritic and erosive arthritic change as above. This has progressed from 09/06/2015. 3. Soft tissue edema is present throughout the fingers. Electronically signed by: Sheldon Oliva M.D. 09/21/2016 9:58 AM Dictated Date/Time: 09/21/2016 9:56 AM
--- NOTE | 2016-09-21 10:16 | DIAGNOSTIC IMAGING REPORT ---
LEFT HAND MIN 3 VIEWS ROUTINE CLINICAL HISTORY: Localized, secondary osteoarthritis of the hand. COMPARISON: Left hand radiographs November 09, 2014. FINDINGS: A ring is present on the fourth digit. No acute fracture is identified. There is marked joint space narrowing with osteophytosis within multiple articulations of left hand, most pronounced within multiple distal interphalangeal joints. Note is made of significant progression of marginal erosions with overhanging edges. This is most pronounced at the left second PIP joint and the DIP joints of the second and third digits. There is associated soft tissue swelling with subtle hyperdense material. IMPRESSION: Significant progression since exam of November 09, 2014. Marked joint space narrowing within multiple articulations with progression of marginal erosions with associated soft tissue swelling. Subtle areas of increased attenuation could reflect gouty tophi. The findings raise the possibility of gout. Erosive osteoarthritis, psoriasis or rheumatoid arthritis could appear similar but are considered less likely. Electronically signed by: Magen Watson M.D. 09/21/2016 10:14 AM Dictated Date/Time: 09/21/2016 10:03 AM
[2016-09-21 12:50] LABS: BLOOD UREA NITROGEN 47 mg/dl (7-18); BUN/CREATININE RATIO 24.7 (10-20); CALCIUM 9.5 mg/dl (8.5-10.1); CARBON DIOXIDE 32 mmol/L (21-32); CHLORIDE 103 mmol/L (98-107); GLUCOSE 198 mg/dl (70-99); POTASSIUM 4.2 mmol/L (3.5-5.1); SODIUM 140 mmol/L (136-145)
[2016-09-21 12:52] LABS: RHEUMATOID FACTOR < 10.0 U/mL (0-15); TOTAL IRON BINDING CAPACITY 352 mcg/dl (250-450)
[2016-09-21 15:21] LABS: ESTIMATED AVERAGE GLUCOSE 134 mg/dl; HA1C FLAG Normal (Normal)
== END | disposition home or self-care (01) ==
LOC: C.RAD1850 09:17
PROVIDERS: ATTEND Internal Medicine Rheumatology
DX: E11.618 Type 2 diabetes mellitus with other diabetic arthropathy (principal); M25.539 Pain in unspecified wrist; M19.249 Secondary osteoarthritis, unspecified hand; M19.041 Primary osteoarthritis, right hand; M85.841 Other specified disorders of bone density and structure, right hand; M19.042 Primary osteoarthritis, left hand

== ENCOUNTER → 2016-10-02 | Outpatient (CLI) | payer OTHER, MEDICARE | END | disposition home or self-care (01) | LOC: C.LAB1850 09:13 | PROVIDERS: ATTEND Internal Medicine Rheumatology | DX: M79.641 Pain in right hand (principal) ==

== ENCOUNTER → 2016-11-20 | Outpatient (CLI) | payer OTHER, MEDICARE ==
[2016-11-20 13:20] LABS: BASO % 0.7 %; BASO ABS # 0.05 K/uL (0-0.2); COMPLETE YES; EOS % 0.8 %; HEMATOCRIT 29.8 % (42-52); IG% 0.3 %; MEAN CELL VOLUME 98.3 fL (80-100); MEAN CORPUSCULAR HEMOGLOBIN 31.4 pg (25-34); MEAN CORPUSCULAR HGB CONC 31.9 g/dl (32-36); MEAN PLATELET VOLUME 11.5 fL (7.4-10.4); MONO % 13.1 %; NEUT % 54.1 %; PLATELET COUNT 186 K/uL (130-400); RED BLOOD COUNT 3.03 M/uL (4.7-6.1)
[2016-11-20 13:49] LABS: ALT/SGPT 15 U/L (12-78); AST/SGOT 13 U/L (15-37)
[2016-11-20 13:57] LABS: URIC ACID 11.6 mg/dl (2.6-7.2)
== END | disposition home or self-care (01) ==
LOC: C.LAB1850 11:34
PROVIDERS: ATTEND Internal Medicine Rheumatology
DX: E11.618 Type 2 diabetes mellitus with other diabetic arthropathy (principal); M1A.9XX0 Chronic gout, unspecified, without tophus (tophi)

== ENCOUNTER → 2016-12-06 | Outpatient (CLI) | payer OTHER, MEDICARE ==
--- NOTE | 2016-12-06 12:48 | DIAGNOSTIC IMAGING REPORT ---
L KNEE 1 OR 2 VIEWS ROUTINE CLINICAL HISTORY: Left knee pain COMPARISON: None. DISCUSSION: No acute fractures are visualized. There are moderately advanced osteoarthritic changes involving all 3 joint compartments. The findings are most severe within the medial joint compartment. There are dorsal patellar spurs. There is suprapatellar joint effusion. IMPRESSION: Moderate osteoarthritic change. Small moderate joint effusion. No acute fractures. Electronically signed by: Rodrick Story M.D. 12/06/2016 12:47 PM Dictated Date/Time: 12/06/2016 12:39 PM
--- NOTE | 2016-12-06 13:11 | DIAGNOSTIC IMAGING REPORT ---
LUMBAR SPINE 5 VIEWS CLINICAL HISTORY: Chronic low back pain. FINDINGS: Five views of the lumbar spine are compared to a study dated 02/10/2015. The skeletal structures are osteopenic. There is no radiographic evidence of fracture or malalignment. Vertebral body height and alignment are maintained throughout the lumbar spine. There is straightening of the lumbar lordosis. Large anterior osteophytes are seen throughout. The transverse and spinous processes appear intact. There is no evidence of spondylolysis. There is advanced disc space narrowing seen at L2-L3, L4-L5, and L5-S1 with associated endplate sclerosis. Mild to moderate narrowing is seen at the remaining lumbar levels. Advanced facet arthropathy is seen in the mid to lower lumbar region. The bony pelvis is intact as imaged. There is a nonobstructed abdominal bowel gas pattern. Large calcified gallstones are seen in the right upper quadrant. There is advanced atherosclerotic calcification of the abdominal aorta. IMPRESSION: 1. No acute bony abnormality is seen involving the lumbosacral spine. 2. Osteopenia and multilevel spondylosis as above. Dictated: 12/06/2016 12:45 PM Transcribed: 12/06/2016 1:11 PM [place] Electronically signed by: Sheldon Oliva M.D. 12/06/2016 1:18 PM Dictated Date/Time: 12/06/2016 12:45 PM
== END | disposition home or self-care (01) ==
LOC: C.RAD 11:50
PROVIDERS: ATTEND Family Medicine
DX: M17.12 Unilateral primary osteoarthritis, left knee (principal); M47.897 Other spondylosis, lumbosacral region; M85.88 Other specified disorders of bone density and structure, other site; M54.5 Low back pain; M25.562 Pain in left knee

== ENCOUNTER → 2017-01-30 | Outpatient (CLI) | payer OTHER, MEDICARE ==
--- NOTE | 2017-01-30 15:40 | DIAGNOSTIC IMAGING REPORT ---
CHEST 2 VIEWS ROUTINE CLINICAL HISTORY: R60.9 [id number] Shortness of [id number] COMPARISON STUDY: 06/13/2016 FINDINGS: There are postsurgical changes of a midline sternotomy. The heart is borderline enlarged. There is no overt failure. There is no focal pulmonary consolidation. There are trace bilateral pleural effusions.[ IMPRESSION: Trace bilateral pleural effusions. No evidence of focal pulmonary consolidation Electronically signed by: Rodrick Story M.D. 01/30/2017 3:39 PM Dictated Date/Time: 01/30/2017 3:38 PM
== END | disposition home or self-care (01) ==
LOC: C.RAD1850 14:58
PROVIDERS: ATTEND Physician Assistant
DX: R60.9 Edema, unspecified (principal); R06.02 Shortness of breath

== ENCOUNTER → 2017-02-04 | Outpatient (CLI) | payer OTHER, MEDICARE ==
[~2017-02-04] MED LIST changes: +ADVIN50/60 INH; +CARV25TA2 PO; +FEBU40TA PO; +FRS/40 PO; +FRS/80 PO; +GLUC1CAP33 PO; +INSDGIPEN SC; +METO5TAB25 PO; +NVLGI/PEN PO; +NVLGI/PEN SC; +POTA20TA16 PO; +PRAV40TA2 PO; +PRED15SO OPB; +PRED20TA2 PO; +TAMS0.4C38 PO
[2017-02-04 12:21] LABS: BASO % 0.5 %; BASO ABS # 0.04 K/uL (0-0.2); COMPLETE YES; EOS % 0.7 %; HEMATOCRIT 29.8 % (42-52); IG% 0.3 %; LYMPH ABS # 1.38 K/uL (1.2-3.4); MEAN CELL VOLUME 96.8 fL (80-100); MEAN CORPUSCULAR HEMOGLOBIN 29.2 pg (25-34); MEAN CORPUSCULAR HGB CONC 30.2 g/dl (32-36); MEAN PLATELET VOLUME 10.7 fL (7.4-10.4); MONO % 12.6 %; NEUT % 69.9 %; PLATELET COUNT 245 K/uL (130-400); RED BLOOD COUNT 3.08 M/uL (4.7-6.1); WHITE BLOOD COUNT 8.63 K/uL (4.8-10.8)
[2017-02-04 12:33] LABS: BLOOD UREA NITROGEN 69 mg/dl (7-18); BUN/CREATININE RATIO 32.8 (10-20); CALCIUM 8.9 mg/dl (8.5-10.1); CARBON DIOXIDE 30 mmol/L (21-32); CHLORIDE 94 mmol/L (98-107); CREATININE 2.12 mg/dl (0.60-1.40); GLUCOSE 127 mg/dl (70-99); POTASSIUM 4.1 mmol/L (3.5-5.1); SODIUM 131 mmol/L (136-145); URIC ACID 13.4 mg/dl (2.6-7.2)
[2017-02-04 12:55] LABS: ESTIMATED AVERAGE GLUCOSE 140 mg/dl; HA1C FLAG Normal (Normal)
== END | disposition home or self-care (01) ==
LOC: C.LAB1850 10:59
PROVIDERS: ATTEND Physician Assistant
DX: Z51.81 Encounter for therapeutic drug level monitoring (principal); Z79.4 Long term (current) use of insulin; R79.89 Other specified abnormal findings of blood chemistry; E11.618 Type 2 diabetes mellitus with other diabetic arthropathy; E79.0 Hyperuricemia without signs of inflammatory arthritis and tophaceous disease; M1A.9XX0 Chronic gout, unspecified, without tophus (tophi); I50.9 Heart failure, unspecified; I48.91 Unspecified atrial fibrillation

== ENCOUNTER 2017-02-05 16:00 | Inpatient (IN) | payer OTHER, MEDICARE ==
[~2017-02-05] VITALS: Ht 177.8 cm; Wt 103.4 kg
[~2017-02-05 16:00] MED LIST changes: -ADVIN50/60 INH; -CARV25TA2 PO; -FEBU40TA PO; -FRS/40 PO; -FRS/80 PO; -GLUC1CAP33 PO; -INSDGIPEN SC; -METO5TAB25 PO; -NVLGI/PEN PO; -NVLGI/PEN SC; -POTA20TA16 PO; -PRAV40TA2 PO; -PRED15SO OPB; -PRED20TA2 PO; -TAMS0.4C38 PO
--- NOTE | 2017-02-05 16:12 | EMERGENCY ROOM VISIT NOTE ---
History Report prepared by Lobo: Brigette Pablo Under the Supervision of: Dr. Jimenez Durant D.O. First contact with patient: 16:02 Chief Complaint: SHORTNESS OF BREATH Stated Complaint: SOB History of Present Illness The patient is a 86 year old male who presents to the Emergency Room with complaints of constant shortness of breath beginning 1 week ago. The patient states that he has been feeling increasingly short of breath over the last week that is worse with exertion. He complains of weight gain and leg swelling. The patient saw his PCP yesterday. He notes a history of atrial fibrillation and states that he is on blood thinners. The patient denies any fever and chest pain. Source of History: patient Onset: 1 week ago Position: other (respiratory) Quality: other (SOB) Timing: constant Associated Symptoms: No fevers, No chest pain Note: Pt complains of weight gain and leg swelling. Review of Systems See HPI for pertinent positives & negatives. A total of 10 systems reviewed and were otherwise negative. Past Medical & Surgical Medical Problems: (1) Acute on chronic systolic (congestive) heart failure (2) KATHY (acute kidney injury) (3) CHF (congestive heart failure) (4) CHF (congestive heart failure) (5) COPD (chronic obstructive pulmonary disease) (6) Diabetes (7) Elevated troponin (8) Heart disease Surgical Problems: (1) H/O heart bypass surgery Family History No pertinent family history stated. Social History Smoking Status: Former Smoker Alcohol Use: none Drug Use: none Marital Status: Occupation Status: retired Current/Historical Medications Scheduled Carvedilol (Coreg), 25 MG PO BID Febuxostat (Uloric), 40 MG PO DAILY Fluticasone Prop/Salmeterol (Advair Diskus 500/50 60 Dose), 1 PUFF INH BID Furosemide (Lasix), 40 MG PO BID Glucosamine-Chondroitin (Glucosamine & Chondroitin 500-400 mg), 1 CAP PO DAILY Insulin Aspart (Novolog Flexpen), 30 UNITS SC QAM Insulin Aspart (Novolog Flexpen), 25 UNITS SC DAILY Insulin Aspart (Novolog Flexpen), 40 UNITS PO QPM Insulin Aspart (Novolog Flexpen), SC UD Insulin Glargine (Lantus Solostar), 63 UNITS SC HS Losartan Potassium (Losartan Potassium), 12.5 MG PO DAILY Metolazone (Zaroxolyn), 5 MG PO DAILY Potassium Ext Rel (Klor-Con), 20 MEQ PO DAILY Pravastatin Sodium (Pravastatin Sodium), 40 MG PO HS Prednisolone Sodium Phosphate (Prednisolone Sodium Phosp), 1 DROP OPB DAILY Prednisone (Prednisone Tab), 20 MG PO DAILY Tamsulosin Hcl (Flomax), 0.4 MG PO DAILY Tiotropium [place] (Spiriva Handihaler), 1 CAP INH DAILY Scheduled PRN Furosemide (Lasix), 80 MG PO UD PRN for WEIGHT GAIN Allergies Coded Allergies: Sulfa Antibiotics (Verified Allergy, Intermediate, RASH, 02/05/17) Atorvastatin (Verified Adverse Reaction, Mild, MYALGIA, 02/05/17) Enalapril (Verified Adverse Reaction, Mild, COUGH, 02/05/17) Simvastatin (Verified Adverse Reaction, Mild, MYALGIA, 02/05/17) Physical Exam Vital Signs Date Time Temp Pulse Resp B/P (MAP) Pulse Ox O2 Delivery O2 Flow Rate FiO2 02/05/17 17:37 73 16 117/50 96 Room Air 02/05/17 16:49 73 02/05/17 16:30 78 16 102/58 94 Room Air 02/05/17 16:16 95 Room Air 02/05/17 16:16 95 Room Air 02/05/17 16:06 37.0 75 22 91/42 94 Room Air 02/05/17 16:03 95 Room Air Physical Exam GENERAL: Patient is awake, alert, and in no acute distress. Patient is resting comfortably and showing no signs of anxiety EYES: The conjunctivae are clear. The pupils are round and reactive. EARS, NOSE, MOUTH AND THROAT: The nose is without any evidence of any deformity. Mucous membranes are dry tongue is midline NECK: The neck is nontender and supple. RESPIRATORY: Lung sounds diminished in right lung field, rales throughout left lung field, no tachypnea or conversational dyspnea CARDIOVASCULAR: Heart sounds distant and irregular, no tachycardia appreciated , no murmurs rubs or gallops normal S1 normal S2 GASTROINTESTINAL: The abdomen is soft. Bowel sounds are present in all quadrants. Abdomen is nontender MUSCULOSKELETAL/EXTREMITIES: There is no evidence of gross deformity full range of motion is noted in the hips and shoulders SKIN: There is no obvious evidence of any rash. There are no petechiae, pallor or cyanosis noted. There was pedal edema bilaterally, no signs of cellulitis NEUROLOGIC: Patient is awake alert and oriented x3 Medical Decision & Procedures ER Provider Diagnostic Interpretation: X-ray results as stated below per interpretation by me and the radiologist. SINGLE VIEW CHEST FINDINGS: An AP, portable, upright chest radiograph is compared to study dated 01/30/2017. Correlation is made with chest CT dated 02/10/2007. The examination is degraded by portable technique and patient rotation. The patient is status post midline sternotomy. The heart is enlarged and there is atherosclerotic calcification of the thoracic aorta. The pulmonary vasculature is noncongested. Emphysema and chronic interstitial thickening are similar to previous. Faint airspace opacities are suggested throughout both lungs, with more focal opacities at the left lung base. No pneumothorax is seen. The skeletal structures are osteopenic. The bony thorax is grossly intact. IMPRESSION: 1. Cardiomegaly and emphysema. 2. Faint airspace opacities are suggested throughout both lungs comment with more focal opacities at the left lung base. Correlate clinically for evidence of a mild nonspecific infectious/inflammatory pneumonitis. Radiographic follow-up to resolution is recommended. Electronically signed by: Sheldon Oliva M.D. 02/05/2017 4:30 PM Dictated Date/Time: 02/05/2017 4:27 PM Laboratory Results 02/05/17 15:40 Red Blood Count 3.22, Mean Corpuscular Volume 96.9, Mean Corpuscular Hemoglobin 28.9, Mean Corpuscular Hemoglobin Concent 29.8, Mean Platelet Volume 10.5, Neutrophils (%) (Auto) 62.4, Lymphocytes (%) (Auto) 20.4, Monocytes (%) (Auto) 15.6, Eosinophils (%) (Auto) 0.7, Basophils (%) (Auto) 0.4, Neutrophils # (Auto ) 5.25, Lymphocytes # (Auto) 1.71, Monocytes # (Auto) 1.31, Eosinophils # (Auto ) 0.06, Basophils # (Auto) 0.03 02/05/17 15:40 Test 02/05/17 15:40 02/05/17 18:31 White Blood Count 8.40 K/uL (4.8-10.8) Red Blood Count 3.22 M/uL (4.7-6.1) Hemoglobin 9.3 g/dL (14.0-18.0) Hematocrit 31.2 % (42-52) Mean Corpuscular Volume 96.9 fL (80-100) Mean Corpuscular Hemoglobin 28.9 pg (25-34) Mean Corpuscular Hemoglobin Concent 29.8 g/dl (32-36) Platelet Count 248 K/uL (130-400) Mean Platelet Volume 10.5 fL (7.4-10.4) Neutrophils (%) (Auto) 62.4 % Lymphocytes (%) (Auto) 20.4 % Monocytes (%) (Auto) 15.6 % Eosinophils (%) (Auto) 0.7 % Basophils (%) (Auto) 0.4 % Neutrophils # (Auto) 5.25 K/uL (1.4-6.5) Lymphocytes # (Auto) 1.71 K/uL (1.2-3.4) Monocytes # (Auto) 1.31 K/uL (0.11-0.59) Eosinophils # (Auto) 0.06 K/uL (0-0.5) Basophils # (Auto) 0.03 K/uL (0-0.2) RDW Standard Deviation 56.2 fL (36.4-46.3) RDW Coefficient of Variation 16.2 % (11.5-14.5) Immature Granulocyte % (Auto) 0.5 % Immature Granulocyte # (Auto) 0.04 K/uL (0.00-0.02) Nucleated RBC Absolute Count (auto) 0.04 K/uL (0-0) Nucleated Red Blood Cells % 0.5 % Prothrombin Time 12.6 SECONDS (9.0-12.0) Prothromb Time International Ratio 1.2 (0.9-1.1) Activated Partial Thromboplast Time 28.7 SECONDS (21.0-31.0) Partial Thromboplastin Ratio 1.1 Anion Gap 5.0 mmol/L (3-11) Est Creatinine Clear Calc Drug Dose 28.0 ml/min Estimated GFR () 29.1 Estimated GFR (Non- 25.1 BUN/Creatinine Ratio 38.2 (10-20) Calcium Level 8.9 mg/dl (8.5-10.1) Total Bilirubin 0.7 mg/dl (0.2-1) Aspartate Amino Transf (AST/SGOT) 16 U/L (15-37) Alanine Aminotransferase (ALT/SGPT) 24 U/L (12-78) Alkaline Phosphatase 100 U/L (45-117) Troponin I 0.056 ng/ml (0-0.045) Pro-B-Type Natriuretic Peptide 4313 pg/ml (0-1800) Total Protein 7.4 gm/dl (6.4-8.2) Albumin 3.2 gm/dl (3.4-5.0) Globulin 4.2 gm/dl (2.5-4.0) Albumin/Globulin Ratio 0.8 (0.9-2) Urine Color YELLOW Urine Appearance CLEAR (CLEAR) Urine pH 5.0 (4.5-7.5) Urine Specific [place] 1.014 (1.000-1.030) Urine Protein NEG (NEG) Urine Glucose (UA) NEG (NEG) Urine Ketones NEG (NEG) Urine Occult Blood NEG (NEG) Urine Nitrite NEG (NEG) Urine Bilirubin NEG (NEG) Urine Urobilinogen NEG (NEG) Urine Leukocyte Esterase NEG (NEG) Laboratory results per my review. Medications Administered Medications (Trade) Dose Ordered Sig/[place]af[place] Route Start Time Stop Time Status Last Admin Dose Admin Furosemide (Lasix Inj) 20 mg NOW STAT IV 02/05/17 17:49 02/05/17 17:50 DC 02/05/17 18:21 80 MG ECG Indication: SOB/dyspnea Rate (beats per minute): 72 Rhythm: atrial fibrillation Findings: LBBB, other (no PVC, diffuse ST and T wave abnormalities) Comparison ECG Date: 06/08/16 Change: no significant change ED Course 1602: The patient was evaluated in room C12. A complete history and physical examination were performed. 1749: Lasix Inj 20mg PRN IV nausea. 1751: I discussed the patient's case with Dr. Mesa of [facility]. The patient will be evaluated for further management. 1803: Upon reevaluation, the patient is doing well. I discussed results and treatment plan with the patient. he verbalizes agreement and understanding. I spoke with Dr. Mesa of the [facility]. The patient will be evaluated for further management and care. Medical Decision Differential diagnosis: Etiologies such as infections, reactive airway disease, pneumonia, pneumothorax , COPD, CHF, cardiac ischemia, pulmonary embolism, musculoskeletal, gastrointestinal, as well as others were entertained. Nursing notes reviewed. Additional history is obtained from the patient's significant other. The patient is an 86-year-old male who presented to the emergency department for shortness of breath and weight gain. The patient was felt to have pulmonary edema on physical exam. He was treated with a small dose of Lasix in the emergency department. Because initially his blood pressure was low. His creatinine appears to have elevated slightly. Some of his pulmonary edema could be secondary to renal causes. I discussed the patient's laboratory and radiographic studies with him and his significant other. He was found have hypoglycemia and this was treated in the emergency department. I discussed his case with the on-call [facility] hospitalist group. They have agreed to evaluate the patient in the emergency department for further management and disposition. Medication Reconcilliation Current Medication List: was personally reviewed by me Blood Pressure Screening Patient's blood pressure: Low blood pressure Blood pressure disposition: Did not require urgent referral Consults Time Called: 1745 Consulting Physician: Dr. Mesa Returned Call: 1751 I discussed the patient's case with Dr. Mesa of [facility]. The patient will be evaluated for further management. Impression Primary Impression: SOB (shortness of breath) Additional Impressions: Pulmonary edema Hypoglycemia Elevated troponin Scribe Attestation The scribe's documentation has been prepared under my direction and personally reviewed by me in its entirety. I confirm that the note above accurately reflects all work, treatment, procedures, and medical decision making performed by me. Departure Information Dispostion Being Evaluated By Hospitalist Referrals Eren Turner M.D. (PCP) Patient Instructions My [facility] Problem Qualifiers Additional Impressions: Pulmonary edema Chronicity: acute Qualified Codes: J81.0 - Acute pulmonary edema
[2017-02-05] MEDS ORDERED: PRED20TA2 PO (16:30)
[2017-02-05] MEDS ORDERED: INSDGIPEN SC (16:30)
[2017-02-05] MEDS ORDERED: ADVIN50/60 INH (16:30)
[2017-02-05] MEDS ORDERED: FRS/40 PO (16:30)
[2017-02-05] MEDS ORDERED: SPRIN/30 INH (16:30)
[2017-02-05] MEDS ORDERED: PRAV40TA2 PO (16:30)
[2017-02-05] MEDS ORDERED: CZR25 PO (16:30)
[2017-02-05] MEDS ORDERED: FEBU40TA PO (16:30)
[2017-02-05] MEDS ORDERED: PRED15SO OPB (16:30)
[2017-02-05] MEDS ORDERED: TAMS0.4C38 PO (16:30)
[2017-02-05] MEDS ORDERED: POTA20TA16 PO (16:30)
[2017-02-05] MEDS ORDERED: FRS/80 PO (16:30)
[2017-02-05] MEDS ORDERED: NVLGI/PEN SC ×3 (16:30→16:32)
[2017-02-05] MEDS ORDERED: NVLGI/PEN PO (16:30)
[2017-02-05] MEDS ORDERED: GLUC1CAP33 PO (16:30)
[2017-02-05] MEDS ORDERED: CARV25TA2 PO (16:30)
[2017-02-05] MEDS ORDERED: METO5TAB25 PO (16:30)
--- NOTE | 2017-02-05 16:31 | DIAGNOSTIC IMAGING REPORT ---
SINGLE VIEW CHEST CLINICAL HISTORY: Dyspnea. FINDINGS: An AP, portable, upright chest radiograph is compared to study dated 01/30/2017. Correlation is made with chest CT dated 02/10/2007. The examination is degraded by portable technique and patient rotation. The patient is status post midline sternotomy. The heart is enlarged and there is atherosclerotic calcification of the thoracic aorta. The pulmonary vasculature is noncongested. Emphysema and chronic interstitial thickening are similar to previous. Faint airspace opacities are suggested throughout both lungs, with more focal opacities at the left lung base. No pneumothorax is seen. The skeletal structures are osteopenic. The bony thorax is grossly intact. IMPRESSION: 1. Cardiomegaly and emphysema. 2. Faint airspace opacities are suggested throughout both lungs comment with more focal opacities at the left lung base. Correlate clinically for evidence of a mild nonspecific infectious/inflammatory pneumonitis. Radiographic follow-up to resolution is recommended. Electronically signed by: Sheldon Oliva M.D. 02/05/2017 4:30 PM Dictated Date/Time: 02/05/2017 4:27 PM
[2017-02-05 16:33] LABS: BASO % 0.4 %; BASO ABS # 0.03 K/uL (0-0.2); COMPLETE YES; EOS % 0.7 %; HEMATOCRIT 31.2 % (42-52); IG% 0.5 %; LYMPH % 20.4 %; LYMPH ABS # 1.71 K/uL (1.2-3.4); MEAN CELL VOLUME 96.9 fL (80-100); MEAN CORPUSCULAR HEMOGLOBIN 28.9 pg (25-34); MEAN CORPUSCULAR HGB CONC 29.8 g/dl (32-36); MEAN PLATELET VOLUME 10.5 fL (7.4-10.4); MONO % 15.6 %; NEUT % 62.4 %; PLATELET COUNT 248 K/uL (130-400); RED BLOOD COUNT 3.22 M/uL (4.7-6.1)
[2017-02-05 16:45] LABS: INR 1.2 (0.9-1.1); PARTIAL THROMBOPLASTIN RATIO 1.1; PROTHROMBIN TIME (PATIENT) 12.6 SECONDS (9.0-12.0)
[2017-02-05 17:06] LABS: ALB/GLOB RATIO 0.8 (0.9-2); BUN/CREATININE RATIO 38.2 (10-20); CALCIUM 8.9 mg/dl (8.5-10.1); CREATININE 2.26 mg/dl (0.60-1.40); POTASSIUM 4.3 mmol/L (3.5-5.1)
[2017-02-05] MEDS ORDERED: FUROSEMIDE 40 MG/4 ML VIAL IV STA (17:49)
[2017-02-05] MEDS ORDERED: ONDANSETRON INJ 2 MG/ML 2 ML VIAL IV PRN (18:30)
[2017-02-05] MEDS ORDERED: ACETAMINOPHEN 325 MG TAB PO PRN (18:30)
[2017-02-05] MEDS ORDERED: GLUCOSE 10 TABS/TUBE PO PRN (18:45)
[2017-02-05] MEDS ORDERED: GLUCOSE 40% GEL 15 GM TUBE PO PRN (18:45)
[2017-02-05] MEDS ORDERED: GLUCAGON FOR INJ 1 MG VIAL SQ PRN (18:45)
[2017-02-05] MEDS ORDERED: DEXTROSE 50% 50 ML SYR IV PRN (18:45)
[2017-02-05 18:47] LABS: URINE APPEARANCE CLEAR (CLEAR); URINE BILIRUBIN NEG (NEG); URINE COLOR YELLOW; URINE NITRITE NEG (NEG); URINE SPECIFIC GRAVITY 1.014 (1.000-1.030); UROBILINOGEN NEG (NEG)
[2017-02-05 18:51] LABS: MANUAL MICROSCOPIC REQUIRED? NO; REVIEW REQ? NO
[2017-02-05] MEDS ORDERED: ENOXAPARIN 1 MG/KG SQ SCH (19:00)
[2017-02-05 19:05] VITALS: BP 99/58; PULSE 85; TEMP 36.9; O2SAT 95; BMI 34.7
[2017-02-05] MEDS ORDERED: FUROSEMIDE INJ 80 MG in SYRINGE 0 ML IV SCH (20:00)
[2017-02-05] MEDS: CARVEDILOL 25 MG TAB PO SCH (20:19)
[2017-02-05] MEDS: INSULIN ASPART 100 UNITS/ML 3 ML PEN SC SCH (20:20)
[2017-02-05] MEDS: PRAVASTATIN SOD 40 MG TAB PO SCH (20:22)
[2017-02-05] MEDS: FLUTICASONE/SALMETEROL (ADVAIR) 500/50 INH 14 PUFF INH SCH (20:23)
[2017-02-05] MEDS: INSULIN GLARGINE SOLOSTAR 100 UNITS/ML 3 ML PEN SC SCH (20:26)
[2017-02-05] MEDS ORDERED: ENOXAPARIN 120 MG/0.8 ML SYR SQ SCH (21:00)
--- NOTE | 2017-02-05 22:02 | History and Physical ---
History & Physical Date & Time of Service: Feb 05, 2017 at 19:05 Chief Complaint: SOB Primary Care Physician: Eren Turner M.D. History of Present Illness Source: patient, family, clinic records, hospital records 86 yo male with recent history of progressive shortness of breath over the past several weeks. The patient reports that at baseline he will get short of breath going up steps, more strenuous activity, but currently he gets short of breath just walking a few steps and now he is short of breath at rest. His weight has been trending upward. At baseline he weighs 130 lbs according to his scale at home, this morning he weighed 137 lbs. He saw a PA at Dr. Gann's office yesterday, told to increase his Lasix dose. He and his are confused about what specific dose of Lasix he should be taking. They do confirm that he typically takes the Zaroxolyn every day to help with diuresis. He is not really compliant with fluid restriction at home. He has a well known history of ischemic cardiomyopathy with an ejection fraction of 25-30%. He had a CABG in the . Patient does not note any increased leg edema, but he does feel that his abdomen is more distended. He has been making adequate amounts of urine and he has been moving his bowels. In the ED his blood pressure was initially low normal in the s, came up to 100-110 systolic. Despite feeling dyspneic, he was not short of breath. CXR showed some mild pulmonary edema. BNP was elevated compared to prior values. On EKG he was in atrial fibrillation. The patient and his family cannot recall a history of this and it cannot be found on prior notes so assuming this is new. We were asked to admit the patient for acute on chronic systolic heart failure. Past Medical/Surgical History CAD with CABG, two vessel, in 1996 Ischemic cardiomyopathy with EF 25-30% Diastolic heart failure, chronic HTN Dyslipidemia CKD stage III DM type II, insulin dependent ATILIO on CPAP COPD on chronic Prednisone Family History HTN, CAD, DM Social History Smoking Status: Former Smoker Drug Use: none Marital Status: Housing status: lives with significant other Occupational Status: retired Multi-Drug Resistant Organisms History of MDRO: No Allergies Coded Allergies: Sulfa Antibiotics (Verified Allergy, Intermediate, RASH, 02/05/17) Atorvastatin (Verified Adverse Reaction, Mild, MYALGIA, 02/05/17) Enalapril (Verified Adverse Reaction, Mild, COUGH, 02/05/17) Simvastatin (Verified Adverse Reaction, Mild, MYALGIA, 02/05/17) Home Medications Scheduled Carvedilol (Coreg), 25 MG PO BID Febuxostat (Uloric), 40 MG PO DAILY Fluticasone Prop/Salmeterol (Advair Diskus 500/50 60 Dose), 1 PUFF INH BID Furosemide (Lasix), 40 MG PO BID Glucosamine-Chondroitin (Glucosamine & Chondroitin 500-400 mg), 1 CAP PO DAILY Insulin Aspart (Novolog Flexpen), 30 UNITS SC QAM Insulin Aspart (Novolog Flexpen), 25 UNITS SC DAILY Insulin Aspart (Novolog Flexpen), 40 UNITS PO QPM Insulin Aspart (Novolog Flexpen), SC UD Insulin Glargine (Lantus Solostar), 63 UNITS SC HS Losartan Potassium (Losartan Potassium), 12.5 MG PO DAILY Metolazone (Zaroxolyn), 5 MG PO DAILY Potassium Ext Rel (Klor-Con), 20 MEQ PO DAILY Pravastatin Sodium (Pravastatin Sodium), 40 MG PO HS Prednisolone Sodium Phosphate (Prednisolone Sodium Phosp), 1 DROP OPB DAILY Prednisone (Prednisone Tab), 20 MG PO DAILY Tamsulosin Hcl (Flomax), 0.4 MG PO DAILY Tiotropium [place] (Spiriva Handihaler), 1 CAP INH DAILY Scheduled PRN Furosemide (Lasix), 80 MG PO UD PRN for WEIGHT GAIN Review of Systems Constitutional: + weakness, + fatigue, No fever, No chills, No sweats, No weight loss, No problem reported Eyes: No worsening of vision, No eye pain, No redness, No discharge, No diplopia, No problem reported ENT: No hearing loss, No unusual epistaxis, No nasal symptoms, No sore throat, No tinnitus, No dental problems, No trouble swallowing, No problem reported Respiratory: + dyspnea on exertion, + dyspnea at rest, No cough, No sputum, No wheezing, No shortness of breath, No hemoptysis, No problem reported Cardiovascular: + PND, + edema, No chest pain, No orthopnea, No claudication, No palpitations, No problem reported Abdomen: No pain, No nausea, No vomiting, No diarrhea, No constipation, No GI bleeding, No problem reported Musculoskeletal: + joint pain, No muscle pain, No swelling, No calf pain, No problem reported Genitourinary - Male: + urinary hesitancy, + urinary retention, No hematuria, No dysuria, No urinary frequency, No urinary urgency Neurologic: + weakness, No memory loss, No paralysis, No numbness/tingling, No vertigo, No balance problems, No problem reported Psychiatric: No depression symptoms, No anhedonism, No anxiety, No insomnia, No substance abuse, No problem reported Endocrine: No fatigue, No excessive thirst, No excessive urination, No problem reported Hematologic / Lymphatic: No abnormal bleeding/bruising, No clotting problems, No swollen lymph nodes, No night sweats, No problem reported Integumentary: No rash, No itch, No new/changing skin lesions, No color change , No bleeding, No problem reported Allergic / Immunologic: No environmental allergies, No seasonal allergies, No pet sensitivities, No food allergies, No hives, No frequent infections, No poor healing, No prolonged convalescence, No problem reported Physical Exam Vital Signs Date Time Temp Pulse Resp B/P (MAP) Pulse Ox O2 Delivery O2 Flow Rate FiO2 02/05/17 18:44 81 22 118/90 93 Room Air 02/05/17 17:37 73 16 117/50 96 Room Air 02/05/17 16:49 73 02/05/17 16:30 78 16 102/58 94 Room Air 02/05/17 16:16 95 Room Air 02/05/17 16:16 95 Room Air 02/05/17 16:06 37.0 75 22 91/42 94 Room Air 02/05/17 16:03 95 Room Air General Appearance: WD/WN, no apparent distress Head: normocephalic, atraumatic Eyes: normal inspection, EOMI, sclerae normal ENT: normal ENT inspection, hearing grossly normal, pharynx normal Neck: supple, no adenopathy, trachea midline, + JVD Respiratory/Chest: chest non-tender, no respiratory distress, no accessory muscle use, + rales (bibasilar) Cardiovascular: no gallop, no JVD, no murmur, normal peripheral pulses, + irregularly irregular Abdomen/GI: normal bowel sounds, non tender, soft, no organomegaly, + pertinent finding (distended, feels like fluid) Back: normal inspection, no CVA tenderness, no muscle spasm, normal range of motion Extremities/Musculoskelatal: normal inspection, no calf tenderness, normal capillary refill, normal range of motion, pelvis stable, + pedal edema (+1 bilaterally) Neurologic/Psych: value analyst II-XII nml as tested, no motor/sensory deficits, alert, normal mood/affect, normal reflexes, oriented x 3 Skin: normal color, warm/dry, no rash Diagnostics Laboratory Results Results Past 24 Hours Test 02/05/17 15:40 02/05/17 17:13 02/05/17 17:33 02/05/17 17:45 Range/Units White Blood Count 8.40 4.8-10.8 K/uL Red Blood Count 3.22 4.7-6.1 M/uL Hemoglobin 9.3 14.0-18.0 g/dL Hematocrit 31.2 42-52 % Mean Corpuscular Volume 96.9 80-100 fL Mean Corpuscular Hemoglobin 28.9 25-34 pg Mean Corpuscular Hemoglobin Concent 29.8 32-36 g/dl Platelet Count 248 130-400 K/uL Mean Platelet Volume 10.5 7.4-10.4 fL Neutrophils (%) (Auto) 62.4 % Lymphocytes (%) (Auto) 20.4 % Monocytes (%) (Auto) 15.6 % Eosinophils (%) (Auto) 0.7 % Basophils (%) (Auto) 0.4 % Neutrophils # (Auto) 5.25 1.4-6.5 K/uL Lymphocytes # (Auto) 1.71 1.2-3.4 K/uL Monocytes # (Auto) 1.31 0.11-0.59 K/uL Eosinophils # (Auto) 0.06 0-0.5 K/uL Basophils # (Auto) 0.03 0-0.2 K/uL RDW Standard Deviation 56.2 36.4-46.3 fL RDW Coefficient of Variation 16.2 11.5-14.5 % Immature Granulocyte % (Auto) 0.5 % Immature Granulocyte # (Auto) 0.04 0.00-0.02 K/uL Nucleated RBC Absolute Count (auto) 0.04 0-0 K/uL Nucleated Red Blood Cells % 0.5 % Prothrombin Time 12.6 9.0-12.0 SECONDS Prothromb Time International Ratio 1.2 0.9-1.1 Activated Partial Thromboplast Time 28.7 21.0-31.0 SECONDS Partial Thromboplastin Ratio 1.1 Sodium Level 131 136-145 mmol/L Potassium Level 4.3 3.5-5.1 mmol/L Chloride Level 95 98-107 mmol/L Carbon Dioxide Level 31 21-32 mmol/L Anion Gap 5.0 3-11 mmol/L Blood Urea Nitrogen 86 7-18 mg/dl Creatinine 2.26 0.60-1.40 mg/dl Est Creatinine Clear Calc Drug Dose 28.0 ml/min Estimated GFR () 29.1 Estimated GFR (Non- 25.1 BUN/Creatinine Ratio 38.2 10-20 Random Glucose 53 70-99 mg/dl Calcium Level 8.9 8.5-10.1 mg/dl Total Bilirubin 0.7 0.2-1 mg/dl Aspartate Amino Transf (AST/SGOT) 16 15-37 U/L Alanine Aminotransferase (ALT/SGPT) 24 12-78 U/L Alkaline Phosphatase 100 45-117 U/L Troponin I 0.056 0-0.045 ng/ml Pro-B-Type Natriuretic Peptide 4313 0-1800 pg/ml Total Protein 7.4 6.4-8.2 gm/dl Albumin 3.2 3.4-5.0 gm/dl Globulin 4.2 2.5-4.0 gm/dl Albumin/Globulin Ratio 0.8 0.9-2 Bedside Glucose 49 67 78 70-99 mg/dl Test 02/05/17 18:31 02/05/17 18:41 Range/Units Urine Color YELLOW Urine Appearance CLEAR CLEAR Urine pH 5.0 4.5-7.5 Urine Specific [place] 1.014 1.000-1.030 Urine Protein NEG NEG Urine Glucose (UA) NEG NEG Urine Ketones NEG NEG Urine Occult Blood NEG NEG Urine Nitrite NEG NEG Urine Bilirubin NEG NEG Urine Urobilinogen NEG NEG Urine Leukocyte Esterase NEG NEG Bedside Glucose 80 70-99 mg/dl Diagnostic Radiology CXR: mild pulmonary edema bilaterally EKG atrial fibrillation, rate controlled, no acute ischemia Impression Assessment and Plan 86 yo male presents with progressive dyspnea and weight gain over the past several weeks consistent with acute on chronic systolic heart failure - Acute on chronic systolic and diastolic heart failure weight is up by 7-8 lbs from baseline, edema in legs, appears to also have a degree of ascites, some pulmonary edema Lasix 80mg IV BID, first dose tonight close monitoring of I/O's, will place vuong, fluid restrict to 1500cc/day, daily weights patient with low normal BP, may not tolerate aggressive diuresis may need to consider Dobutamine if he does not respond to Lasix alone will check echocardiogram tomorrow consult cardiology for their recommendations hold ARB in setting of KATHY on CKD - New atrial fibrillation, rate controlled continue Coreg high risk for stroke, discussed Lovenox dosing with pharmacy, give 1mg/kg every 24 hours again, ask for cardiology recommendations tomorrow - KATHY on CKD: Cr up to 2.2 and BUN elevated despite having volume overload could be a degree of cardiorenal syndrome concerned that if cardiac output not sufficient, may not perfuse kidneys well enough to diurese again, dobutamine may be required hold Losartan, repeat BMP tomorrow electrolytes stable - DM, insulin dependent, with hypoglycemia typically on Lantus 63 units HS, will decrease to 30 units Novolog SS, diabetic diet - ATILIO: ordered CPAP - COPD: no wheezing on exam continue Advair, Spiriva, Prednisone DVT prophylaxis: Lovenox Level 5, DNR, discussed with patient and and daughter at the bedside Level of Care Telemetry Resuscitation Status DO NOT RESUSCITATE VTE Prophylaxis VTE Risk Assessment Done? Y/N: Yes Risk Level: High Given or contraindicated: Enoxaparin (Lovenox)SQ Additional Copies To Jimenez Gann M.D.; Eren Turner M.D.
[2017-02-05 22:16] VITALS: PULSE 80; O2SAT 98
[2017-02-05 23:27] VITALS: BP 120/78; PULSE 85; TEMP 36.6; O2SAT 98
[2017-02-06] VITALS (7 sets, daily range): BP systolic 100–129; BP diastolic 56–70; PULSE 85–96; TEMP 36.4–36.7; O2SAT 91–99; Ht 177.8 cm; Wt 103.4 kg
[2017-02-06 07:03] LABS: BASO % 0.3 %; BASO ABS # 0.03 K/uL (0-0.2); COMPLETE YES; HEMATOCRIT 33.5 % (42-52); IG% 0.2 %; LYMPH % 18.9 %; LYMPH ABS # 1.86 K/uL (1.2-3.4); MEAN CELL VOLUME 95.4 fL (80-100); MEAN CORPUSCULAR HEMOGLOBIN 28.5 pg (25-34); MEAN CORPUSCULAR HGB CONC 29.9 g/dl (32-36); MEAN PLATELET VOLUME 10.8 fL (7.4-10.4); MONO % 15.5 %; NEUT % 64.1 %; PLATELET COUNT 234 K/uL (130-400); RED BLOOD COUNT 3.51 M/uL (4.7-6.1); WHITE BLOOD COUNT 9.83 K/uL (4.8-10.8)
[2017-02-06 07:40] LABS: BUN/CREATININE RATIO 40.4 (10-20); CALCIUM 9.3 mg/dl (8.5-10.1); CREATININE 2.08 mg/dl (0.60-1.40); MAGNESIUM 2.1 mg/dl (1.8-2.4); POTASSIUM 3.5 mmol/L (3.5-5.1)
[2017-02-06] MEDS: TIOTROPIUM BROMIDE 5 PUFF/90 MCG INH INH SCH (08:07)
[2017-02-06] MEDS: FLUTICASONE/SALMETEROL (ADVAIR) 500/50 INH 14 PUFF INH SCH ×2 (08:07→20:19)
[2017-02-06] MEDS: FUROSEMIDE INJ 80 MG in SYRINGE 0 ML IV SCH ×2 (08:09→17:17)
[2017-02-06] MEDS: POTASSIUM CHLORIDE 20 MEQ TABCR PO SCH ×2 (08:09→20:20)
[2017-02-06] MEDS: TAMSULOSIN HCL 0.4 MG CAP PO SCH (08:10)
[2017-02-06] MEDS: CARVEDILOL 25 MG TAB PO SCH ×2 (08:10→20:21)
[2017-02-06] MEDS: INSULIN ASPART 100 UNITS/ML 3 ML PEN SC SCH ×5 (08:11→21:08)
--- NOTE | 2017-02-06 09:55 | Cardiology Consultation ---
Cardiology Consultation Date of Consultation: Feb 06, 2017. Requesting Physician: Dr. Mesa Attending Physician: Dr. Gann Reason for Consultation: Acute on chronic systolic CHF Pt evaluation today including: conversation w/ patient, conversation w/ family , physical exam, chart review, lab review, review of studies, review of inpatient medication list, conversation w/ attending History of Present Illness Mr. Rivera is an 86-year-old male with a past medical history significant for coronary artery disease (CABG x2 1996), ischemic cardiomyopathy (EF 25-30%), chronic combined systolic and diastolic CHF, severe COPD with history of tobacco abuse, mild aortic stenosis, hypertension, hypercholesterolemia, and chronic kidney disease who presented to the ED yesterday with complaints of worsening shortness of breath. The patient has noted progressively worsening shortness of breath with exertion over the last few months. Over the last week, he has noted a 7 lb weight gain as well. He called into the cardiology office last week with his symptoms, and his Lasix was switched to Bumex 4 mg in the morning. He was continued on Metolazone 5 mg daily. He was then seen acutely on Saturday in the outpatient setting. At that time, he was noted to be in atrial fibrillation. His Carvedilol was increased to 25 mg BID for rate control, and he was initiated on Eliquis 2.5 mg BID for thromboembolic prophylaxis. At that time, he reported continued weight gain and shortness of breath despite switching to Bumex, therefore, he was switched back to Lasix 80 mg BID. His shortness of breath continued to worsen yesterday, and he was unable to walk even a few feet due to the shortness of breath. He therefore presented to the ED for further evaluation. Chest x-ray shows faint airspace opacities at the left lung base. Initial labs showed hgb 9.3, creatinine 2.26, Pro-BNP 4313, troponin 0.056. He was admitted for CHF, and has been treated with IV Lasix with 1.6 L output. His creatinine this morning improved to 2.08. The patient is being seen in his room at 238. He denies shortness of breath currently, but he reports that he has not been up ambulating at all. He denies orthopnea or PND. He notes chronic mild left lower extremity edema following his CABG, which has been stable in nature. He denies chest pain or other anginal type symptoms. He denies palpitations, lightheadedness, or presyncope. He denies abnormal bleeding such as melena, hematochezia, or hematuria. He denies cerebrovascular symptoms. He denies cough. He has had some mild wheezing. He denies fevers or chills. He denies GI or symptoms. Review of Systems: As noted in HPI. All other 10 point ROS reviewed and otherwise negative. Past Medical/Surgical History Surgical History: 1. CABG x2 1996 2. Uvulopalatopharyngoplasty 3. Right total knee arthroplasty Family History Noncontributory given his own disease. Social History Smoking Status: Former Smoker History of Alcohol Use: Yes (1 BEER PER DAY. ) Quit smoking 1 year ago, but previously smoked for 75 years. He drinks 1 alcoholic beverage daily. He denies drug use. Allergies Coded Allergies: Sulfa Antibiotics (Verified Allergy, Intermediate, RASH, 02/05/17) Atorvastatin (Verified Adverse Reaction, Mild, MYALGIA, 02/05/17) Enalapril (Verified Adverse Reaction, Mild, COUGH, 02/05/17) Simvastatin (Verified Adverse Reaction, Mild, MYALGIA, 02/05/17) Medications Current Inpatient Medications Medications (Trade) Dose Ordered Sig/Dafne Route Start Time Stop Time Status Last Admin Dose Admin Acetaminophen (Tylenol Tab) 650 mg Q4H PRN PO 02/05/17 18:30 03/07/17 18:29 Ondansetron HCl (Zofran Inj) 4 mg Q6H PRN IV 02/05/17 18:30 03/07/17 18:29 Carvedilol (Coreg Tab) 25 mg BID PO 02/05/17 21:00 03/07/17 20:59 02/06/17 08:10 25 MG Salmeterol Xinafoate/ Fluticasone (Advair Diskus 500/50 Inh) 1 puff BID INH 02/05/17 21:00 03/07/17 20:59 02/06/17 08:07 1 PUFF Insulin Glargine (Lantus Solostar Pen) 30 units HS SC 02/05/17 21:00 03/07/17 20:59 02/05/17 20:26 30 UNITS Pravastatin Sodium (Pravachol Tab) 40 mg HS PO 02/05/17 21:00 1/11/18 20:59 02/05/17 20:22 40 MG Prednisone (PredniSONE TAB) 20 mg DAILY PO 02/06/17 09:00 03/08/17 08:59 02/06/17 08:09 20 MG Tamsulosin HCl (Flomax Cap) 0.4 mg DAILY PO 02/06/17 09:00 03/08/17 08:59 02/06/17 08:10 0.4 MG Tiotropium [place] (Spiriva Handihaler Inhaler) 1 puff DAILY INH 02/06/17 09:00 03/08/17 08:59 02/06/17 08:07 1 PUFF Insulin Aspart (novoLOG ASPART) SLIDING SCALE G... ACHS SC 02/05/17 21:00 03/07/17 20:59 Glucose (Glucose 40% Gel) 15-30 GRAMS 15 GRAMS... UD PRN PO 02/05/17 18:45 03/07/17 18:44 Glucose (Glucose Chew Tab) 4-8 Tablets 4 Tabl... UD PRN PO 02/05/17 18:45 03/07/17 18:44 Dextrose (Dextrose 50% 50ML Syringe) 25-50ML OF 50% DW IV FOR... UD PRN IV 02/05/17 18:45 03/07/17 18:44 Glucagon (Glucagon Inj) 1 mg UD PRN SQ 02/05/17 18:45 03/07/17 18:44 Enoxaparin Sodium (Lovenox Inj) 111 mg HS SQ 02/05/17 21:00 03/07/17 20:59 02/05/17 20:27 111 MG Furosemide 80 mg/ Syringe 8 ml @ 4 mls/min BID17 IV 02/06/17 09:00 03/08/17 08:59 02/06/17 08:09 4 MLS/MIN Potassium Chloride (Klor-Con Tab) 20 meq BID PO 02/06/17 09:00 03/08/17 08:59 02/06/17 08:09 20 MEQ Physical Exam Vital Signs Past 12 Hours Date Time Temp Pulse Resp B/P (MAP) Pulse Ox O2 Delivery O2 Flow Rate FiO2 02/06/17 08:00 99 Nasal Cannula 2.0 02/06/17 07:39 36.7 89 20 129/70 (89) 99 Room Air 02/06/17 04:00 CPAP 2.0 02/06/17 03:10 36.5 85 19 101/60 (74) 91 Room Air 02/06/17 00:00 CPAP 2.0 02/05/17 23:27 36.6 85 18 120/78 (92) 98 BiPAP 85 02/05/17 22:16 80 98 2.0 Constitutional: Alert, oriented, in no acute distress HEENT: Head is atraumatic and normocephalic. EOMs intact. Sclera anicteric. Face is symmetric. No perioral cyanosis. Mucous membranes moist. Neck: Supple, jugular venous pressure difficult to asses given thick neck Pulmonary: Normal respiratory effort, bibasilar crackles Cardiac: Irregularly irregular, normal S1 and S2, no gallops, no rubs, 1/6 basal systolic murmur Extremities: Trace left lower extremity edema. No clubbing or cyanosis. Pulses intact. Abdomen: Obese. Normal bowel sounds, soft, non-tender, no abdominal mass palpated Skin: Chronic venous stasis skin changes of bilateral lower extremities Neurological: Oriented to person, place, and time Data Laboratory Results: Last 24 Hours Test 02/05/17 15:40 02/05/17 17:13 02/05/17 17:33 02/05/17 17:45 White Blood Count 8.40 K/uL Red Blood Count 3.22 M/uL Hemoglobin 9.3 g/dL Hematocrit 31.2 % Mean Corpuscular Volume 96.9 fL Mean Corpuscular Hemoglobin 28.9 pg Mean Corpuscular Hemoglobin Concent 29.8 g/dl Platelet Count 248 K/uL Mean Platelet Volume 10.5 fL Neutrophils (%) (Auto) 62.4 % Lymphocytes (%) (Auto) 20.4 % Monocytes (%) (Auto) 15.6 % Eosinophils (%) (Auto) 0.7 % Basophils (%) (Auto) 0.4 % Neutrophils # (Auto) 5.25 K/uL Lymphocytes # (Auto) 1.71 K/uL Monocytes # (Auto) 1.31 K/uL Eosinophils # (Auto) 0.06 K/uL Basophils # (Auto) 0.03 K/uL RDW Standard Deviation 56.2 fL RDW Coefficient of Variation 16.2 % Immature Granulocyte % (Auto) 0.5 % Immature Granulocyte # (Auto) 0.04 K/uL Nucleated RBC Absolute Count (auto) 0.04 K/uL Nucleated Red Blood Cells % 0.5 % Prothrombin Time 12.6 SECONDS Prothromb Time International Ratio 1.2 Activated Partial Thromboplast Time 28.7 SECONDS Partial Thromboplastin Ratio 1.1 Sodium Level 131 mmol/L Potassium Level 4.3 mmol/L Chloride Level 95 mmol/L Carbon Dioxide Level 31 mmol/L Anion Gap 5.0 mmol/L Blood Urea Nitrogen 86 mg/dl Creatinine 2.26 mg/dl Est Creatinine Clear Calc Drug Dose 28.0 ml/min Estimated GFR () 29.1 Estimated GFR (Non- 25.1 BUN/Creatinine Ratio 38.2 Random Glucose 53 mg/dl Calcium Level 8.9 mg/dl Total Bilirubin 0.7 mg/dl Aspartate Amino Transf (AST/SGOT) 16 U/L Alanine Aminotransferase (ALT/SGPT) 24 U/L Alkaline Phosphatase 100 U/L Troponin I 0.056 ng/ml Pro-B-Type Natriuretic Peptide 4313 pg/ml Total Protein 7.4 gm/dl Albumin 3.2 gm/dl Globulin 4.2 gm/dl Albumin/Globulin Ratio 0.8 Bedside Glucose 49 mg/dl 67 mg/dl 78 mg/dl Test 02/05/17 18:31 02/05/17 18:41 02/05/17 20:05 02/06/17 06:26 Urine Color YELLOW Urine Appearance CLEAR Urine pH 5.0 Urine Specific [place] 1.014 Urine Protein NEG Urine Glucose (UA) NEG Urine Ketones NEG Urine Occult Blood NEG Urine Nitrite NEG Urine Bilirubin NEG Urine Urobilinogen NEG Urine Leukocyte Esterase NEG Bedside Glucose 80 mg/dl 100 mg/dl White Blood Count 9.83 K/uL Red Blood Count 3.51 M/uL Hemoglobin 10.0 g/dL Hematocrit 33.5 % Mean Corpuscular Volume 95.4 fL Mean Corpuscular Hemoglobin 28.5 pg Mean Corpuscular Hemoglobin Concent 29.9 g/dl Platelet Count 234 K/uL Mean Platelet Volume 10.8 fL Neutrophils (%) (Auto) 64.1 % Lymphocytes (%) (Auto) 18.9 % Monocytes (%) (Auto) 15.5 % Eosinophils (%) (Auto) 1.0 % Basophils (%) (Auto) 0.3 % Neutrophils # (Auto) 6.30 K/uL Lymphocytes # (Auto) 1.86 K/uL Monocytes # (Auto) 1.52 K/uL Eosinophils # (Auto) 0.10 K/uL Basophils # (Auto) 0.03 K/uL RDW Standard Deviation 55.7 fL RDW Coefficient of Variation 16.1 % Immature Granulocyte % (Auto) 0.2 % Immature Granulocyte # (Auto) 0.02 K/uL Sodium Level 132 mmol/L Potassium Level 3.5 mmol/L Chloride Level 93 mmol/L Carbon Dioxide Level 33 mmol/L Anion Gap 6.0 mmol/L Blood Urea Nitrogen 84 mg/dl Creatinine 2.08 mg/dl Est Creatinine Clear Calc Drug Dose 30.8 ml/min Estimated GFR () 32.2 Estimated GFR (Non- 27.8 BUN/Creatinine Ratio 40.4 Random Glucose 51 mg/dl Calcium Level 9.3 mg/dl Magnesium Level 2.1 mg/dl Test 02/06/17 07:07 02/06/17 08:41 Bedside Glucose 74 mg/dl CXR: 1. Cardiomegaly and emphysema. 2. Faint airspace opacities are suggested throughout both lungs comment with more focal opacities at the left lung base. Correlate clinically for evidence of a mild nonspecific infectious/inflammatory pneumonitis. Radiographic follow- up to resolution is recommended. EKG: Atrial fibrillation with a ventricular response rate of 72 bpm. Nonspecific intraventricular conduction block. Nonspecific T wave abnormality. Repeat EKG with similar findings. Telemetry reviewed: Atrial fibrillation with a ventricular response rate in the 80-90s. PVCs. Assessment & Plan ASSESSMENT/PLAN: 1. Acute on chronic combined systolic and diastolic CHF: Although his CXR shows no evidence of pulmonary vascular congestion, his clinic presentation is consistent with acute CHF with his worsening shortness of breath, weight gain, and elevated Pro-BNP. His creatinine is also improving with diuresis. Recommend continued diuresis with IV Lasix 80 mg BID with close monitoring of his renal function. Continue strict monitoring of I's and O's. Echo is pending. 2. Atrial fibrillation: He appears to have persistent atrial fibrillation. His rate is well controlled with his current therapy. Continue Carvedilol 25 mg BID. Recommend that his Lovenox be switched to Eliquis 2.5 mg BID, which can be continued as an outpatient. Once he has been anticoagulated for 3 weeks, will consider initiating an antiarrhythmic with subsequent cardioversion if needed. This can be done in the outpatient setting, though. 3. Coronary artery disease S/P CABG x2: He denies angina. EKG shows no acute ischemic changes. His mildly elevated troponin is likely secondary to demand ischemia in the setting of CHF and chronic kidney disease. His aspirin was recently stopped due to the diagnosis of atrial fibrillation and need for anticoagulation therapy in the setting of chronic anemia. Will continue to hold aspirin therapy for now and consider restarting as an outpatient. Continue statin therapy and beta eladio therapy. Thank you for allowing us to see this patient in consultation. The patient was discussed with Dr. Gann, who will also be in to see the patient today.
[2017-02-06] MEDS ORDERED: NURSING DECISION MEDICATION ORDER SCH (11:00)
[2017-02-06] MEDS ORDERED: APIXABAN 2.5 MG TAB PO ONE (11:04)
--- NOTE | 2017-02-06 11:24 | Hospitalist Progress Note ---
Hospitalist Progress Note Date of Service Feb 06, 2017. (Winter Lazaro ., PA-C) Subjective Pt evaluation today including: conversation w/ patient, conversation w/ family (), physical exam, lab review, review of studies, review of inpatient medication list Voiding: vuong catheter in place (draining clear/yellow urine ) Patient sitting in bedside chair. No signs of acute distress. Eating and drinking OK. +SOB, but significantly improved since admission. Discussed anticoagulation again with patient as cardiology recommends Eliquis- patient in agreement- per has samples at home given by cardiology- took first dose on 02/05. Patient denies any fever, chills, sweats, lightheadedness, dizziness, vision changes, CP, palpitations, edema, wheezing, cough, abdominal pain, nausea, vomiting, diarrhea, urinary symptoms, melena, numbness/tingling, weakness, muscle/joint pain, anxiety/depression, active bleeding, or new skin discoloration/changes. (Winter Lazaro ., PA-C) Medications Current Inpatient Medications Medications (Trade) Dose Ordered Sig/Dafne Route Start Time Stop Time Status Last Admin Dose Admin Acetaminophen (Tylenol Tab) 650 mg Q4H PRN PO 02/05/17 18:30 03/07/17 18:29 Ondansetron HCl (Zofran Inj) 4 mg Q6H PRN IV 02/05/17 18:30 03/07/17 18:29 Carvedilol (Coreg Tab) 25 mg BID PO 02/05/17 21:00 03/07/17 20:59 02/06/17 08:10 25 MG Salmeterol Xinafoate/ Fluticasone (Advair Diskus 500/50 Inh) 1 puff BID INH 02/05/17 21:00 03/07/17 20:59 02/06/17 08:07 1 PUFF Insulin Glargine (Lantus Solostar Pen) 30 units HS SC 02/05/17 21:00 03/07/17 20:59 02/05/17 20:26 30 UNITS Pravastatin Sodium (Pravachol Tab) 40 mg HS PO 02/05/17 21:00 03/07/17 20:59 02/05/17 20:22 40 MG Prednisone (PredniSONE TAB) 20 mg DAILY PO 02/06/17 09:00 03/08/17 08:59 02/06/17 08:09 20 MG Tamsulosin HCl (Flomax Cap) 0.4 mg DAILY PO 02/06/17 09:00 03/08/17 08:59 02/06/17 08:10 0.4 MG Tiotropium [place] (Spiriva Handihaler Inhaler) 1 puff DAILY INH 02/06/17 09:00 03/08/17 08:59 02/06/17 08:07 1 PUFF Insulin Aspart (novoLOG ASPART) SLIDING SCALE G... ACHS SC 02/05/17 21:00 03/07/17 20:59 Glucose (Glucose 40% Gel) 15-30 GRAMS 15 GRAMS... UD PRN PO 02/05/17 18:45 03/07/17 18:44 Glucose (Glucose Chew Tab) 4-8 Tablets 4 Tabl... UD PRN PO 02/05/17 18:45 03/07/17 18:44 Dextrose (Dextrose 50% 50ML Syringe) 25-50ML OF 50% DW IV FOR... UD PRN IV 02/05/17 18:45 03/07/17 18:44 Glucagon (Glucagon Inj) 1 mg UD PRN SQ 02/05/17 18:45 03/07/17 18:44 Furosemide 80 mg/ Syringe 8 ml @ 4 mls/min BID17 IV 02/06/17 09:00 03/08/17 08:59 02/06/17 08:09 4 MLS/MIN Potassium Chloride (Klor-Con Tab) 20 meq BID PO 02/06/17 09:00 03/08/17 08:59 02/06/17 08:09 20 MEQ Miscellaneous Information (Nursing Decision Medication Order) 1 ea UD N/A 02/06/17 11:00 03/08/17 10:59 UNV Apixaban (Eliquis Tab) 2.5 mg BID PO 02/06/17 21:00 03/08/17 20:59 UNV Apixaban (Eliquis Tab) 2.5 mg 1104 ONCE PO 02/06/17 11:04 02/06/17 11:05 UNV (Winter Lazaro, TRENA) Objective Vital Signs Date Time Temp Pulse Resp B/P (MAP) Pulse Ox O2 Delivery O2 Flow Rate FiO2 02/06/17 08:00 99 Nasal Cannula 2.0 02/06/17 07:39 36.7 89 20 129/70 (89) 99 Room Air 02/06/17 04:00 CPAP 2.0 02/06/17 03:10 36.5 85 19 101/60 (74) 91 Room Air 02/06/17 00:00 CPAP 2.0 02/05/17 23:27 36.6 85 18 120/78 (92) 98 BiPAP 85 02/05/17 22:16 80 98 2.0 02/05/17 19:05 36.9 85 24 99/58 95 Room Air 02/05/17 18:44 81 22 118/90 93 Room Air 02/05/17 17:37 73 16 117/50 96 Room Air 02/05/17 16:49 73 02/05/17 16:30 78 16 102/58 94 Room Air 02/05/17 16:16 95 Room Air 02/05/17 16:16 95 Room Air 02/05/17 16:06 37.0 75 22 91/42 94 Room Air 02/05/17 16:03 95 Room Air (Winter Lazaro, PA-C) Physical Exam General Appearance: no apparent distress, + pertinent finding (O2 NC ) Eyes: normal inspection, PERRL ENT: hearing grossly normal Neck: supple Respiratory/Chest: no respiratory distress, no accessory muscle use, + decreased breath sounds (throughout all lung alegria ), + crackles (bilateral lung bases ) Cardiovascular: + irregularly irregular (rate controlled ) Abdomen: normal bowel sounds, non tender, + distended Extremities: no pedal edema, no calf tenderness, + pertinent finding (chronic venous stasis changes to bilateral lower extremities noted ) Neurologic/Psychiatric: alert, normal mood/affect, oriented x 3 Skin: normal color, warm/dry, no rash (Winter Lazaro, PA-C) Laboratory Results Last 24 Hours Test 02/05/17 15:40 02/05/17 17:13 02/05/17 17:33 02/05/17 17:45 White Blood Count 8.40 K/uL Red Blood Count 3.22 M/uL Hemoglobin 9.3 g/dL Hematocrit 31.2 % Mean Corpuscular Volume 96.9 fL Mean Corpuscular Hemoglobin 28.9 pg Mean Corpuscular Hemoglobin Concent 29.8 g/dl Platelet Count 248 K/uL Mean Platelet Volume 10.5 fL Neutrophils (%) (Auto) 62.4 % Lymphocytes (%) (Auto) 20.4 % Monocytes (%) (Auto) 15.6 % Eosinophils (%) (Auto) 0.7 % Basophils (%) (Auto) 0.4 % Neutrophils # (Auto) 5.25 K/uL Lymphocytes # (Auto) 1.71 K/uL Monocytes # (Auto) 1.31 K/uL Eosinophils # (Auto) 0.06 K/uL Basophils # (Auto) 0.03 K/uL RDW Standard Deviation 56.2 fL RDW Coefficient of Variation 16.2 % Immature Granulocyte % (Auto) 0.5 % Immature Granulocyte # (Auto) 0.04 K/uL Nucleated RBC Absolute Count (auto) 0.04 K/uL Nucleated Red Blood Cells % 0.5 % Prothrombin Time 12.6 SECONDS Prothromb Time International Ratio 1.2 Activated Partial Thromboplast Time 28.7 SECONDS Partial Thromboplastin Ratio 1.1 Sodium Level 131 mmol/L Potassium Level 4.3 mmol/L Chloride Level 95 mmol/L Carbon Dioxide Level 31 mmol/L Anion Gap 5.0 mmol/L Blood Urea Nitrogen 86 mg/dl Creatinine 2.26 mg/dl Est Creatinine Clear Calc Drug Dose 28.0 ml/min Estimated GFR () 29.1 Estimated GFR (Non- 25.1 BUN/Creatinine Ratio 38.2 Random Glucose 53 mg/dl Calcium Level 8.9 mg/dl Total Bilirubin 0.7 mg/dl Aspartate Amino Transf (AST/SGOT) 16 U/L Alanine Aminotransferase (ALT/SGPT) 24 U/L Alkaline Phosphatase 100 U/L Troponin I 0.056 ng/ml Pro-B-Type Natriuretic Peptide 4313 pg/ml Total Protein 7.4 gm/dl Albumin 3.2 gm/dl Globulin 4.2 gm/dl Albumin/Globulin Ratio 0.8 Bedside Glucose 49 mg/dl 67 mg/dl 78 mg/dl Test 02/05/17 18:31 02/05/17 18:41 02/05/17 20:05 02/06/17 06:26 Urine Color YELLOW Urine Appearance CLEAR Urine pH 5.0 Urine Specific [place] 1.014 Urine Protein NEG Urine Glucose (UA) NEG Urine Ketones NEG Urine Occult Blood NEG Urine Nitrite NEG Urine Bilirubin NEG Urine Urobilinogen NEG Urine Leukocyte Esterase NEG Bedside Glucose 80 mg/dl 100 mg/dl White Blood Count 9.83 K/uL Red Blood Count 3.51 M/uL Hemoglobin 10.0 g/dL Hematocrit 33.5 % Mean Corpuscular Volume 95.4 fL Mean Corpuscular Hemoglobin 28.5 pg Mean Corpuscular Hemoglobin Concent 29.9 g/dl Platelet Count 234 K/uL Mean Platelet Volume 10.8 fL Neutrophils (%) (Auto) 64.1 % Lymphocytes (%) (Auto) 18.9 % Monocytes (%) (Auto) 15.5 % Eosinophils (%) (Auto) 1.0 % Basophils (%) (Auto) 0.3 % Neutrophils # (Auto) 6.30 K/uL Lymphocytes # (Auto) 1.86 K/uL Monocytes # (Auto) 1.52 K/uL Eosinophils # (Auto) 0.10 K/uL Basophils # (Auto) 0.03 K/uL RDW Standard Deviation 55.7 fL RDW Coefficient of Variation 16.1 % Immature Granulocyte % (Auto) 0.2 % Immature Granulocyte # (Auto) 0.02 K/uL Sodium Level 132 mmol/L Potassium Level 3.5 mmol/L Chloride Level 93 mmol/L Carbon Dioxide Level 33 mmol/L Anion Gap 6.0 mmol/L Blood Urea Nitrogen 84 mg/dl Creatinine 2.08 mg/dl Est Creatinine Clear Calc Drug Dose 30.8 ml/min Estimated GFR () 32.2 Estimated GFR (Non- 27.8 BUN/Creatinine Ratio 40.4 Random Glucose 51 mg/dl Calcium Level 9.3 mg/dl Magnesium Level 2.1 mg/dl Test 02/06/17 07:07 02/06/17 09:40 Bedside Glucose 74 mg/dl Troponin I 0.076 ng/ml (Winter Lazaro, PINAC) Assessment and Plan 86 yo male presents with progressive dyspnea and weight gain over the past several weeks consistent with acute on chronic systolic heart failure Acute on chronic systolic and diastolic heart failure: - Admitted to [facility] for cardiac monitoring - Trend cardiac enzymes- mildly elevated, likely secondary to demand ischemia - EKG w/out acute ischemic changes; EKG QAM and PRN for chest pain - Lasix 80mg IV BID - Monitor I&Os- Vuong placed and daily weights - ECHO pending - Cardiology consulted, appreciate recommendations New atrial fibrillation, rate controlled; - Continue Coreg 25 mg BID - Lovenox 1 mg/kg switched to Eliquis 2.5 mg BID per cardiology recommendations - Cardiology following 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- baseline Cr 1.5-1.8- IMPROVING: - Hold nephrotoxic agents (Losartan) and renally dose medications as appropriate - Follow PRP CAD s/p CABG x2: - Continue Coreg, Pravastatin 40 mg HS - ASA held at admission due to chronic anemia and starting anticoagulation for a.fib- resume at discharge per cardiology if H&H stable DM, insulin dependent, with hypoglycemia: - Typically on Lantus 63 units HS, decreased to 30 units - BSG ACHS and ISS while inpatient ATILIO: Continue CPAP Chronic anemia- baseline hgb 10.0- STABLE COPD- STABLE: Continue Advair, Spiriva, Prednisone DVT prophylaxis: Eliquis Code Status: LEVEL V, DNR Dispo: From home, lives w/ - PT/OT and CM consulted (Winter Lazaro, PA-C) I agree with PA assessment and plan and have seen and examined pt myself Resting comfortably in bed Admitted with mixed diastolic and systolic CHF exacerbation Cont lasix 80 mg IV BID at this time For atrial fibrillation utilize eliquis at this time Intolerance to ACEI or statin Labs reviewed Elev BNP Cont to monitor for diuresis (Navin Archuleta D.OJuan Carlos)
[2017-02-06] MEDS ORDERED: SODIUM CHLORIDE 0.65% NA SOLN 45 ML (OCEAN) PRN (11:30)
--- NOTE | 2017-02-06 13:25 | ECHOCARDIOGRAM REPORT ---
*NOTICE TO RECEIVING DEMOCRAT AGENCY This information is strictly Confidential and protected under [place] law. [place] law prohibits you from making any further disclosure of this information unless further disclosure is expressly permitted by the written consent of the person to whom it pertains or is authorized by law. A general authorization for the release of medical or other information is not sufficient for this purpose. Hospital accepts no responsibility if the information is made available to any other person, INCLUDING THE PATIENT. Interpretation Summary * Name: PARVEZ TUTTLE Study Date: 02/06/2017 08:30 AM BP: 101/60 mmHg * Patient Location: [facility] HR: 85 * : 1930 (M/d/yyyy) Gender: Male Height: 68 in * Age: 86 yrs Ethnicity: [place] Weight: 246 lb * Ordering Physician: Jorge A Mesa DO * Performed By: Sofia Bernstein RDCS * * Reason For Study: Dilated cardiomyopathy * BSA: 2.2 m2 * -- Conclusions -- * Left ventricular systolic function is moderately reduced. * There is inferior wall akinesis. * Ejection Fraction = 30-35%. * Mild valvular aortic stenosis. * Mild aortic regurgitation. * There is moderate mitral regurgitation. * There is moderate tricuspid regurgitation. Procedure Details * A complete two-dimensional transthoracic echocardiogram was performed (2D, M-mode, Doppler and color flow Doppler). Left Ventricle * The left ventricle is mildly dilated. * There is borderline concentric left ventricular hypertrophy. * Ejection Fraction = 30-35%. * Left ventricular systolic function is moderately reduced. * There is inferior wall akinesis. Right Ventricle * The right ventricle is grossly normal size. * The right ventricular systolic function is reduced as assessed by tricuspid annular plane systolic excursion (TAPSE) (TAPSE <1.6 cm). Atria * The left atrium is mildly dilated. * The right atrium is mildly dilated. * No ASD detected; PFO is not assessed. Mitral Valve * The mitral valve is grossly normal. * There is no mitral valve stenosis. * There is moderate mitral regurgitation. Tricuspid Valve * The tricuspid valve is not well visualized, but is grossly normal. * There is no tricuspid stenosis. * There is moderate tricuspid regurgitation. * Right ventricular systolic pressure is elevated at 40-50mmHg. Aortic Valve * The aortic valve is not well visualized. * Mild valvular aortic stenosis. * Mild aortic regurgitation. Pulmonic Valve * The pulmonary valve is not well seen, but the Doppler examination is normal without significant regurgitation or stenosis. Great Vessels * The aortic root is normal size. * The pulmonary is not well visualized. Pericardium/Pleural * There is no pericardial effusion. Great Vessels * The inferior vena cava is not well visualized. MMode 2D Measurements and Calculations IVSd 1.3 cm LVIDd 6.2 cm LVIDs 5.1 cm LVPWd 1.0 cm IVS/LVPW 1.3 FS 17.6 % EDV(Teich) 191.2 ml ESV(Teich) 122.6 ml EF(Teich) 35.9 % EDV(cubed) 233.8 ml ESV(cubed) 130.9 ml EF(cubed) 44.0 % LV mass(C)d 313.9 grams LV mass(C)dI 140.6 grams/m\S\2 SV(Teich) 68.6 ml SI(Teich) 30.8 ml/m\S\2 SV(cubed) 102.9 ml SI(cubed) 46.1 ml/m\S\2 Ao root diam 2.3 cm Ao root area 4.3 cm\S\2 ACS 1.2 cm LA dimension 4.1 cm asc Aorta Diam 3.1 cm LA/Ao 1.8 LVOT diam 2.0 cm LVOT area 3.3 cm\S\2 LVAd ap4 50.0 cm\S\2 LVLd ap4 9.7 cm EDV(MOD-sp4) 207.1 ml EDV(sp4-el) 218.3 ml LVAs ap4 36.6 cm\S\2 LVLs ap4 8.5 cm ESV(MOD-sp4) 125.5 ml ESV(sp4-el) 133.1 ml EF(MOD-sp4) 39.4 % EF(sp4-el) 39.0 % LVAd ap2 48.6 cm\S\2 LVLd ap2 9.9 cm EDV(MOD-sp2) 191.4 ml EDV(sp2-el) 201.2 ml LVAs ap2 36.7 cm\S\2 LVLs ap2 9.6 cm ESV(MOD-sp2) 113.6 ml ESV(sp2-el) 119.4 ml EF(MOD-sp2) 40.6 % EF(sp2-el) 40.7 % LVLd %diff 2.4 % EDV(MOD-bp) 202.8 ml LVLs %diff 11.0 % ESV(MOD-bp) 126.8 ml EF(MOD-bp) 37.5 % SV(MOD-sp4) 81.6 ml SI(MOD-sp4) 36.6 ml/m\S\2 SV(MOD-sp2) 77.8 ml SI(MOD-sp2) 34.8 ml/m\S\2 SV(MOD-bp) 76.0 ml SI(MOD-bp) 34.0 ml/m\S\2 SV(sp4-el) 85.2 ml SI(sp4-el) 38.2 ml/m\S\2 SV(sp2-el) 81.8 ml SI(sp2-el) 36.6 ml/m\S\2 Doppler Measurements and Calculations MV E max erinn 126.3 cm/sec MV dec time 0.20 sec Ao V2 max 202.5 cm/sec Ao max PG 16.4 mmHg Ao max PG (full) 14.6 mmHg LAURIE(V,A) 1.1 cm\S\2 LAURIE(V,D) 1.1 cm\S\2 AI max erinn 294.3 cm/sec AI max PG 34.6 mmHg AI dec slope 239.3 cm/sec\S\2 AI P1/2t 360.2 msec LV V1 max PG 1.8 mmHg LV V1 max 67.3 cm/sec MR max erinn 396.2 cm/sec MR max PG 62.8 mmHg MR mean erinn 303.4 cm/sec MR mean PG 41.3 mmHg MR VTI 109.6 cm PA V2 max 71.6 cm/sec PA max PG 2.1 mmHg PA acc slope 316.1 cm/sec\S\2 PA acc time 0.13 sec PI max erinn 215.7 cm/sec PI max PG 18.6 mmHg PI dec slope 215.0 cm/sec\S\2 PI P1/2t 293.8 msec TR max erinn 315.4 cm/sec PA pr(Accel) 20.7 mmHg
[2017-02-06] MEDS: PRAVASTATIN SOD 40 MG TAB PO SCH (20:20)
[2017-02-06] MEDS: APIXABAN 2.5 MG TAB PO SCH (20:20)
[2017-02-06] MEDS: INSULIN GLARGINE SOLOSTAR 100 UNITS/ML 3 ML PEN SC SCH (20:23)
[2017-02-07] VITALS (8 sets, daily range): BP systolic 92–122; BP diastolic 58–75; PULSE 76–93; TEMP 35.9–36.5; O2SAT 91–98
[2017-02-07 07:39] LABS: CALCIUM 9.2 mg/dl (8.5-10.1); CREATININE 2.08 mg/dl (0.60-1.40)
[2017-02-07] MEDS: FLUTICASONE/SALMETEROL (ADVAIR) 500/50 INH 14 PUFF INH SCH ×2 (07:39→20:16)
[2017-02-07] MEDS: INSULIN ASPART 100 UNITS/ML 3 ML PEN SC SCH ×4 (07:39→20:20)
[2017-02-07] MEDS: FUROSEMIDE INJ 80 MG in SYRINGE 0 ML IV SCH ×2 (07:41→17:00)
[2017-02-07] MEDS: TIOTROPIUM BROMIDE 5 PUFF/90 MCG INH INH SCH (07:41)
[2017-02-07] MEDS: CARVEDILOL 25 MG TAB PO SCH ×2 (07:41→20:17)
[2017-02-07] MEDS: POTASSIUM CHLORIDE 20 MEQ TABCR PO SCH ×2 (07:42→20:18)
[2017-02-07] MEDS: APIXABAN 2.5 MG TAB PO SCH ×2 (07:42→20:18)
[2017-02-07] MEDS: TAMSULOSIN HCL 0.4 MG CAP PO SCH (07:42)
--- NOTE | 2017-02-07 10:03 | CARDIOLOGY PROGRESS NOTE ---
DATE: 02/07/2017 SUBJECTIVE: Mr. Rivera is resting comfortably in bedside chair without complaints of chest pain or dyspnea. Did not have a restful evening. OBJECTIVE: VITAL SIGNS: Blood pressure 122/70 with irregular pulse of 80. Respiratory rate is 18. The patient is afebrile at 36.5 degrees Celsius. Saturation is 91% on 2 liters nasal cannula. NECK: Supple with full carotid upstrokes. No obvious bruits. Jugular venous pressure is flat at 90 degrees. There is no thyromegaly. CARDIOVASCULAR: Reveals an irregular, irregular rhythm with distant heart sounds. No obvious murmurs. LUNGS: Clear without rales, rhonchi, or wheezes. ABDOMEN: Obese without bruits. EXTREMITIES: Reveal 1+ pretibial edema bilaterally. LABORATORY DATA: Electrolytes note a sodium of 131, potassium 4.0, chloride 92, bicarb 33, BUN 92, creatinine 2.0. Weight was not performed. patient monitor notes atrial fibrillation with a controlled ventricular response. IMPRESSION AND PLAN: 1. Acute combined congestive heart failure -- continue aggressive diuresis until BUN and creatinine increase. 2. Left ventricular dysfunction -- ejection fraction of 30-35% with an inferior wall motion abnormality. 3. Mild aortic stenosis -- with mild aortic insufficiency. 4. Moderate mitral regurgitation. 5. Atrial fibrillation -- ventricular rate controlled. Will consider cardioversion in approximately 3 weeks. 6. Coronary artery disease -- status post coronary artery bypass grafting x2.
--- NOTE | 2017-02-07 11:44 | Hospitalist Progress Note ---
Hospitalist Progress Note Date of Service Feb 07, 2017. (Winter Lazaro ., PA-C) Subjective Pt evaluation today including: conversation w/ patient, physical exam, lab review, review of inpatient medication list Voiding: vuong catheter in place (draining clear/yellow urine ) Patient resting in bed. Eating and drinking OK. +SOB, but improving. +weakness. Worked w/ PT today but states he feels extremely weak and fatigued after little work. Encouraged patient to work with PT. Patient denies any fever, chills, sweats, lightheadedness, dizziness, vision changes, CP, palpitations, edema, wheezing, cough, abdominal pain, nausea, vomiting, diarrhea, urinary symptoms, melena, numbness/tingling, weakness, muscle/joint pain, anxiety/depression, active bleeding, or new skin discoloration/changes. (Winter Lazaro ., PA-C) Medications Current Inpatient Medications Medications (Trade) Dose Ordered Sig/Dafne Route Start Time Stop Time Status Last Admin Dose Admin Acetaminophen (Tylenol Tab) 650 mg Q4H PRN PO 02/05/17 18:30 03/07/17 18:29 02/07/17 02:02 650 MG Ondansetron HCl (Zofran Inj) 4 mg Q6H PRN IV 02/05/17 18:30 03/07/17 18:29 Carvedilol (Coreg Tab) 25 mg BID PO 02/05/17 21:00 03/07/17 20:59 02/07/17 07:41 25 MG Salmeterol Xinafoate/ Fluticasone (Advair Diskus 500/50 Inh) 1 puff BID INH 02/05/17 21:00 03/07/17 20:59 02/07/17 07:39 1 PUFF Insulin Glargine (Lantus Solostar Pen) 30 units HS SC 02/05/17 21:00 03/07/17 20:59 02/06/17 20:23 30 UNITS Pravastatin Sodium (Pravachol Tab) 40 mg HS PO 02/05/17 21:00 03/07/17 20:59 02/06/17 20:20 40 MG Prednisone (PredniSONE TAB) 20 mg DAILY PO 02/06/17 09:00 03/08/17 08:59 02/07/17 07:42 20 MG Tamsulosin HCl (Flomax Cap) 0.4 mg DAILY PO 02/06/17 09:00 03/08/17 08:59 02/07/17 07:42 0.4 MG Tiotropium [place] (Spiriva Handihaler Inhaler) 1 puff DAILY INH 02/06/17 09:00 03/08/17 08:59 02/07/17 07:41 1 PUFF Insulin Aspart (novoLOG ASPART) SLIDING SCALE G... ACHS SC 02/05/17 21:00 03/07/17 20:59 02/07/17 07:39 4 UNITS Glucose (Glucose 40% Gel) 15-30 GRAMS 15 GRAMS... UD PRN PO 02/05/17 18:45 03/07/17 18:44 Glucose (Glucose Chew Tab) 4-8 Tablets 4 Tabl... UD PRN PO 02/05/17 18:45 03/07/17 18:44 Dextrose (Dextrose 50% 50ML Syringe) 25-50ML OF 50% DW IV FOR... UD PRN IV 02/05/17 18:45 03/07/17 18:44 Glucagon (Glucagon Inj) 1 mg UD PRN SQ 02/05/17 18:45 03/07/17 18:44 Furosemide 80 mg/ Syringe 8 ml @ 4 mls/min BID17 IV 02/06/17 09:00 03/08/17 08:59 02/07/17 07:41 4 MLS/MIN Potassium Chloride (Klor-Con Tab) 20 meq BID PO 02/06/17 09:00 03/08/17 08:59 02/07/17 07:42 20 MEQ Apixaban (Eliquis Tab) 2.5 mg BID PO 02/06/17 21:00 03/08/17 20:59 02/07/17 07:42 2.5 MG Sodium Chloride ([place] Nasal [place]) 1 sprays UD PRN NA 02/06/17 11:30 03/08/17 11:29 (Winter Lazaro, TRENA) Objective Vital Signs Date Time Temp Pulse Resp B/P (MAP) Pulse Ox O2 Delivery O2 Flow Rate FiO2 02/07/17 11:11 36.4 76 20 106/58 (74) 95 2.0 02/07/17 08:00 Nasal Cannula 2.0 02/07/17 07:37 36.5 89 18 122/69 (86) 91 2.0 02/07/17 04:00 Nasal Cannula 2.0 CPAP 02/07/17 03:33 36.3 83 20 109/68 (82) 97 Nasal Cannula 2.0 02/07/17 00:00 36.3 85 18 98/65 (76) 95 Nasal Cannula 2.0 02/07/17 00:00 Nasal Cannula 2.0 CPAP 02/06/17 22:14 90 93 2.0 02/06/17 20:00 Nasal Cannula 2.0 02/06/17 19:14 36.4 89 18 116/56 (76) 91 Nasal Cannula 2.0 02/06/17 16:10 36.6 86 16 107/67 (80) 94 Nasal Cannula 2.0 02/06/17 16:00 Nasal Cannula 2.0 02/06/17 12:00 Nasal Cannula 2.0 (Winter Lazaro ., PA-C) Physical Exam General Appearance: no apparent distress, + pertinent finding (O2 NC ) Eyes: normal inspection, PERRL ENT: hearing grossly normal Neck: supple Respiratory/Chest: lungs clear, no respiratory distress, no accessory muscle use, + decreased breath sounds (throughout ) Cardiovascular: + irregularly irregular (rate controlled ) Abdomen: normal bowel sounds, non tender, soft Extremities: no calf tenderness, + swelling (+1 pitting edema to bilateral lower extremities ) Neurologic/Psychiatric: alert, normal mood/affect, oriented x 3 Skin: normal color, warm/dry, no rash (Winter Lazaro ., PA-C) Laboratory Results Last 24 Hours Test 02/06/17 13:43 02/06/17 16:23 02/06/17 19:57 02/06/17 22:56 Troponin I 0.059 ng/ml Bedside Glucose 312 mg/dl 312 mg/dl 237 mg/dl Test 02/07/17 06:23 02/07/17 06:44 Sodium Level 131 mmol/L Potassium Level 4.0 mmol/L Chloride Level 92 mmol/L Carbon Dioxide Level 33 mmol/L Anion Gap 6.0 mmol/L Blood Urea Nitrogen 92 mg/dl Creatinine 2.08 mg/dl Est Creatinine Clear Calc Drug Dose 30.8 ml/min Estimated GFR () 32.2 Estimated GFR (Non- 27.8 BUN/Creatinine Ratio 44.0 Random Glucose 124 mg/dl Calcium Level 9.2 mg/dl Bedside Glucose 151 mg/dl (Winter Lazaro ., PA-C) Assessment and Plan 86 y/o male presents with progressive dyspnea and weight gain over the past several weeks consistent with acute on chronic systolic heart failure Acute on chronic systolic and diastolic heart failure: - Admitted to tele for cardiac monitoring - Trend cardiac enzymes- mildly elevated, likely secondary to demand ischemia - EKG w/out acute ischemic changes; EKG QAM and PRN for chest pain - Lasix 80mg IV BID - Monitor I&Os- Vuong placed, and daily weights- diuresed almost 4L - ECHO- EF of 30-35%, inferior wall motion abnormality, mild aortic stenosis, mild aortic insufficiency, moderate mitral regurgitation - Cardiology consulted, appreciate recommendations New atrial fibrillation, rate controlled: - Continue Coreg 25 mg BID - Eliquis 2.5 mg BID - Cardiology following 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- baseline Cr 1.5-1.8- STABLE: - Hold nephrotoxic agents (Losartan) and renally dose medications as appropriate - Follow PRP CAD s/p CABG x2, HTN: - Continue Coreg, Pravastatin 40 mg HS - ASA held at admission due to chronic anemia and starting anticoagulation for a.fib- resume at discharge per cardiology if H&H stable - Losartan held as above DM, insulin dependent, with hypoglycemia: - Typically on Lantus 63 units HS, decreased to 30 units - BSG ACHS and ISS while inpatient ATILIO: Continue CPAP Chronic anemia- baseline hgb 10.0- STABLE COPD- STABLE: Continue Advair, Spiriva, Prednisone DVT prophylaxis: Eliquis Code Status: LEVEL V, DNR Dispo: From home, lives w/ - PT/OT and CM consulted (Winter Lazaro ., PA-C) I agree with PA assessment and plan and have seen and examined pt myself Resting comfortably in bed VSS Labs reviewed Hx of BPH and self catherizations Follows up with urology Sepsis noted Lactate improving Await urine cx Cont antibx at this time (Navin Archuleta, D.O.)
[2017-02-07] MEDS: PRAVASTATIN SOD 40 MG TAB PO SCH (20:18)
[2017-02-07] MEDS: INSULIN GLARGINE SOLOSTAR 100 UNITS/ML 3 ML PEN SC SCH (20:21)
[2017-02-08] VITALS (9 sets, daily range): BP systolic 96–118; BP diastolic 57–78; PULSE 72–84; TEMP 36.4–36.6; O2SAT 90–98
[2017-02-08 06:12] LABS: HEMATOCRIT 33.4 % (42-52); MEAN CELL VOLUME 97.1 fL (80-100); MEAN CORPUSCULAR HEMOGLOBIN 28.5 pg (25-34); MEAN CORPUSCULAR HGB CONC 29.3 g/dl (32-36); MEAN PLATELET VOLUME 10.1 fL (7.4-10.4); PLATELET COUNT 252 K/uL (130-400); RED BLOOD COUNT 3.44 M/uL (4.7-6.1); WHITE BLOOD COUNT 8.65 K/uL (4.8-10.8)
[2017-02-08 06:50] LABS: BLOOD UREA NITROGEN 109 mg/dl (7-18); BUN/CREATININE RATIO 49.2 (10-20); CALCIUM 9.3 mg/dl (8.5-10.1); CARBON DIOXIDE 35 mmol/L (21-32); CHLORIDE 91 mmol/L (98-107); CREATININE 2.21 mg/dl (0.60-1.40); GLUCOSE 132 mg/dl (70-99); SODIUM 132 mmol/L (136-145)
[2017-02-08] MEDS: INSULIN ASPART 100 UNITS/ML 3 ML PEN SC SCH ×4 (07:00→20:48)
[2017-02-08] MEDS: TIOTROPIUM BROMIDE 5 PUFF/90 MCG INH INH SCH (07:33)
[2017-02-08] MEDS: FLUTICASONE/SALMETEROL (ADVAIR) 500/50 INH 14 PUFF INH SCH ×2 (07:33→20:45)
[2017-02-08] MEDS: POTASSIUM CHLORIDE 20 MEQ TABCR PO SCH ×2 (07:34→20:46)
[2017-02-08] MEDS: APIXABAN 2.5 MG TAB PO SCH ×2 (07:34→20:46)
[2017-02-08] MEDS: TAMSULOSIN HCL 0.4 MG CAP PO SCH (07:34)
[2017-02-08] MEDS: FUROSEMIDE INJ 80 MG in SYRINGE 0 ML IV SCH (07:34)
[2017-02-08] MEDS: CARVEDILOL 25 MG TAB PO SCH ×2 (07:34→20:45)
--- NOTE | 2017-02-08 11:23 | CARDIOLOGY PROGRESS NOTE ---
DATE: 02/08/2017 DATE: 02/08/2017 SUBJECTIVE: Mr. Rivera is somnolent but easily arousable this morning. According to his nurse, he did not sleep well last evening as he was intolerant of the CPAP mask. His is at the bedside. OBJECTIVE: VITAL SIGNS: Blood pressure is 100/60 with a regular pulse of 80. Respiratory rate is 18. The patient is afebrile at 36.4 degrees Celsius. Saturations 92% on 3 liters nasal cannula. NECK: Supple with full carotid upstrokes. No obvious bruits. Jugular venous pressure is difficult to assess. CARDIOVASCULAR EXAMINATION: Reveals an irregular rhythm with distant heart sounds. No obvious murmurs. LUNGS: Clear without rales, rhonchi, or wheezes. ABDOMEN: Obese without bruits. EXTREMITIES: Reveal 1+ pretibial edema bilaterally. LABORATORY DATA: CBC notes a hemoglobin of 9.8, hematocrit 33.4, white count 8.6, platelet count 252,000. Electrolytes note a sodium of 132, potassium 4.8, chloride 91, bicarbonate 35, BUN 109, creatinine 221. concrete puddler notes atrial fibrillation with a controlled ventricular response. IMPRESSION AND PLAN: 1. Acute combined congestive heart failure -- patient continues on aggressive diuresis with intravenous furosemide. BUN starting to rise, therefore, may be best to cut back to once daily dosing. 2. Left ventricular dysfunction -- ejection fraction of 30-35% with an inferior wall motion abnormality. 3. Mild aortic stenosis - with mild aortic insufficiency. 4. Moderate mitral regurgitation. 5. Atrial fibrillation -- ventricular response, controlled. Will consider chemical versus electrical cardioversion after 3 weeks of anticoagulation. 6. Coronary artery disease -- status post coronary artery bypass graft x2.
--- NOTE | 2017-02-08 12:53 | Hospitalist Progress Note ---
Hospitalist Progress Note Date of Service Feb 08, 2017. (Winter Lazaro ., TRENA) Subjective Pt evaluation today including: conversation w/ patient, conversation w/ family ( ), physical exam, lab review, review of inpatient medication list Voiding: no voiding problems Patient resting in bed. CPAP on. Easily wakes to name. +weakness. +SOB. Discussed rehab- patient/ agreeable. Patient denies any fever, chills, sweats, lightheadedness, dizziness, vision changes, CP, palpitations, edema, wheezing, cough, abdominal pain, nausea, vomiting, diarrhea, urinary symptoms, melena, numbness/tingling, muscle/joint pain, anxiety/depression, active bleeding, or new skin discoloration/changes. (Winter Lazaro ., PINAC) Medications Current Inpatient Medications Medications (Trade) Dose Ordered Sig/Dafne Route Start Time Stop Time Status Last Admin Dose Admin Acetaminophen (Tylenol Tab) 650 mg Q4H PRN PO 02/05/17 18:30 03/07/17 18:29 02/07/17 02:02 650 MG Ondansetron HCl (Zofran Inj) 4 mg Q6H PRN IV 02/05/17 18:30 03/07/17 18:29 Carvedilol (Coreg Tab) 25 mg BID PO 02/05/17 21:00 03/07/17 20:59 02/08/17 07:34 25 MG Salmeterol Xinafoate/ Fluticasone (Advair Diskus 500/50 Inh) 1 puff BID INH 02/05/17 21:00 03/07/17 20:59 02/08/17 07:33 1 PUFF Insulin Glargine (Lantus Solostar Pen) 30 units HS SC 02/05/17 21:00 03/07/17 20:59 02/07/17 20:21 30 UNITS Pravastatin Sodium (Pravachol Tab) 40 mg HS PO 02/05/17 21:00 03/07/17 20:59 02/07/17 20:18 40 MG Prednisone (PredniSONE TAB) 20 mg DAILY PO 02/06/17 09:00 03/08/17 08:59 02/08/17 07:34 20 MG Tamsulosin HCl (Flomax Cap) 0.4 mg DAILY PO 02/06/17 09:00 1/12/18 08:59 02/08/17 07:34 0.4 MG Tiotropium [place] (Spiriva Handihaler Inhaler) 1 puff DAILY INH 02/06/17 09:00 03/08/17 08:59 02/08/17 07:33 1 PUFF Insulin Aspart (novoLOG ASPART) SLIDING SCALE G... ACHS SC 02/05/17 21:00 03/07/17 20:59 02/08/17 12:20 3 UNITS Glucose (Glucose 40% Gel) 15-30 GRAMS 15 GRAMS... UD PRN PO 02/05/17 18:45 03/07/17 18:44 Glucose (Glucose Chew Tab) 4-8 Tablets 4 Tabl... UD PRN PO 02/05/17 18:45 03/07/17 18:44 Dextrose (Dextrose 50% 50ML Syringe) 25-50ML OF 50% DW IV FOR... UD PRN IV 02/05/17 18:45 03/07/17 18:44 Glucagon (Glucagon Inj) 1 mg UD PRN SQ 02/05/17 18:45 03/07/17 18:44 Furosemide 80 mg/ Syringe 8 ml @ 4 mls/min BID17 IV 02/06/17 09:00 03/08/17 08:59 02/08/17 07:34 4 MLS/MIN Potassium Chloride (Klor-Con Tab) 20 meq BID PO 02/06/17 09:00 03/08/17 08:59 02/08/17 07:34 20 MEQ Apixaban (Eliquis Tab) 2.5 mg BID PO 02/06/17 21:00 03/08/17 20:59 02/08/17 07:34 2.5 MG Sodium Chloride ([place] Nasal [place]) 1 sprays UD PRN NA 02/06/17 11:30 03/08/17 11:29 (Winter Lazaro PA-C) Objective Vital Signs Date Time Temp Pulse Resp B/P (MAP) Pulse Ox O2 Delivery O2 Flow Rate FiO2 02/08/17 12:01 92 Nasal Cannula 3.0 02/08/17 11:41 36.6 82 18 110/71 (84) 90 BiPAP 02/08/17 09:02 92 Nasal Cannula 3.0 02/08/17 07:58 36.4 84 18 96/61 (73) 92 02/08/17 04:00 Nasal Cannula 3.0 02/08/17 03:25 36.4 84 20 118/78 (91) 95 Nasal Cannula 4.0 02/08/17 00:00 CPAP 3.0 02/07/17 23:00 35.9 93 20 119/75 (90) 95 CPAP 02/07/17 20:00 Nasal Cannula 3.0 02/07/17 19:38 36.4 93 22 106/65 (79) 95 Nasal Cannula 3.0 02/07/17 16:05 36.4 81 18 95/63 (74) 91 Nasal Cannula 2.0 02/07/17 16:00 Nasal Cannula 3.0 (Winter Lazaro PA-C) Physical Exam General Appearance: no apparent distress, + pertinent finding (CPAP on ) Eyes: normal inspection, PERRL ENT: hearing grossly normal Neck: supple Respiratory/Chest: lungs clear, no respiratory distress, no accessory muscle use Cardiovascular: + irregularly irregular (rate controlled ) Abdomen: normal bowel sounds, non tender, soft Extremities: no calf tenderness, + swelling (+1 pitting edema to bilateral lower extremities ) Neurologic/Psychiatric: alert, normal mood/affect Skin: normal color, warm/dry, no rash (Winter Lazaro PA-C) Laboratory Results Last 24 Hours Test 02/07/17 15:38 02/07/17 19:50 02/08/17 05:49 02/08/17 06:22 Bedside Glucose 206 mg/dl 240 mg/dl 150 mg/dl White Blood Count 8.65 K/uL Red Blood Count 3.44 M/uL Hemoglobin 9.8 g/dL Hematocrit 33.4 % Mean Corpuscular Volume 97.1 fL Mean Corpuscular Hemoglobin 28.5 pg Mean Corpuscular Hemoglobin Concent 29.3 g/dl RDW Standard Deviation 56.5 fL RDW Coefficient of Variation 16.1 % Platelet Count 252 K/uL Mean Platelet Volume 10.1 fL Sodium Level 132 mmol/L Potassium Level mmol/L Chloride Level 91 mmol/L Carbon Dioxide Level 35 mmol/L Anion Gap 6.0 mmol/L Blood Urea Nitrogen 109 mg/dl Creatinine 2.21 mg/dl Est Creatinine Clear Calc Drug Dose 28.7 ml/min Estimated GFR () 29.9 Estimated GFR (Non- 25.8 BUN/Creatinine Ratio 49.2 Random Glucose 132 mg/dl Calcium Level 9.3 mg/dl Test 02/08/17 06:51 02/08/17 11:22 Potassium Level 4.8 mmol/L Bedside Glucose 192 mg/dl (Winter Lazaro ., PA-C) Assessment and Plan 86 y/o male presents with progressive dyspnea and weight gain over the past several weeks consistent with acute on chronic systolic heart failure Acute on chronic systolic and diastolic heart failure: - Admitted to tele for cardiac monitoring - Trend cardiac enzymes- mildly elevated, likely secondary to demand ischemia - EKG w/out acute ischemic changes; EKG QAM and PRN for chest pain - Lasix 80mg IV BID- decreased to daily due to bump in Cr. 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 - Follow PRP CAD s/p CABG x2, HTN: - Continue Coreg, Pravastatin 40 mg HS - ASA held at admission due to chronic anemia and starting anticoagulation for a.fib- resume at discharge per cardiology if H&H stable - Losartan held as above DM, insulin dependent, with hypoglycemia: - Typically on Lantus 63 units HS, decreased to 30 units - BSG ACHS and ISS while inpatient ATILIO: Continue CPAP Chronic anemia- baseline hgb 10.0- STABLE COPD- STABLE: Continue Advair, Spiriva, Prednisone DVT prophylaxis: Eliquis Code Status: LEVEL V, DNR Dispo: From home, lives w/ - will need rehab at discharge- PT/OT and CM consulted (Winter Lazaro ., PA-C) Please disregard previous addendum I agree with PA assessment and plan and have seen and examined pt myself Resting comfortably in bed States some weakness Admitted with mixed diastolic and systolic CHF exacerbation, cont coreg and eliquis for new onset afib Reduce lasix 80 mg IV BID to once a day due to bump in Cr, diuresing well Appreciate cardiology recs Intolerance to ACEI or statin Labs reviewed Elev BNP Cont to monitor for diuresis (Navin Archuleta D.O.)
[2017-02-08] MEDS: PRAVASTATIN SOD 40 MG TAB PO SCH (20:45)
[2017-02-08] MEDS: INSULIN GLARGINE SOLOSTAR 100 UNITS/ML 3 ML PEN SC SCH (20:48)
[2017-02-09] VITALS (9 sets, daily range): BP systolic 95–120; BP diastolic 53–77; PULSE 62–83; TEMP 36.3–36.8; O2SAT 89–100
[2017-02-09 02:17] LABS: HEMATOCRIT 33.5 % (42-52); MEAN CELL VOLUME 95.4 fL (80-100); MEAN CORPUSCULAR HEMOGLOBIN 28.5 pg (25-34); MEAN CORPUSCULAR HGB CONC 29.9 g/dl (32-36); MEAN PLATELET VOLUME 10.3 fL (7.4-10.4); PLATELET COUNT 243 K/uL (130-400); RED BLOOD COUNT 3.51 M/uL (4.7-6.1); WHITE BLOOD COUNT 8.26 K/uL (4.8-10.8)
[2017-02-09 02:39] LABS: BUN/CREATININE RATIO 55.9 (10-20); CREATININE 2.31 mg/dl (0.60-1.40); MAGNESIUM 2.4 mg/dl (1.8-2.4); POTASSIUM 5.1 mmol/L (3.5-5.1)
--- NOTE | 2017-02-09 08:37 | DIAGNOSTIC IMAGING REPORT ---
CHEST ONE VIEW PORTABLE HISTORY: Follow-up pleural effusion. COMPARISON: Chest 02/05/2017. FINDINGS: No pneumothorax. The heart remains mildly enlarged. Poststernotomy changes. Diffuse interstitial and vascular thickening persists consistent with congestive change. Small right pleural effusion and a trace left pleural effusion which have progressed. Right basilar density has also progressed. IMPRESSION: 1. Mild congestive change with a small right and trace left pleural effusion. 2. Right base airspace opacity has progressed and could be due to the pleural fluid or a developing airspace opacity in the setting of pneumonia or atelectasis. Electronically signed by: Antonino Rooney M.D. 02/09/2017 8:36 AM Dictated Date/Time: 02/09/2017 8:34 AM
[2017-02-09] MEDS: CARVEDILOL 25 MG TAB PO SCH ×2 (08:45→20:50)
[2017-02-09] MEDS: FLUTICASONE/SALMETEROL (ADVAIR) 500/50 INH 14 PUFF INH SCH ×2 (08:45→20:49)
[2017-02-09] MEDS: TAMSULOSIN HCL 0.4 MG CAP PO SCH (08:45)
[2017-02-09] MEDS: TIOTROPIUM BROMIDE 5 PUFF/90 MCG INH INH SCH (08:46)
[2017-02-09] MEDS: APIXABAN 2.5 MG TAB PO SCH ×2 (08:46→20:50)
[2017-02-09] MEDS: INSULIN ASPART 100 UNITS/ML 3 ML PEN SC SCH ×4 (08:49→20:54)
[2017-02-09] MEDS ORDERED: FUROSEMIDE INJ 80 MG in SYRINGE 0 ML IV SCH (09:00)
--- NOTE | 2017-02-09 12:22 | Progress Note ---
Subjective Date of Service: Feb 09, 2017. Subjective Pt evaluation today including: conversation w/ patient, conversation w/ family , physical exam, chart review, lab review, review of studies, review of inpatient medication list Pt resting comfortably in bed Less drowsy than yesterday No complaints of shortness of breath or chest pain Short 5 beat run of VTach last night, asymptomatic at bedside and updated Problem List Medical Problems: (1) CHF (congestive heart failure) Status: Acute (2) Hypoglycemia Status: Acute (3) Hypoxemia Status: Acute (4) Pulmonary edema Status: Acute (5) Shortness of breath Status: Acute (6) SOB (shortness of breath) Status: Acute Review of Systems Constitutional: No fever, No chills, No sweats, No weight loss, No weakness Eyes: No worsening of vision, No eye pain, No redness, No discharge Respiratory: No cough, No sputum, No wheezing, No shortness of breath, No dyspnea on exertion Cardiac: No chest pain, No orthopnea, No PND, No edema, No claudication Abdomen: No pain, No nausea, No vomiting, No diarrhea, No constipation Musculoskeletal: No joint pain, No muscle pain, No swelling, No calf pain Male : No dysuria, No urinary frequency, No incontinence, No slowing stream Neurologic: No memory loss, No paralysis, No weakness, No numbness/tingling Psychiatric: No depression symptoms, No anhedonism, No anxiety, No insomnia Heme: No abnormal bleeding/bruising, No clotting problems Skin: No rash, No itch Objective Vital Signs Date Time Temp Pulse Resp B/P (MAP) Pulse Ox O2 Delivery O2 Flow Rate FiO2 02/09/17 08:07 36.8 78 19 104/70 (81) 99 Nasal Cannula 3.0 02/09/17 04:02 CPAP 02/09/17 03:50 36.3 73 20 95/60 (72) 91 Room Air 02/09/17 00:10 93 CPAP 02/09/17 00:05 36.4 83 23 112/67 (82) 89 CPAP 4.0 02/09/17 00:04 CPAP 02/08/17 20:04 CPAP 6.0 02/08/17 19:45 72 91 6.0 02/08/17 19:24 36.4 76 18 106/63 (77) 92 CPAP 02/08/17 18:51 92 Nasal Cannula 3.0 02/08/17 15:13 36.4 77 18 101/57 (72) 98 Nasal Cannula 3.0 02/08/17 12:01 92 Nasal Cannula 3.0 Physical Exam General Appearance: WD/WN, no apparent distress Eyes: normal inspection, PERRL, EOMI, sclerae normal Neck: supple, no adenopathy, thyroid normal, no JVD Respiratory/Chest: chest non-tender, no respiratory distress, no accessory muscle use, + decreased breath sounds Cardiovascular: no gallop, no JVD, no murmur Abdomen: normal bowel sounds, non tender, soft Extremities: normal range of motion, non-tender, normal inspection, no calf tenderness, + pedal edema (+1 pitting edema left leg) Neurologic/Psychiatric: no motor/sensory deficits, alert, normal mood/affect, oriented x 3 Laboratory Results Last 24 Hours Test 02/08/17 16:41 02/08/17 20:25 02/09/17 01:59 02/09/17 06:45 Bedside Glucose 185 mg/dl 211 mg/dl 186 mg/dl White Blood Count 8.26 K/uL Red Blood Count 3.51 M/uL Hemoglobin 10.0 g/dL Hematocrit 33.5 % Mean Corpuscular Volume 95.4 fL Mean Corpuscular Hemoglobin 28.5 pg Mean Corpuscular Hemoglobin Concent 29.9 g/dl RDW Standard Deviation 55.0 fL RDW Coefficient of Variation 16.0 % Platelet Count 243 K/uL Mean Platelet Volume 10.3 fL Sodium Level 132 mmol/L Potassium Level 5.1 mmol/L Chloride Level 92 mmol/L Carbon Dioxide Level 33 mmol/L Anion Gap 7.0 mmol/L Blood Urea Nitrogen 129 mg/dl Creatinine 2.31 mg/dl Est Creatinine Clear Calc Drug Dose 27.5 ml/min Estimated GFR () 28.4 Estimated GFR (Non- 24.5 BUN/Creatinine Ratio 55.9 Random Glucose 155 mg/dl Calcium Level 9.0 mg/dl Magnesium Level 2.4 mg/dl Test 02/09/17 11:16 Bedside Glucose 199 mg/dl Assessment and Plan 86 y/o male with a PMH significant for CAD (CABG x2 1996), ischemic cardiomyopathy (EF 25-30%), chronic combined systolic and diastolic CHF, severe COPD, , HTN, dyslipidemia, and CKD stage 3 who presented to the ED yesterday with complaints of worsening shortness of breath as well as 7 lb weight gain in 1 week Acute on chronic respiratory failure likely contributory from acute on chronic systolic and diastolic heart failure: - Admitted to tele for cardiac monitoring, initial CXR did not determine any pulmonary congestion despite clinical picture heavily favoring an exacerbation - Trend cardiac enzymes- mildly elevated, likely secondary to demand ischemia - EKG w/out acute ischemic changes - Lasix 80mg IV BID (home regimen), diuresed well, 1550 output on 02/08, dced lasix at this time due to bump in Cr, resume on home regimen once improves - Monitor I&Os- Ortiz placed, and daily weights - ECHO- EF of 30-35%, inferior wall motion abnormality, mild aortic stenosis, mild aortic insufficiency, moderate mitral regurgitation - Cardiology consulted, appreciate recs Permanent atrial fibrillation, rate controlled: - Continue Coreg 25 mg BID - Eliquis 2.5 mg BID - Cardiology following, will need AC for several weeks, likely antiarrhythmic then afterwards or cardioversion 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- baseline Cr 1.5-1.8: worsening - Hold nephrotoxic agents (Losartan) and renally dose medications as appropriate - Hold lasix due to bump in Cr. - Follow PRP CAD s/p CABG x2, HTN: - Continue Coreg, Pravastatin 40 mg HS - ASA held at admission due to chronic anemia and starting anticoagulation for a.fib- resume at discharge per cardiology if H&H stable - Losartan held as above IDDM, with hypoglycemia: - Typically on Lantus 63 units HS, decreased to 30 units - BSG ACHS and ISS while inpatient ATILIO: Continue CPAP at night Chronic anemia- baseline hgb 10.0- STABLE COPD- STABLE: Continue Advair, Spiriva, Prednisone taper DVT prophylaxis with eliquis Code Status: LEVEL V, DNR Dispo: Will need rehab, poor mobility per PT recs, updated, both are in agreement with decision
[2017-02-09] MEDS: PRAVASTATIN SOD 40 MG TAB PO SCH (20:49)
[2017-02-09] MEDS: INSULIN GLARGINE SOLOSTAR 100 UNITS/ML 3 ML PEN SC SCH (20:54)
[2017-02-10] VITALS (7 sets, daily range): BP systolic 103–119; BP diastolic 58–69; PULSE 60–79; TEMP 36.2–36.9; O2SAT 92–98
[2017-02-10] MEDS: TAMSULOSIN HCL 0.4 MG CAP PO SCH (08:34)
[2017-02-10] MEDS: CARVEDILOL 25 MG TAB PO SCH ×2 (08:34→20:56)
[2017-02-10] MEDS: APIXABAN 2.5 MG TAB PO SCH ×2 (08:34→20:56)
[2017-02-10] MEDS: TIOTROPIUM BROMIDE 5 PUFF/90 MCG INH INH SCH (08:35)
[2017-02-10] MEDS: FLUTICASONE/SALMETEROL (ADVAIR) 500/50 INH 14 PUFF INH SCH ×2 (08:35→20:56)
[2017-02-10] MEDS: INSULIN ASPART 100 UNITS/ML 3 ML PEN SC SCH ×4 (08:41→21:00)
[2017-02-10] MEDS ORDERED: FUROSEMIDE 40 MG TAB PO SCH (09:00)
[2017-02-10 10:25] LABS: BUN/CREATININE RATIO 59.5 (10-20); CALCIUM 9.1 mg/dl (8.5-10.1); CREATININE 2.1 mg/dl (0.60-1.40); MAGNESIUM 2.6 mg/dl (1.8-2.4); POTASSIUM 4.6 mmol/L (3.5-5.1)
--- NOTE | 2017-02-10 13:29 | Hospitalist Progress Note ---
Hospitalist Progress Note Date of Service Feb 10, 2017. Subjective Pt evaluation today including: conversation w/ patient, conversation w/ family Voiding: vuong catheter in place Pt feeling less SOB than upon admission, mild cough, nonproductive. Would like to have Vuong removed. All Other Systems: Reviewed and Negative Objective Vital Signs Date Time Temp Pulse Resp B/P (MAP) Pulse Ox O2 Delivery O2 Flow Rate FiO2 02/10/17 12:00 Nasal Cannula 3.0 CPAP 02/10/17 11:31 36.9 66 19 105/58 (74) 93 BiPAP 02/10/17 08:00 Nasal Cannula 3.0 CPAP 02/10/17 07:29 36.2 79 19 105/67 (80) 98 Nasal Cannula 3.0 02/10/17 04:02 CPAP 02/10/17 04:00 36.3 79 18 103/61 (75) 92 CPAP 02/10/17 00:00 CPAP 02/09/17 23:56 36.7 62 20 104/72 (83) 93 CPAP 02/09/17 20:25 80 93 3.0 02/09/17 20:00 CPAP 02/09/17 19:37 36.4 73 20 120/77 (91) 93 CPAP 02/09/17 16:00 CPAP 02/09/17 15:47 76 22 108/66 (80) 92 BiPAP Physical Exam General Appearance: WD/WN, no apparent distress Eyes: normal inspection, sclerae normal ENT: hearing grossly normal Neck: trachea midline Respiratory/Chest: no respiratory distress, no accessory muscle use, + decreased breath sounds (at bases bilat) Cardiovascular: no murmur, + irregularly irregular (with normal rate), + pertinent finding (trace pitting edema legs L>R bilat) Abdomen: normal bowel sounds, non tender, soft Extremities: no calf tenderness Neurologic/Psychiatric: alert, normal mood/affect Skin: normal color, warm/dry, + pertinent finding (chronic venous stasis hcanges legs bilat) Laboratory Results Last 24 Hours Test 02/09/17 16:10 02/09/17 20:10 02/10/17 06:45 02/10/17 07:02 Bedside Glucose 201 mg/dl 201 mg/dl 69 mg/dl 68 mg/dl Test 02/10/17 07:22 02/10/17 09:20 02/10/17 11:11 Bedside Glucose 111 mg/dl 268 mg/dl Sodium Level 131 mmol/L Potassium Level 4.6 mmol/L Chloride Level 91 mmol/L Carbon Dioxide Level 35 mmol/L Anion Gap 5.0 mmol/L Blood Urea Nitrogen 125 mg/dl Creatinine 2.10 mg/dl Est Creatinine Clear Calc Drug Dose 30.1 ml/min Estimated GFR () 31.8 Estimated GFR (Non- 27.5 BUN/Creatinine Ratio 59.5 Random Glucose 243 mg/dl Calcium Level 9.1 mg/dl Magnesium Level 2.6 mg/dl Assessment and Plan Pt is an 86 y/o male with a PMH significant for CAD (CABG x2 1996), ischemic cardiomyopathy, chronic combined systolic and diastolic CHF, severe COPD, ATILIO on CPAP, mild , HTN, dyslipidemia, recently diagnosed A-fib, and CKD stage 3 who presents with complaints of worsening shortness of breath as well as 7 lb weight gain in 1 week. Admitted for acute on chronic combined CHF. Acute on chronic hypoxemic respiratory failure likely contributory from acute on chronic combined systolic and diastolic heart failure:CXR consistent with pulm vascular congestion and bilat small pleural effusions, atelectasis. No other signs or sxs of PNA (CXR suggests possible RLL PNA) Admitted to [facility] for cardiac monitoring, had 1 episode of 5 beats VT on 02/09, none since then, remains in A-fib. 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, diuresed well now down 4 kg BW and -5.8L - Monitor I&Os- Vuong placed, and daily weights--> dc Vuong today - Cardiology consulted, appreciate recs Atrial fibrillation, rate controlled-newly diagnosed in Cardio office last week , started on Eliquis: stable - Continue Coreg 25 mg BID - continue Eliquis 2.5 mg BID and adjust dose in future if renal function improves (if 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< 1.5) - Cardiology following, will need AC for several weeks, likely antiarrhythmic then afterwards or cardioversion 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- baseline Cr 1.5-1.8:was worsening to 2.3, now improved after holding lasix to 2.1 today - continue to hold nephrotoxic agents (Losartan, lasix) and renally dose medications as appropriate - Follow PRP CAD s/p CABG x2, HTN: - Continue Coreg, Pravastatin 40 mg HS - ASA held at admission due to chronic anemia and starting anticoagulation for a.fib- resume at discharge per cardiology if H&H stable - Losartan held as above IDDM, with hypoglycemia: HgbA1C 6.5% 01/2017, continues to have AM hypoglycemia despite reduced dose of Lantus - Typically on Lantus 63 units HS, decrease again to 25 units qhs and add on 5 units qAM - BSG ACHS and ISS while inpatient ATILIO: Continue CPAP at night and while napping Chronic anemia- baseline hgb 10.0- STABLE COPD- STABLE: Continue Advair, Spiriva, Prednisone taper DVT prophylaxis with eliquis Code Status: LEVEL V, DNR Dispo: Will need rehab, poor mobility per PT recs, updated, both are in agreement with decision
[2017-02-10] MEDS: PRAVASTATIN SOD 40 MG TAB PO SCH (20:55)
[2017-02-10] MEDS: INSULIN GLARGINE SOLOSTAR 100 UNITS/ML 3 ML PEN SC SCH (21:00)
[2017-02-11] VITALS (7 sets, daily range): BP systolic 100–137; BP diastolic 56–85; PULSE 60–80; TEMP 36–36.5; O2SAT 92–100
[2017-02-11 07:07] LABS: HEMATOCRIT 33.7 % (42-52); MEAN CELL VOLUME 96.6 fL (80-100); MEAN CORPUSCULAR HEMOGLOBIN 28.7 pg (25-34); MEAN CORPUSCULAR HGB CONC 29.7 g/dl (32-36); MEAN PLATELET VOLUME 10.7 fL (7.4-10.4); PLATELET COUNT 209 K/uL (130-400); RED BLOOD COUNT 3.49 M/uL (4.7-6.1); WHITE BLOOD COUNT 8.51 K/uL (4.8-10.8)
[2017-02-11 07:43] LABS: BUN/CREATININE RATIO 65.6 (10-20); CALCIUM 9.1 mg/dl (8.5-10.1); CREATININE 1.86 mg/dl (0.60-1.40); MAGNESIUM 3.1 mg/dl (1.8-2.4); POTASSIUM 4.4 mmol/L (3.5-5.1)
[2017-02-11] MEDS: TAMSULOSIN HCL 0.4 MG CAP PO SCH (07:48)
[2017-02-11] MEDS: CARVEDILOL 25 MG TAB PO SCH ×2 (07:48→20:24)
[2017-02-11] MEDS: APIXABAN 2.5 MG TAB PO SCH ×2 (07:48→20:24)
[2017-02-11] MEDS: INSULIN ASPART 100 UNITS/ML 3 ML PEN SC SCH ×4 (07:51→21:22)
[2017-02-11] MEDS: FLUTICASONE/SALMETEROL (ADVAIR) 500/50 INH 14 PUFF INH SCH ×2 (07:52→20:24)
[2017-02-11] MEDS ORDERED: INSULIN GLARGINE SOLOSTAR 100 UNITS/ML 3 ML PEN SC SCH (09:00)
[2017-02-11] MEDS ORDERED: FUROSEMIDE 40 MG TAB PO ONE (10:00)
[2017-02-11] MEDS: TIOTROPIUM BROMIDE 5 PUFF/90 MCG INH INH SCH (10:13)
[2017-02-11] MEDS: PRAVASTATIN SOD 40 MG TAB PO SCH (20:24)
--- NOTE | 2017-02-11 20:48 | Hospitalist Progress Note ---
Hospitalist Progress Note Date of Service Feb 11, 2017. Subjective Pt evaluation today including: conversation w/ patient, conversation w/ family , physical exam Voiding: no voiding problems (passed trial of void since discontinuation of Ortiz catheter today) Patient denies shortness of breath or chest pain. He is drowsy today and naps frequently. His renal function improved today and I restarted his Lasix. Telemetry showed atrial fibrillation, bigeminy, PVCs, PVC couplets All Other Systems: Reviewed and Negative Objective Vital Signs Date Time Temp Pulse Resp B/P (MAP) Pulse Ox O2 Delivery O2 Flow Rate FiO2 02/11/17 19:50 36.5 75 22 111/70 (84) 92 Nasal Cannula 3.0 02/11/17 16:00 Nasal Cannula 3.0 02/11/17 15:40 36.4 80 20 137/65 (89) 97 Nasal Cannula 3.0 02/11/17 12:00 Nasal Cannula 3.0 02/11/17 11:44 36.3 70 19 100/56 (71) 100 Nasal Cannula 4.0 02/11/17 08:05 36.4 67 20 116/68 (84) 96 BiPAP 02/11/17 08:00 Nasal Cannula 3.0 02/11/17 04:02 CPAP 02/11/17 03:38 36.5 67 17 135/85 (102) 95 CPAP 02/11/17 00:02 Nasal Cannula 3.0 02/10/17 23:29 36.4 63 18 106/58 (74) 94 CPAP 3.5 02/10/17 22:10 60 97 3.0 Physical Exam General Appearance: WD/WN, no apparent distress (but drowsy and falls asleep at times during the interview) Eyes: normal inspection, sclerae normal ENT: hearing grossly normal Neck: trachea midline Respiratory/Chest: no respiratory distress, no accessory muscle use, + decreased breath sounds (diminished slightly at the bases bilaterally) Cardiovascular: no murmur, + irregularly irregular (with normal rate), + pertinent finding (trace pitting edema in the legs bilaterally) Abdomen: normal bowel sounds, non tender, soft Extremities: no calf tenderness Neurologic/Psychiatric: + pertinent finding (drowsy but easily wakes up upon verbal stimulation and follows all commands) Skin: normal color, warm/dry Laboratory Results Last 24 Hours Test 02/11/17 06:39 02/11/17 06:42 02/11/17 11:06 02/11/17 16:20 Bedside Glucose 226 mg/dl 143 mg/dl 301 mg/dl White Blood Count 8.51 K/uL Red Blood Count 3.49 M/uL Hemoglobin 10.0 g/dL Hematocrit 33.7 % Mean Corpuscular Volume 96.6 fL Mean Corpuscular Hemoglobin 28.7 pg Mean Corpuscular Hemoglobin Concent 29.7 g/dl RDW Standard Deviation 55.0 fL RDW Coefficient of Variation 15.9 % Platelet Count 209 K/uL Mean Platelet Volume 10.7 fL Sodium Level 136 mmol/L Potassium Level 4.4 mmol/L Chloride Level 95 mmol/L Carbon Dioxide Level 36 mmol/L Anion Gap 5.0 mmol/L Blood Urea Nitrogen 122 mg/dl Creatinine 1.86 mg/dl Est Creatinine Clear Calc Drug Dose 33.9 ml/min Estimated GFR () 36.9 Estimated GFR (Non- 31.8 BUN/Creatinine Ratio 65.6 Random Glucose 67 mg/dl Calcium Level 9.1 mg/dl Magnesium Level 3.1 mg/dl Assessment and Plan Pt is an 86 y/o male with a PMH significant for CAD (CABG x2 1996), ischemic cardiomyopathy, chronic combined systolic and diastolic CHF, severe COPD, ATILIO on CPAP, mild , HTN, dyslipidemia, recently diagnosed A-fib, and CKD stage 3 who presents with complaints of worsening shortness of breath as well as 7 lb weight gain in 1 week. Admitted for acute on chronic combined CHF. Acute on chronic hypoxemic respiratory failure likely contributory from acute on chronic combined systolic and diastolic heart failure:CXR consistent with pulm vascular congestion and bilat small pleural effusions, atelectasis. No other signs or sxs of PNA (CXR suggests possible RLL PNA) Admitted to [facility] for cardiac monitoring, had 1 episode of 5 beats VT on 02/09, none since then, remains in A-fib. 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, diuresed well now has diuresed 6.6 L net negative -Restart Lasix 40 mg by mouth every morning which is lower than his usual home dose of 80 mg by mouth twice a day - Monitor I&Os, daily weights, Ortiz discontinued today -Should go out on a low sodium diet and a fluid restriction at the [facility] - Cardiology consulted, appreciate recs-follow up in the heart failure clinic in 1-2 weeks Atrial fibrillation, rate controlled-newly diagnosed in Cardio office last week , started on Eliquis: stable - Continue Coreg 25 mg BID - continue Eliquis 2.5 mg BID and adjust dose in future if renal function improves (if pricing strategist< 1.5) - Cardiology following, will need AC for several weeks, likely antiarrhythmic then afterwards or cardioversion 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- baseline Cr 1.5-1.8:was worsening to 2.3, now improved after holding lasix to 1.86 which is around his baseline - continue to hold Losartan, but will restart lasix at 40 mg by mouth every morning - renally dose medications as appropriate - Follow PRP CAD s/p CABG x2, HTN: - Continue Coreg, Pravastatin 40 mg HS - ASA held at admission due to chronic anemia and starting anticoagulation for a.fib- resume at discharge per cardiology if H&H stable - Losartan held as above IDDM, with hypoglycemia and now hyperglycemia: HgbA1C 6.5% 01/2017, now with hyperglycemia since reduced dose of Lantus - Typically on Lantus 63 units HS, continue 25 units qhs and increase to 10 units every morning - BSG ACHS and ISS while inpatient ATILIO: Continue CPAP at night and while napping Chronic anemia- baseline hgb 10.0- STABLE COPD- STABLE: Continue Advair, Spiriva, Prednisone taper-can stop prednisone tomorrow-unclear if this is his chronic dose? DVT prophylaxis with eliquis Code Status: LEVEL V, DNR Dispo: Has bed available at [facility] on Saturday for discharge
[2017-02-11] MEDS: INSULIN GLARGINE SOLOSTAR 100 UNITS/ML 3 ML PEN SC SCH (21:23)
[2017-02-12] MEDS ORDERED: FUROSEMIDE INJ 20 MG in SYRINGE 0 ML IV SCH (02:45)
[2017-02-12] MEDS ORDERED: FUROSEMIDE 40 MG/4 ML VIAL ONE (02:45)
[2017-02-12] MEDS ORDERED: NURSING VERBAL MED ORDER ONE (02:45)
[2017-02-12 03:35] VITALS: BP 108/66; PULSE 70; O2SAT 90
[2017-02-12 07:17] VITALS: BP 109/70; PULSE 83; TEMP 36.6; O2SAT 92
--- NOTE | 2017-02-12 07:36 | DIAGNOSTIC IMAGING REPORT ---
CHEST ONE VIEW PORTABLE HISTORY: Short of breath. COMPARISON: Chest 02/09/2017. FINDINGS: There are poststernotomy changes. The heart remains mildly enlarged. Mild pulmonary edema with a small right and trace left pleural effusion, unchanged. Hazy airspace opacity within the right lung base is again noted. IMPRESSION: No change in the pulmonary edema and bilateral pleural effusions. Electronically signed by: Antonino Rooney M.D. 02/12/2017 7:34 AM Dictated Date/Time: 02/12/2017 7:33 AM
[2017-02-12 07:47] LABS: BUN/CREATININE RATIO 64.6 (10-20); CALCIUM 9.2 mg/dl (8.5-10.1); CREATININE 1.78 mg/dl (0.60-1.40); MAGNESIUM 2.9 mg/dl (1.8-2.4); POTASSIUM 4.2 mmol/L (3.5-5.1)
[2017-02-12] MEDS: INSULIN ASPART 100 UNITS/ML 3 ML PEN SC SCH ×2 (08:04→13:53)
[2017-02-12] MEDS: CARVEDILOL 25 MG TAB PO SCH (08:06)
[2017-02-12] MEDS: FLUTICASONE/SALMETEROL (ADVAIR) 500/50 INH 14 PUFF INH SCH (08:06)
[2017-02-12] MEDS: APIXABAN 2.5 MG TAB PO SCH (08:07)
[2017-02-12] MEDS: TAMSULOSIN HCL 0.4 MG CAP PO SCH (08:08)
[2017-02-12] MEDS: TIOTROPIUM BROMIDE 5 PUFF/90 MCG INH INH SCH (08:09)
[2017-02-12] MEDS ORDERED: FUROSEMIDE 40 MG TAB PO SCH (09:00)
[2017-02-12] MEDS ORDERED: INSULIN GLARGINE SOLOSTAR 100 UNITS/ML 3 ML PEN SC SCH (09:00)
--- NOTE | 2017-02-12 09:51 | CARDIOLOGY PROGRESS NOTE ---
DATE: 02/12/2017 SUBJECTIVE: Mr. Rivera is resting comfortably at the bedside without complaints of chest pain. Does note dyspnea with physical activity. His is at the bedside. He is anxious for transfer to [facility] today. OBJECTIVE: VITAL SIGNS: Blood pressure is 110/70 with an irregular pulse of 80. Respiratory rate is 18. The patient is afebrile at 36.6 degrees Celsius. Saturation 92% on 3 liters nasal cannula. NECK: Supple with full carotid upstrokes. No obvious bruits or transmitted murmurs. Jugular venous pressure is flat at 90 degrees. CARDIOVASCULAR: Reveals an irregular rhythm with distant heart sounds. No obvious murmurs. LUNGS: Clear without rales, rhonchi or wheezes. ABDOMEN: Obese without bruits. EXTREMITIES: Reveal 1+ pretibial edema bilaterally. DATA: Electrolytes note sodium of 135, potassium 4.2, chloride 95, bicarbonate 37, BUN 115, creatinine 1.78, glucose 86. Weight is 103.4 kg, down 8.6 kilograms from admission. 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 IMPRESSION AND PLAN: 1. Acute combined congestive heart failure - the patient has diuresed successfully. Currently on oral furosemide. Creatinine has stabilized and improved. 2. Left ventricular dysfunction -- ejection fraction of 30-35% with an inferior wall motion abnormality. 3. Mild aortic stenosis -- with mild aortic insufficiency. 4. Moderate mitral regurgitation. 5. Permanent atrial fibrillation -- ventricular response adequately controlled. Could consider chemical versus electrical cardioversion after 3 weeks of anticoagulation. 6. Coronary artery disease -- status post coronary artery bypass grafting x2. 7. Disposition -- stable for transfer to [facility] from a cardiac perspective.
[2017-02-12] MEDS ORDERED: ELQ25 PO (12:41)
[2017-02-12] MEDS ORDERED: INSDGIPEN SC ×2 (12:41)
[2017-02-12] MEDS ORDERED: LSX40 PO (12:41)
--- NOTE | 2017-02-12 12:45 | Discharge Instructions ---
Discharge Instructions Date of Service Feb 12, 2017. Admission Reason for Admission: Acute On Chronic Systolic(Congestive)Heart Failure Discharge Discharge Diagnosis / Problem: Acute on chronic combined congesive heart failure Discharge Goals Goal(s): Decrease discomfort, Improve function, Increase independence, Improve disease control, Learn about illness, Diagnostic testing, Prevent Disease Progression Activity Recommendations Activity Limitations: resume your previous activity Exercise/Sports Limitations: as tolerated . Instructions / Follow-Up Instructions / Follow-Up Patient to be discharged home Please note reduction in lasix dose to 40 mg tablet ONCE a day Also lantus reduced to 10 units in the morning and 25 units at nighttime Also noted addition of eliquis 2.5 mg tablet twice a day Please follow up with Dr Gann in 1-2 weeks Please follow up with Dr Turner in 1-2 weeks If worsening chest pain, shortness of breath, or bleeding in stools please report to ER Current Hospital Diet Patient's current hospital diet: Diabetes Type 2 Diet, AHA Diet (Heart Healthy) Discharge Diet Recommended Diet: AHA Diet (Heart Healthy), Diabetes Type 2 Diet Pending Studies Studies pending at discharge: no Laboratory Results Hemoglobin A1c Test 02/04/17 11:07 Range/Units Estimated Average Glucose 140 mg/dl Hemoglobin A1c 6.5 H 4.5-5.6 % Medical Emergencies . Who to Call and When: Medical Emergencies: If at any time you feel your situation is an emergency, please call 911 immediately. . Non-Emergent Contact Non-Emergency issues call your: Primary Care Provider Call Non-Emergent contact if: you have a fever, your pain is worsening, you have any medication questions . . "Provider Documentation" section prepared by Navin Archuleta. . VTE Core Measure Inpt VTE Proph given/why not?: Enoxaparin (Lovenox)SQ, Other Anticoagulation
[2017-02-12 13:36] VITALS: BP 109/70; PULSE 83; TEMP 36.6; O2SAT 92
--- NOTE | 2017-02-12 15:53 | Discharge Summary ---
Discharge Summary Date of Service Feb 12, 2017. Discharge Summary Admission Date: Feb 05, 2017 at 18:33 Discharge Date: Feb 12, 2017 Discharge Disposition: Home Principal Diagnosis: Acute on chronic combined congestive heart failure Consultations: Cardiology Medication Reconciliation New Medications: Apixaban (Eliquis) 2.5 Mg Tab 2.5 MG PO BID for 30 Days, #60 TAB Furosemide (Furosemide) 40 Mg Tab 40 MG PO QAM for 30 Days, #30 TAB Insulin Glargine (Lantus Solostar) 100 Unit/Ml Inj 10 UNITS SC QAM, #1 BOX Insulin Glargine (Lantus Solostar) 100 Unit/Ml Inj 25 UNITS SC HS, #1 BOX Continued Medications: Carvedilol (Coreg) 25 Mg Tab 25 MG PO BID Febuxostat (Uloric) 40 Mg Tab 40 MG PO DAILY Fluticasone Prop/Salmeterol (Advair Diskus 500/50 60 Dose) 1 Ea Aerp 1 PUFF INH BID Glucosamine-Chondroitin (Glucosamine & Chondroitin 500-400 mg) 1 Cap Cap 1 CAP PO DAILY Insulin Aspart (Novolog Flexpen) 100 Units/Ml Inj 30 UNITS SC QAM WITH BREAKFAST Insulin Aspart (Novolog Flexpen) 100 Units/Ml Inj 25 UNITS SC DAILY LUNCHTIME Insulin Aspart (Novolog Flexpen) 100 Units/Ml Inj 40 UNITS PO QPM WITH SUPPER, PLUS SLIDING SCALE TOTAL DAILY DOSE 125 UNITS Insulin Aspart (Novolog Flexpen) 100 Units/Ml Inj SC UD SLIDING SCALE. TOTAL DAILY DOSE = 125 UNITS Losartan Potassium (Losartan Potassium) 25 Mg Tab 12.5 MG PO DAILY Pravastatin Sodium (Pravastatin Sodium) 40 Mg Tab 40 MG PO HS Prednisolone Sodium Phosphate (Prednisolone Sodium Phosp) 15 Mg/5 Ml Madai 1 DROP OPB DAILY Tamsulosin Hcl (Flomax) 0.4 Mg Cap 0.4 MG PO DAILY Tiotropium Liberal (Spiriva Handihaler) 30 Puff/540 Mcg Aerp 1 CAP INH DAILY Discontinued Medications: Furosemide (Lasix) 80 Mg Tab 80 MG PO UD PRN for WEIGHT GAIN TAKE 80 MG BY MOUTH TWICE DAILY UNTIL WEIGHT RETURNS TO BASELINE, THEN RETURN TO 40 MG TWICE DAILY Furosemide (Lasix) 40 Mg Tab 40 MG PO BID Insulin Glargine (Lantus Solostar) 100 Unit/Ml Inj 63 UNITS SC HS Metolazone (Zaroxolyn) 5 Mg Tab 5 MG PO DAILY 30 MINUTES BEFORE FUROSEMIDE Potassium Ext Rel (Klor-Con) 20 Meq Tabcr 20 MEQ PO DAILY Prednisone (Prednisone Tab) 20 Mg Tab 20 MG PO DAILY TAKE 1 TABLET DAILY FOR 2 DAYS IN A ROW, THEN DISCONTINUE (MAR WAS PRINTED ON 02/04/17. PATIENT SHOULD TAKE TODAY UNLESS HE ALREADY HAS, OR IF HE DID NOT START MEDICATION UNTIL 02/05, HE WOULD TAKE UNTIL 02/06) Discharge Exam Review of Systems: Constitutional: No fever, No chills, No sweats, No weakness Eyes: No worsening of vision, No eye pain, No redness, No discharge Respiratory: No cough, No sputum, No wheezing, No shortness of breath Cardiovascular: No chest pain, No orthopnea, No PND, No edema Abdomen: No pain, No nausea, No vomiting, No diarrhea Musculoskeletal: No joint pain, No muscle pain, No swelling, No calf pain Genitourinary - Male: No hematuria, No dysuria, No urinary frequency, No urinary urgency Neurologic: No memory loss, No paralysis, No weakness, No numbness/tingling Psychiatric: No depression symptoms, No anhedonism, No anxiety, No insomnia Endocrine: No fatigue, No excessive thirst Integumentary: No rash, No itch Physical Exam: General Appearance: WD/WN, no apparent distress Eyes: normal inspection, PERRL, EOMI, sclerae normal Neck: supple, no adenopathy, thyroid normal, no JVD Respiratory/Chest: chest non-tender, lungs clear, normal breath sounds, no respiratory distress Cardiovascular: regular rate, rhythm, no edema, no gallop, no JVD Abdomen / GI: normal bowel sounds, non tender, soft, no organomegaly Neurologic/Psychiatric: no motor/sensory deficits, alert, normal mood/affect , oriented x 3 Skin: normal color, warm/dry, no rash Lymphatic: no adenopathy Hospital Course Pt is an 86 y/o male with a PMH significant for CAD (CABG x2 1996), ischemic cardiomyopathy, chronic combined systolic and diastolic CHF, severe COPD, ATILIO on CPAP, mild , HTN, dyslipidemia, recently diagnosed A-fib, and CKD stage 3 who presents with complaints of worsening shortness of breath as well as 7 lb weight gain in 1 week. Admitted for acute on chronic combined CHF. Acute on chronic hypoxemic respiratory failure likely contributory from acute on chronic combined systolic and diastolic heart failure:CXR consistent with pulm vascular congestion and bilat small pleural effusions, atelectasis. No other signs or sxs of PNA (CXR suggests possible RLL PNA) Admitted to [facility] for cardiac monitoring, had 1 episode of 5 beats VT on 02/09, none since then, remains in A-fib. 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, diuresed well now has diuresed 6.6 L net negative -Restart Lasix 40 mg by mouth daily on discharge which is lower than his usual home dose of 80 mg by mouth twice a day - Monitor I&Os, daily weights, Ortiz discontinued today -Should go out on a low sodium diet and a fluid restriction at the [facility] - Cardiology consulted, appreciate recs-follow up in the heart failure clinic in 1-2 weeks Atrial fibrillation, rate controlled-newly diagnosed in Cardio office last week , started on Eliquis: stable - Continue Coreg 25 mg BID - continue Eliquis 2.5 mg BID and adjust dose in future if renal function improves (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< 1.5) - Cardiology following, will need AC for several weeks, likely antiarrhythmic then afterwards or cardioversion 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- baseline Cr 1.5-1.8:was worsening to 2.3, now improved after holding lasix which is around his baseline - continue to hold Losartan, but will restart lasix at 40 mg on discharge - renally dose medications as appropriate - Follow PRP CAD s/p CABG x2, HTN: - Continue Coreg, Pravastatin 40 mg HS - ASA held at admission due to chronic anemia and starting anticoagulation for a.fib- resume at discharge per cardiology if H&H stable - Losartan held as above IDDM, with hypoglycemia and now hyperglycemia: HgbA1C 6.5% 01/2017, now with hyperglycemia since reduced dose of Lantus - Typically on Lantus 63 units HS, continue 25 units qhs and increase to 10 units every morning - BSG ACHS and ISS while inpatient ATILIO: Continue CPAP at night and while napping Chronic anemia- baseline hgb 10.0- STABLE COPD- STABLE: Continue Advair, Spiriva, Prednisone taper-can stop prednisone tomorrow DVT prophylaxis with eliquis Code Status: LEVEL V, DNR Total Time Spent: Greater than 30 minutes This includes examination of the patient, discharge planning, medication reconciliation, and communication with other providers. Discharge Instructions Please refer to the electronic Patient Visit Report (Discharge Instructions) for additional information.
== END 2017-02-12 13:45 | DRG 291 ==
LOC: EDBD 16:00 → C.EDC 16:02 → C.2T 18:33 → ENRESERV 18:46
PROVIDERS: ADMIT Internal Medicine; ATTEND Family Medicine
DX: I13.0 Hypertensive heart and chronic kidney disease with heart failure and stage 1 through stage 4 chronic kidney disease, or unspecified chronic kidney disease (principal); I50.41 Acute combined systolic (congestive) and diastolic (congestive) heart failure; J81.0 Acute pulmonary edema; J96.20 Acute and chronic respiratory failure, unspecified whether with hypoxia or hypercapnia; N17.9 Acute kidney failure, unspecified; Z66 Do not resuscitate; I12.9 Hypertensive chronic kidney disease with stage 1 through stage 4 chronic kidney disease, or unspecified chronic kidney disease; J44.9 Chronic obstructive pulmonary disease, unspecified; E11.9 Type 2 diabetes mellitus without complications; G47.33 Obstructive sleep apnea (adult) (pediatric); N18.3 Chronic kidney disease, stage 3 (moderate); I48.91 Unspecified atrial fibrillation; Z87.891 Personal history of nicotine dependence; Z79.4 Long term (current) use of insulin